=== PATIENT | male | born 1950 | race Two or more races ===

== ENCOUNTER 2024-08-20 14:48 | Outpatient (AMB) | payer OTHER, SELFPAY ==
--- NOTE | 2024-08-20 15:23 | HO.NEPHOV_ITS ---
Vital Signs 08/20/24 15:29 Height 5 ft 7 in Weight 195 lb 6 oz BMI 30.6 BP 152/62 H Blood Pressure Location Lt brachial Position Sitting Pulse 56 Pulse Source Pulse Oximeter Pulse Oximetry (%) 98 Oxygen Delivery Method Room Air Intake Visit Reasons: CKD-LVM Home Assessment Nurse Required: No Accompanied by: Spouse Allergies NSAIDS (Non-Steroidal Anti-Inflamma Allergy (Verified 08/20/24 15:) Unknown Penicillins Allergy (Verified 08/20/24 15:) Rash acetaminophen [From Percocet] Adverse Reaction (Verified 08/20/24 15:) Anxiety diazepam [From Valium] Adverse Reaction (Verified 08/20/24 15:) Swelling oxycodone [From Percocet] Adverse Reaction (Verified 08/20/24:) Anxiety risperidone [From Risperdal] Adverse Reaction (Verified 08/20/24:) Unknown spironolactone Adverse Reaction (Verified 08/20/24:) Unknown HPI Comments Details: I had the pleasure of seeing Rogers in follow-up for his chronic kidney disease. 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 He said he had coronary CT angiography by [facility], results of which were unavailable at the time of this visit. He has been having shortness of breath on exertion with edema. He was taking nonsteroidal anti-inflammatories in the past which has been discontinued. He has no hypoglycemia. He had congestive heart failure in January of 2024. Echocardiogram done at that time showed hyperdynamic LV systolic function with no significant regional wall motion abnormality, indeterminate LV diastolic dysfunction due to atrial fibrillation, normal RV systolic function and size with biatrial enlargement. He had dilated IVC without significant collapse suggestive of elevated right-sided atrial pressures. At that time he needed intravenous diuretics and BiPAP which was transitioned to oral diuretics. He denies any chest pain, nausea, vomiting, diarrhea. He has not had any recent blood work. He is still on metformin. His weight is stable. He is compliant with his medications and low-sodium diet. His blood sugars have been labile. [facility] Medical History (Updated 08/21/24 @ 14:22 by Brian Castano MD) Varicose vein of leg Ulnar neuropathy Restless leg syndrome Obesity Peptic ulcer disease Pedal edema Osteoarthritis HOLLIS (obstructive sleep apnea) New onset tinnitus of right ear Lumbosacral spondylolysis Lumbar radiculopathy Hypertension Hyperlipidemia Hiatal hernia Flexor tenosynovitis of finger Erectile dysfunction Drug-induced gynecomastia Diastasis recti Diabetic neuropathy Diabetes mellitus, type II Coronary artery disease Chronic kidney disease, stage 3a Chronic back pain Carpal tunnel syndrome Carotid artery stenosis Bilateral inguinal hernia Angle-closure glaucoma Surgical History History of coronary artery stent placement Social History Alcohol intake: never Patient Tobacco Use Status: Never used Tobacco Review of Systems Const All systems reviewed & are unremarkable except as noted in HPI and below Physical Exam Vital Signs: Last Vital Signs Pulse 56 08/20/24 15:29 BP 152/62 H 08/20/24 15:29 Pulse Ox 98 08/20/24 15:29 Oxygen Delivery Method Room Air 08/20/24 15:29 BMI result Body Mass Index 30.6 Const General: comfortable and no acute distress Orientation/consciousness: patient oriented x3 HEENT Head: Yes normocephalic Mouth: Normal oral and palatal mucosa present Eyes EOM: EOMs intact bilaterally Neck Neck: Yes supple Resp Auscultation: clear to auscultation bilaterally Cardio Jugular venous distension: no JVD Rate: regular rate GI Palpation (GI): Soft to palpation Auscultation: normal bowel sounds General: Yes no CVA tenderness Back/Spine/Pelvis Back: no CVA tenderness Skin General skin exam: no rashes or lesions noted Neuro General: patient oriented x3 and moves all extremities Extrem General: Yes edema Results Reviewed Nephrology Results: No Data to Display Assessment & Plan Assessment & Plan (1) CKD stage 4 due to type 2 diabetes mellitus: Code(s): E11.22 - Type 2 diabetes mellitus with diabetic chronic kidney disease; N18.4 - Chronic kidney disease, stage 4 (severe) Category: Medical (2) Hypertension: Code(s): I10 - Essential (primary) hypertension Category: Medical Qualifiers: Hypertension type: primary hypertension Qualified Code(s): I10 - Essential (primary) hypertension (3) Secondary hyperparathyroidism of renal origin: Code(s): N25.81 - Secondary hyperparathyroidism of renal origin Category: Medical Plan Rogers has diabetic nephropathy. He has history of AMANDA needing one treatment with hemodialysis. He has been having edema as well as shortness of breath on exertion. He is on torsemide 60 mg twice daily. His blood pressure has been fluctuant. He is mildly hypervolemic. He keeps up with his CPAP. Sestamibi scan was done in the past which showed parathyroid adenoma and was seen by [facility]. He also has history of carotid stenosis and hyperuricemia. I ordered repeat blood work. I plan to cut back his metformin and start him on Jardiance in addition to maximizing Imdur. He should continue low-sodium diet and weigh himself daily. He should avoid nonsteroidal anti-inflammatories. All these have been explained in detail to him and his . Time spent retrieving all the data from [facility], patient encounter and documentation 43 minutes. Follow-up appointment given in 2 weeks' time Orders: Orders Creatinine 08/20/24 - Type 2 diabetes mellitus with diabetic chronic kidney disease, I10 - Essential (primary) hypertension, N18.4 - Chronic kidney disease, stage 4 (severe) Electrolytes 08/20/24 - Type 2 diabetes mellitus with diabetic chronic kidney disease, I10 - Essential (primary) hypertension, N18.4 - Chronic kidney disease, stage 4 (severe) Protein Creatinine Ratio, Ur 08/20/24 - Type 2 diabetes mellitus with diabetic chronic kidney disease, I10 - Essential (primary) hypertension, N18.4 - Chronic kidney disease, stage 4 (severe) Phosphorus 08/20/24 - Type 2 diabetes mellitus with diabetic chronic kidney disease, I10 - Essential (primary) hypertension, N18.4 - Chronic kidney disease, stage 4 (severe) Blood Urea Nitrogen 08/20/24 - Type 2 diabetes mellitus with diabetic chronic kidney disease, I10 - Essential (primary) hypertension, N18.4 - Chronic kidney disease, stage 4 (severe) Calcium 08/20/24. - Type 2 diabetes mellitus with diabetic chronic kidney disease, I10 - Essential (primary) hypertension, N18.4 - Chronic kidney disease, stage 4 (severe) Complete Blood Count Auto Diff 08/20/24 - Type 2 diabetes mellitus with diabetic chronic kidney disease, I10 - Essential (primary) hypertension, N18.4 - Chronic kidney disease, stage 4 (severe) Parathyroid Hormone Intact 08/20/24 - Type 2 diabetes mellitus with diabetic chronic kidney disease, I10 - Essential (primary) hypertension, N18.4 - Chronic kidney disease, stage 4 (severe) Vitamin D 25-OH Total 08/20/24 E11.22 - Type 2 diabetes mellitus with diabetic chronic kidney disease, I10 - Essential (primary) hypertension, N18.4 - Chronic kidney disease, stage 4 (severe) Coding Level of Care Code Est Pt Level 5 (62683) Diagnoses CKD stage 4 due to type 2 diabetes mellitus E11.22; N18.4 Primary hypertension I10 Hypertension type: primary hypertension Secondary hyperparathyroidism of renal origin N25.81
[2024-08-20 15:29] VITALS: BP 152/62; PULSE 56; O2SAT 98; BMI 30.6
== END 2024-08-20 16:26 | disposition home or self-care (01) ==
LOC: HO.HKAS 14:49
PROVIDERS: PCP Internal Medicine; Visit Provider Internal Medicine Nephrology
DX: I12.9 Hypertensive chronic kidney disease with stage 1 through stage 4 chronic kidney disease, or unspecified chronic kidney disease (principal); E11.22 Type 2 diabetes mellitus with diabetic chronic kidney disease; N18.4 Chronic kidney disease, stage 4 (severe); N25.81 Secondary hyperparathyroidism of renal origin
CPT/HCPCS: 99215

== ENCOUNTER → 2024-08-20 14:48 | Outpatient (BNVA) | payer OTHER, SELFPAY | PROVIDERS: PCP Internal Medicine; Visit Provider Internal Medicine Nephrology | DX: E11.22 Type 2 diabetes mellitus with diabetic chronic kidney disease (principal); E11.21 Type 2 diabetes mellitus with diabetic nephropathy; I12.9 Hypertensive chronic kidney disease with stage 1 through stage 4 chronic kidney disease, or unspecified chronic kidney disease; N18.4 Chronic kidney disease, stage 4 (severe); R80.9 Proteinuria, unspecified; N25.81 Secondary hyperparathyroidism of renal origin | CPT/HCPCS: 99212 ==

== ENCOUNTER 2024-09-05 11:52 | Outpatient (AMB) | payer OTHER, SELFPAY ==
[2024-09-05 12:00] VITALS: BP 156/80; PULSE 54; O2SAT 99; BMI 31.8
--- NOTE | 2024-09-05 12:00 | HO.NEPHOV ---
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 Required: No Accompanied by: Spouse Allergies NSAIDS (Non-Steroidal Anti-Inflamma Allergy (Verified 09/05/24 12:05) Unknown Penicillins Allergy (Verified 09/05/24 12:05) Rash acetaminophen [From Percocet] Adverse Reaction (Verified 09/05/24 12:05) Anxiety diazepam [From Valium] Adverse Reaction (Verified 09/05/24 12:05) Swelling oxycodone [From Percocet] Adverse Reaction (Verified 09/05/24 12:05) Anxiety risperidone [From Risperdal] Adverse Reaction (Verified 09/05/24 12:05) Unknown spironolactone Adverse Reaction (Verified 09/05/24 12:05) Unknown HPI Comments Details: Rogers was seen in follow-up for his chronic kidney disease. 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 He is due to have cardiology follow up today.He has been edema but has nephropathy & has edema. He was taking nonsteroidal anti-inflammatories in the past which has been discontinued. He has no hypoglycemia. He had congestive heart failure in January of 2024. Echocardiogram done at that time showed hyperdynamic LV systolic function with no significant regional wall motion abnormality, indeterminate LV diastolic dysfunction due to atrial fibrillation, normal RV systolic function and size with biatrial enlargement. Last imaging showed dilated IVC without significant collapse suggestive of elevated right-sided atrial pressures. He denies any chest pain, nausea, vomiting, diarrhea. He has not had any recent blood work. He is still on metformin. His weight is stable. He is compliant with his medications and low-sodium diet. His blood sugars have been labile. [facility] Medical History (Updated 09/05/24 @ 12:59 by Brian Castano MD) Varicose vein of leg Ulnar neuropathy Restless leg syndrome Obesity Peptic ulcer disease Pedal edema Osteoarthritis HOLLIS (obstructive sleep apnea) New onset tinnitus of right ear Lumbosacral spondylolysis Lumbar radiculopathy Hypertension Hyperlipidemia Hiatal hernia Flexor tenosynovitis of finger Erectile dysfunction Drug-induced gynecomastia Diastasis recti Diabetic neuropathy Diabetes mellitus, type II Coronary artery disease Chronic kidney disease, stage 3a Chronic back pain Carpal tunnel syndrome Carotid artery stenosis Bilateral inguinal hernia Angle-closure glaucoma Surgical History History of coronary artery stent placement Social History Alcohol intake: never Patient Tobacco Use Status: Never used Tobacco Review of Systems Const All systems reviewed & are unremarkable except as noted in HPI and below Physical Exam Vital Signs: Last Vital Signs Pulse 54 09/05/24 12:00 BP 156/80 H 09/05/24 12:00 Pulse Ox 99 09/05/24 12:00 Oxygen Delivery Method Room Air 09/05/24 12:00 BMI result Body Mass Index 31.8 Const General: comfortable and no acute distress Orientation/consciousness: patient oriented x3 HEENT Head: Yes normocephalic Mouth: Normal oral and palatal mucosa present Eyes EOM: EOMs intact bilaterally Neck Neck: Yes supple Resp Auscultation: clear to auscultation bilaterally Cardio Jugular venous distension: no JVD Rate: regular rate GI Palpation (GI): Soft to palpation Auscultation: normal bowel sounds General: Yes no CVA tenderness Back/Spine/Pelvis Back: no CVA tenderness Skin General skin exam: no rashes or lesions noted Neuro General: patient oriented x3 and moves all extremities Extrem General: Yes edema Results Reviewed Nephrology Results: No Data to Display Assessment & Plan Assessment & Plan (1) Hypertension: Code(s): I10 - Essential (primary) hypertension Category: Medical Qualifiers: Hypertension type: primary hypertension Qualified Code(s): I10 - Essential (primary) hypertension (2) CKD stage 4 due to type 2 diabetes mellitus: Code(s): E11.22 - Type 2 diabetes mellitus with diabetic chronic kidney disease; N18.4 - Chronic kidney disease, stage 4 (severe) Category: Medical (3) Secondary hyperparathyroidism of renal origin: Code(s): N25.81 - Secondary hyperparathyroidism of renal origin Category: Medical (4) Edema: Code(s): R60.9 - Edema, unspecified Category: Medical Qualifiers: Edema type: localized Qualified Code(s): R60.0 - Localized edema (5) Hyperuricemia: Code(s): E79.0 - Hyperuricemia without signs of inflammatory arthritis and tophaceous disease Category: Medical Plan Rogers has diabetic nephropathy. He has history of AMANDA needing one treatment with hemodialysis. He has been having edema. He has proteinuria and is on Nifedipine. He is on torsemide 60 mg twice daily. His blood pressure has been fluctuant. He keeps up with his CPAP. Sestamibi scan was done in the past which showed parathyroid adenoma and has seen by [facility]. He also has history of carotid stenosis and hyperuricemia. I staretd him on Allopurinol 100 mg daily as well as Jardiance 10 mg daily. I ordered repeat blood work. I plan to cut back his metformin and increase his Jardiance in addition to maximizing Imdur. We shani have to take him off Nifedipne if his edema is persisting. He should continue low-sodium diet and weigh himself daily. He should avoid nonsteroidal anti-inflammatories. All these have been explained in detail to him and his . Follow-up appointment given in 2 months time Orders: Orders Electrolytes 2 Months E11.22 - Type 2 diabetes mellitus with diabetic chronic kidney disease, I10 - Essential (primary) hypertension, N18.4 - Chronic kidney disease, stage 4 (severe), N25.81 - Secondary hyperparathyroidism of renal origin Calcium 2 Months E11.22 - Type 2 diabetes mellitus with diabetic chronic kidney disease, I10 - Essential (primary) hypertension, N18.4 - Chronic kidney disease, stage 4 (severe), N25.81 - Secondary hyperparathyroidism of renal origin Complete Blood Count Auto Diff 2 Months E11.22 - Type 2 diabetes mellitus with diabetic chronic kidney disease, I10 - Essential (primary) hypertension, N18.4 - Chronic kidney disease, stage 4 (severe), N25.81 - Secondary hyperparathyroidism of renal origin Creatinine 2 Months E11.22 - Type 2 diabetes mellitus with diabetic chronic kidney disease, I10 - Essential (primary) hypertension, N18.4 - Chronic kidney disease, stage 4 (severe), N25.81 - Secondary hyperparathyroidism of renal origin Blood Urea Nitrogen 2 Months E11.22 - Type 2 diabetes mellitus with diabetic chronic kidney disease, I10 - Essential (primary) hypertension, N18.4 - Chronic kidney disease, stage 4 (severe), N25.81 - Secondary hyperparathyroidism of renal origin Medications: New allopurinol 100 mg PO DAILY 90 tabs 4RF empagliflozin (Jardiance) 10 mg PO DAILY 30 tabs 4RF Coding Level of Care Code Est Pt Level 4 (90457) Diagnoses Primary hypertension I10 Hypertension type: primary hypertension CKD stage 4 due to type 2 diabetes mellitus E11.22; N18.4 Secondary hyperparathyroidism of renal origin N25.81 Localized edema R60.0 Edema type: localized Hyperuricemia E79.0
== END 2024-09-05 12:32 | disposition home or self-care (01) ==
PROVIDERS: PCP Internal Medicine; Visit Provider Internal Medicine Nephrology
DX: I12.9 Hypertensive chronic kidney disease with stage 1 through stage 4 chronic kidney disease, or unspecified chronic kidney disease (principal); E11.22 Type 2 diabetes mellitus with diabetic chronic kidney disease; N18.4 Chronic kidney disease, stage 4 (severe); N25.81 Secondary hyperparathyroidism of renal origin; R60.0 Localized edema; E79.0 Hyperuricemia without signs of inflammatory arthritis and tophaceous disease
CPT/HCPCS: 99214

== ENCOUNTER → 2024-09-05 11:52 | Outpatient (BNVA) | payer OTHER, SELFPAY | PROVIDERS: PCP Internal Medicine; Visit Provider Internal Medicine Nephrology | DX: E11.22 Type 2 diabetes mellitus with diabetic chronic kidney disease (principal); I12.9 Hypertensive chronic kidney disease with stage 1 through stage 4 chronic kidney disease, or unspecified chronic kidney disease; N18.4 Chronic kidney disease, stage 4 (severe); N25.81 Secondary hyperparathyroidism of renal origin; R60.0 Localized edema; E79.0 Hyperuricemia without signs of inflammatory arthritis and tophaceous disease | CPT/HCPCS: 99212 ==

== ENCOUNTER 2024-11-14 10:48 | Outpatient (REF) | payer OTHER, SELFPAY ==
--- OUTSIDE RECORDS SUMMARY | 2024-11-14 14:34 | XMS_ITS | Clinical Summary ---
Author Organization [address] [place] [address] [place] [phone] Phone Care Team Providers Care Grocery Packer Name Role Phone Flakito Reyes MD Primary Care Provider Allergies Active Allergy Reactions Criticality Noted Date Comments Acetaminophen 01/25/2024 Diazepam Other 12/12/2023 valium Morphine 12/12/2023 Oxycodone 01/25/2024 Oxycodone-Acetaminophen 12/12/2023 Penicillins 01/25/2024 Risperidone 01/25/2024 Medications Medication Sig Dispensed Refills Start Date End Date Status apixaban (ELIQUIS) 5 mg tablet Take 1 tablet (5 mg total) by mouth 2 (two) times a day. 01/29/2024 Active vit B complx/folic acid/lysine (B COMPLEX VITAMINS PO) Take by mouth. Active carvediloL (COREG) 25 mg tablet Take 1 tablet (25 mg total) by mouth 2 (two) times a day with meals. 01/25/2024 Active cholecalciferol (VITAMIN D-3) 1,250 mcg (50,000 unit) capsule Take 1 capsule (50,000 Units total) by mouth. Active hydrALAZINE (APRESOLINE) 50 mg tablet Take 1 tablet (50 mg total) by mouth 3 (three) times a day. Active NIFEdipine CC (ADALAT CC) 90 mg 24 hr tablet Take 1 tablet (90 mg total) by mouth 1 (one) time each day. Active pantoprazole (PROTONIX) 40 mg EC tablet Take 1 tablet (40 mg total) by mouth 2 (two) times a day. Active spironolactone (ALDACTONE) 25 mg tablet Take 1 tablet (25 mg total) by mouth 1 (one) time each day. 05/07/2024 Active torsemide (DEMADEX) 20 mg tablet Take 3 tablets (60 mg total) by mouth 1 (one) time each day. 02/12/2024 Active potassium chloride (KLOR-CON M20) 20 mEq CR tablet Take 1 tablet (20 mEq total) by mouth 1 (one) time each day. Tablet may be swallowed whole (do not crush/chew/suck on) OR broken in half and each half swallowed separately OR dissolved (whole tablet) in ~4 ounces of water (allow ~2 minutes to dissolve, stir well and administer immediately). TOME DOS TABLETAS (40MEQ) POR VIA ORAL A DIARIO Active empagliflozin (Jardiance) 10 mg tablet Take 1 tablet (10 mg total) by mouth 1 (one) time each day in the morning. Active allopurinoL (ZYLOPRIM) 100 mg tablet Take 1 tablet (100 mg total) by mouth 1 (one) time each day. Active isosorbide mononitrate (IMDUR) 60 mg 24 hr tabletIndications:He art failure with preserved ejection fraction, unspecified HF chronicity (CMS/HCC),Coronary artery disease due to lipid rich plaque Take 1 tablet (60 mg total) by mouth 1 (one) time each day. Do not crush or chew. 30 each 09/05/2024 09/05/2025 Active Active Problems Problem Noted Date Diagnosed Date Coronary artery disease of n ative artery of [place] heart with stable angina pectoris 09/05/2024 Assessment & Plan (09/05/2024 4:04 PM EST): Patient does continue to endorse episodes of shortness of breath with exertion and mild chest discomfort. This has improved since discharge from the hospital with initiation of medication for CAD. At this time, I will increase his isosorbide. We did discuss the potential of moving forward cardiac catheterization and PCI as outlined above. I will see the patient back in 2 months to further evaluate whether or not he has had improvement in his symptoms. Instructed to call 911 or go to the emergency room should the patient begin to experience chest pain or pressure lasting greater than 10 minutes does not resolve with rest. Bruit of right carotid artery 09/05/2024 Assessment & Plan (09/05/2024 4:04 PM EST): Appreciated upon exam today. Subsequently, I have ordered carotid ultrasound to further evaluate for stenosis. Orders: Vascular US duplex carotid bilateral; Future (HFpEF) heart failure with preserved ejection fr action 02/12/2024 Assessment & Plan (09/05/2024 4:04 PM EST): Patient does appear to be mildly volume overloaded during today's exam. We did discuss the potential of increasing his torsemide temporarily. However, the patient has just come from his guest services director who is 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 Encouraged to continue to follow a low-sodium diet and perform daily weights. Patient will reach out to our office with a weight gain of 2 pounds in 1 day or 5 pounds in 5 days accompanied by worsening peripheral edema, shortness of breath or abdominal distention. Orders: ECG 12 lead isosorbide mononitrate (IMDUR) 60 mg 24 hr tablet; Take 1 tablet (60 mg total) by mouth 1 (one) time each day. Do not crush or chew. Lipid panel; Future Lipid panel Acute on chronic congestive heart failure with left ventricular diastolic dysfunction 01/25/2024 Overview (07/13/2024): Last Assessment & Plan: He appears mildly volume overloaded today as evident by worsening bilateral lower extremity edema. Subsequently, I have asked him to increase his torsemide Monday, Monday and Monday with updated blood work on Monday. Encouraged to continue to follow a low-sodium diet and to perform daily weights. Continue spironolactone, torsemide and carvedilol Aortic valve sclerosis 01/25/2024 Overview (07/13/2024): WITHOUT STENOSIS Atrial fibrillation 01/25/2024 Overview (07/13/2024): Last Assessment & Plan: Patient denies perception of recurrence of arrhythmia. He continues to be anticoagulated with full dose Eliquis as his weight is greater than 60 kg and his age is less than 80. Educated on risks and benefits of continuing with anticoagulation including increased risk for hemorrhage and decreased risk for stroke. Encouraged to seek emergent medical attention should the patient sustain a fall involving a head strike. The patient understands these risks and agrees to continue. Chest pain 01/25/2024 Overview (07/13/2024): Last Assessment & Plan: Patient had abnormal stress test. He is currently waiting to have cardiac CTA which is scheduled for May 29. I have started him on isosorbide in the interim to help with symptoms of shortness of breath and chest discomfort. Instructed to call 911 or go to the emergency room should the patient begin to experience chest pain or pressure lasting greater than 10 minutes does not resolve with rest. HLD (hyperlipidemia) 01/25/2024 Assessment & Plan (09/05/2024 4:04 PM EST): Continue statin therapy and be mindful of his dietary fat intake. I have given him a lipid slip to update fasting lipid profile to further evaluate lipid control. Goal LDL less than 70 however ideally 55 in the setting of coronary artery disease. Orders: Lipid panel; Future Lipid panel Vascular US duplex carotid bilateral; Future HTN (hypertension) 01/25/2024 Overview (07/13/2024): Last Assessment & Plan: Well controlled with a reading of 134/50. I have made no changes to his medications. Educated on the importance of diet lifestyle to help further assist in reducing blood pressure. The patient was encouraged to follow low-salt low-fat diet, make purposeful strides towards weight loss, and engage in routine aerobic exercise as tolerated. Assessment & Plan (09/05/2024 4:04 PM EST): Continues to be mildly elevated during today's exam. I am increasing his isosorbide for his anginal symptoms. Educated on the importance of diet lifestyle to help further assist in reducing blood pressure. The patient was encouraged to follow low-salt low-fat diet, make purposeful strides towards weight loss, and engage in routine aerobic exercise as tolerated. Respiratory failure 01/25/2024 SOB (shortness of breath) 01/25/2024 Encounters Date Type Department Care Team Description 10/11/2024 Telephone [facility] - [address] [place] [address] Saúl Smith MA Results (Carotid duplex results) 09/23/2024 10:30 AM EST Ancillary Procedure [facility] - [address] [place] [address] Coronary artery disease due to lipid rich plaque; Hyperlipidemia, unspecified hyperlipidemia type; Bruit of right carotid artery 09/05/2024 3:10 PM EST Office Visit [facility] - [address] [place] [phone] Mar Jones NP Heart failure with preserved ejection fraction, unspecified HF chronicity (CMS/HCC) (Primary Dx); Coronary artery disease due to lipid rich plaque; Hyperlipidemia, unspecified hyperlipidemia type; Bruit of right carotid artery; Hypertension, unspecified type; Coronary artery disease of [place] artery of [place] heart with stable angina pectoris (CMS/HCC) from Last 3 Months Surgical History Surgery Date Site/Laterality Comments CARDIAC CATHETERIZATION DONE ON 07/04/2024 AT [facility] INDICATIONS:ABNORMAL STRESS TEST Medical History Medical History Date Comments Acute on chronic congestive heart failure with left ventricular diastolic dysfunction (CMS/HCC) Atrial fibrillation (CMS/HCC) HTN (hypertension) Aortic valve sclerosis Heart failure with preserved ejection fraction ( CMS/HCC) HLD (hyperlipidemia) Chest pain SOB (shortness of breath) Hx of respiratory failure Family History Medical History Relation Name Comments [place] Father Diabetes Other HLD Other Hypertension Other Relation Name Status Comments Father Other Social History Tobacco Use Types Packs/Day Years Used Date Smoking Tobacco: Never Smokeless Tobacco: Never Tobacco Cessation:Counseling Given: Not Answered Alcohol Use Standard Drinks/Week Comments Never 0 (1 standard drink = 0.6 oz pur e alcohol) Sex and Gender Information Value Date Recorded Sex Assigned at Not on file Gender Identity Not on file Sexual Orientation Not on file Job Start Date Occupation Industry Not on file Not on file Not on file Obstetrics History Last Filed Vital Signs Vital Sign Reading Time Taken Comments Blood Pressure 142/84 09/05/2024 3:14 PM EST Pulse 60 09/05/2024 3:14 PM EST Temperature - - Respiratory Rate - - Oxygen Saturation 98% 09/05/2024 3:14 PM EST Inhaled Oxygen Concentration - - Weight 87.1 kg (192 lb) 09/05/2024 3:14 PM EST Height 170.2 cm (5' 7 ) 05/03/2024 11:14 AM EDT Body Mass Index 30.07 05/03/2024 11:14 AM EDT Plan of Treatment Upcoming Encounters Date Type Department Care Team (Late st Contact Info) Description 11/18/2024 8:40 AM EST Office Visit [facility] [address] [facility] [address] [place] [address] Mar Jones, BENJA [address] [place] [address] Health Maintenance Due Date Last Done Comments Diabetes: Annual Foot Exam 1962 Diabetes: Annual Retina Eye Exam 1962 RSV Immunization Patients 60+ Years Old (1 - Risk 60-74 years 1-dose series) 2012 Colorectal Cancer Screening: Colonoscopy 05/14/2024 Depression Screening 05/14/2024 Falls Risk Assessment 05/14/2024 Hepatitis C Screening 05/14/2024 Medicare Annual Wellness Visit 05/14/2024 Social Influencers of Health Screening 05/14/2024 COVID-19 Vaccine ( season) 2024 09/15/2023, 02/24/2022, 08/29/2021, Additional history exists Diabetes: Annual Urine Albumin-Creatinine Ratio (uACR) 09/05/2024 Diabetes: Blood Sugar Control Test (HGBA1C) 09/05/2024 Diabetes: Annual GFR (Glomerular Filtration Rate) 07/08/2025 07/08/2024, 07/08/2024, 06/25/2024, Additional history exists Hypertension/CHF/CAD Annual BMP Blood Test 07/08/2025 07/08/2024, 07/08/2024, 06/25/2024, Additional history exists Cholesterol Screening (Lipid Panel) 10/14/2029 10/14/2024 DTaP,Tdap,and Td Vaccines (5 - Td or Tdap) 02/28/2033 02/28/2023, 08/16/2013, 08/16/2004, Additional history exists Hepatitis A Vaccines Aged Out 08/05/2010, 02/10/2010, 08/03/2009 No longer eligible based on patient's age to complete this topic Hepatitis B Vaccines Completed 08/05/2010, 06/03/2010, 02/10/2010 Zoster Vaccines Completed 05/04/2021, 02/13, 11/19/2013 Pneumococcal Vaccine: 65+ Years Completed 02/22/2024, 08/20/2019, 01/09/2015, Additional history exists Influenza Vaccine Completed 07/30/2024, , 10/18/2023, Additional history exists HIB Vaccines Aged Out No longer eligi ble based on patient's age to complete this topic HPV Vaccines Aged Out No longer eligi ble based on patient's age to complete this topic IPV Vaccines Aged Out No longer eligi ble based on patient's age to complete this topic MMR Vaccines Aged Out No longer eligi ble based on patient's age to complete this topic Meningococcal ACWY Vaccine Aged Out N o longer eligible based on patient's age to complete this topic RSV Immunization Patients Under 20 months Aged Out No longer eligible based on patient's age to complete this topic Varicella Vaccines Aged Out No longer eligible based on patient's age to complete this topic Procedures Procedure Name Priority Date/Time Associated Diagnosis Comments LIPID PANEL WITH REFLEX TO DIRECT LDL Routine 10/14/2024 9:58 AM EST Coronary artery disease due to lipid rich plaque VAS US DUPLEX CAROTID BILATERAL Routine 09/23/2024 11:04 AM EST Coronary artery disease due to lipid rich plaque Hyperlipidemia, unspecified hyperlipidemia type Bruit of right carotid artery ECG 12-LEAD Routine 09/05/2024 3:59 PM EST Heart failure with preserved ejection fraction, unspecified HF chronicity (CMS/HCC) ANNUAL BMP BLOOD TEST Routine 07/08/2024 from Last 3 Months or Most Recently Relevant to Health Maintenance Results * (ABNORMAL) Lipid panel with reflex to direct LDL (10/14/2024 9:58 AM EST) [facility] Cholesterol 128 0 - 200 mg/dL LAB CHEMISTRY METHOD 10/14/2024 4:26 PM EST [facility] Triglycerides 208(H) 0 - 150 mg/dL LAB CHEMISTRY METHOD 10/14/2024 4:26 PM EST [facility] HDL 36(L) >=40 mg/dL LAB CHEMISTRY METHOD 10/14/2024 4:26 PM EST [facility] LDL Calculated 50 0 - 100 mg/dL LAB CHEMISTRY METHOD 10/14/2024 4:26 PM EST [facility] VLDL Cholesterol Jj 41.6 mg/dL LAB CHEMISTRY METHOD 10/14/2024 4:26 PM EST [facility] Non HDL Chol. (LDL+VLDL) 92 <145 mg/dL LAB CHEMISTRY METHOD 10/14/2024 4:26 PM EST [facility] Chol/HDL Ratio 3.6 0.0 - 4.4 LAB CHEMISTRY METHOD 10/14/2024 4:26 PM EST [facility] Blood Venous blood specimen / Unknown Venipuncture / Unknown 10/14/2024 9:58 AM EST 10/14/2024 9:58 AM EST Mar Jones CAMPUS SECURITY DIRECTOR LAB BLOOD YENI MEANS [facility]) [facility] [address] [place] [address], * Vascular US duplex carotid bilateral (09/23/2024 11:04 AM EST) Left CCA dist sys 100 cm/s [facility] LAB Left CCA dist naik 30 cm/s [facility] LEFT COMMON CAROTID ARTERY MID S 119 cm/s [facility] LEFT COMMON CAROTID ARTERY MID D 22 cm/s [facility] LAB Left CCA prox sys 100 cm/s CV [facility] LAB Left CCA prox naik 30 cm/s CV [facility] LAB Left ICA dist sys 88 cm/s CV [facility] LAB Left ICA dist naik 30 cm/s CV [facility] LAB Left ICA mid sys 108 cm/s CV [facility] LAB Left ICA mid naik 26 cm/s CV [facility] LAB Left ICA prox sys 92 cm/s CV VAS LAB Left ICA prox naik 27 cm/s CV [facility] LAB Left ECA sys 257 cm/s [facility] LEFT EXTERNAL CAROTID ARTERY D 36 cm/s [facility] Left Prox Subclavian PSV 232 cm/s [facility] Left vertebral sys 29 cm/s [facility] Right cca dist sys 188 cm/s [facility] LAB Right CCA dist naik 19 cm/s [facility] RIGHT COMMON CAROTID ARTERY MID S 165 cm/s [facility] RIGHT COMMON CAROTID ARTERY MID D 17 cm/s CV [facility] LAB Right CCA prox sys 123 cm/s CV [facility] LAB Right CCA prox naik 23 cm/s CV VAS LAB Right ICA dist sys 94 cm/s CV VAS LAB Right ICA dist naik 22 cm/s CV [facility] LAB Right ICA mid sys 111 cm/s CV [facility] LAB Right ICA mid naik 26 cm/s CV [facility] LAB Right ICA prox sys 107 cm/s [facility] LAB Right ICA prox naik 17 cm/s [facility] LAB Right eca sys 287 cm/s [facility] LAB RIGHT EXTERNAL CAROTID ARTERY D 22 cm/s [facility] Right Prox Subclavian PSV 124 cm/s [facility] Right vertebral sys 56 cm/s [facility] LAB Anatomical Region Laterality Modality Vascular, Abdomen Ultrasound Narrative 10/04/2024 6:38 PM EST ?Right ICA: There is moderate heterogeneous plaque. ?Left ICA: There is moderate heterogeneous plaque. RIGHT. 1. ??There is atherosclerotic plaque in the carotid system as noted above. 2. ??There is less than 50% stenosis in the internal carotid artery based on Doppler velocity. 3. ??The subclavian artery has normal Doppler flow pattern. 4. ??Vertebral artery has normal antegrade flow. LEFT. 1. ??There is atherosclerotic plaque in the carotid system as noted above. 2. ??There is less than 50% stenosis in the internal carotid artery based on Doppler velocity. 3. ??The subclavian artery has normal Doppler flow pattern. 4. ??Vertebral artery has normal antegrade flow. Right Carotid The CCA has moderate heterogeneous plaque. The ICA has moderate heterogeneous plaque. The ECA has moderate heterogeneous plaque. Vertebral flow is antegrade. Left Carotid The CCA has moderate heterogeneous plaque. The ICA has moderate heterogeneous plaque. The ECA has moderate heterogeneous plaque. The vertebral artery flow is retrograde. Forestry Contractor Details A rivas scale, color and doppler analysis ultrasound was performed. During the study longitudinal and transverse views were obtained. Pulsed wave doppler was performed. Overall the study quality was adequate. Mar Jones NP CV VASCULAR CO OCEDURES * ECG 12 lead (09/05/2024 3:59 PM EST) Ventricular Rate ECG 60 BPM GEMUSE Atrial Rate 60 BPM GEMUSE P-R Interval 278 ms GEMUSE QRS Duration 96 ms GEMUSE Q-T Interval 418 ms GEMUSE QTc 418 ms GEMUSE P Wave [place] 49 degrees GEMUSE R [place] 43 degrees GEMUSE T [place] 69 degrees GEMUSE ECG Interpretation Sinus rhythm with 1st degree A-V block Poor R wave progression When compared with ECG of 04-JUL-2024 08:38, Premature ventricular complexes is no longer present Confirmed by Millicent JACOBS YUFENG [id number]) on 09/05/2024 4:38:57 PM GEMUSE 09/05/2024 3:21 PM EST 09/05/2024 4:38 PM EST Mar Jones NP ECG ORDERABLES GEMUSE * Annual BMP Blood Test (07/08/2024) Pathologist [facility] Annual BMP Blood Test abstracted Historical Provider MD ELIZABETH Yeung from Last 3 Months or Most Recently Relevant to Health Maintenance Care Teams Grocery Packer Relationship Specialty Start Date End Date Flakito Reyes MD [address] [place] [id number] PCP - General 01/03/24
--- OUTSIDE RECORDS SUMMARY | 2024-11-14 14:34 | XMS_ITS | Encounter Summary ---
Author Organization [facility] Address [address] [place] [address] Care Team Providers Care Retail Assistant Name Role Phone Flakito Reyes MD Primary Care Provider [phone] Reason for Visit * Reason Onset Date Comments Results 10/11/2024 Carotid duplex r esults Encounter Details Date Type Department Care Team ([facility] st Contact Info) Description 10/11/2024 Telephone [facility] - [facility] [address] [facility] [address] [place] [address] Saúl Smith MA Results (Carotid duplex results) Social History Tobacco Use Types Packs/Day Years Used Date Smoking Tobacco: Never Smokeless Tobacco: Never Alcohol Use Standard Drinks/Week Comments Never 0 (1 standard drink = 0.6 oz pur e alcohol) Sex and Gender Information Value Date Recorded Sex Assigned at Not on file Gender Identity Not on file Sexual Orientation Not on file Job Start Date Occupation Industry Not on file Not on file Not on file documented as of this encounter Progress Notes * Saúl Smith MA - 10/21/2024 10:35 AM EST Sukhi Manuel upon further review of pt's OV note from pcp pt is already on Atorvastatin 80 mg qd. I did check with pharmacy and he had it last filled in 09/2024. Per Mar no med adjustments at this time. Will continue to monitor. I will call at some point today to inform pt with child care center administrator. Thank you. * Saúl Smith MA - 10/17/2024 8:13 AM EST Lipid results in chart. Labs show a 208 triglycerides. Please advise. Thank you. * Saúl Smith MA - 10/11/2024 4:01 PM EST Spoke to pt with tongan interpretor on the phone. Relayed message to pt from Mar Jones NP. Pt confirmed he did not have fasting cholesterol drawn he is aware that he needs to have this done [place] Monday per Mar. Pt agrees and will go to to [address] [place] [address] Monday. He is aware of U/S results as well. * Saúl Smith MA - 10/11/2024 4:01 PM EST ----- Message from A BENJA Jones sent at 10/11/2024 3:58 PM EST ----- Can we please reach out to this patient and ask if he has had his lipid panel drawn yet. The patient's carotid duplex came back noted moderate plaque bilaterally and he will likely need to be on statin therapy as well as aspirin in light of this bryan que as well as his coronary disease. documented in this encounter Plan of Treatment Upcoming Encounters Date Type Department Care Team (Late st Contact Info) Description 11/18/2024 8:40 AM EST Office Visit [facility] - [facility] [address] [facility] [address] [place] [address] Mar Jones NP [address] [facility] [address] [place] [phone] documented as of this encounter Results * (ABNORMAL) Lipid panel with reflex to direct LDL (10/14/2024 9:58 AM EST) [facility] Cholesterol 128 0 - 200 mg/dL LAB CHEMISTRY METHOD 10/14/2024 4:26 PM EST [facility] Triglycerides 208(H) 0 - 150 mg/dL LAB CHEMISTRY METHOD 10/14/2024 4:26 PM [facility] HDL 36(L) >=40 mg/dL LAB CHEMISTRY METHOD 10/14/2024 4:26 PM [facility] LDL Calculated 50 0 - 100 mg/dL LAB CHEMISTRY METHOD 10/14/2024 4:26 PM [facility] VLDL Cholesterol Jj 41.6 mg/dL LAB CHEMISTRY METHOD 10/14/2024 4:26 PM [facility] Non HDL Chol. (LDL+VLDL) 92 <145 mg/dL LAB CHEMISTRY METHOD 10/14/2024 4:26 PM [facility] Chol/HDL Ratio 3.6 0.0 - 4.4 LAB CHEMISTRY METHOD 10/14/2024 4:26 PM [facility] Blood Venous blood specimen / Unknown Venipuncture / Unknown 10/14/2024 9:58 AM EST 10/14/2024 9:58 AM EST Mar Jones VIAL GAUGER LAB BLOOD YENI MEANS [facility] Organization Address City/State/ZIP Co de Phone Number [facility] [address] [place] [address], documented in this encounter Visit Diagnoses Diagnosis Coronary artery disease due to lipid rich plaque- Primary documented in this encounter Care Teams Retail Assistant Relationship Specialty Start Date End Date Flakito Reyes MD [address] [place] [id number] PCP - General 01/03/24 documented as of this encounter
--- OUTSIDE RECORDS SUMMARY | 2024-11-14 14:34 | XMS_ITS ---
Author Organization [facility] Address Unknown Allergies, Adverse Reactions, Alerts Substance Reaction Status Noted Date Resolved Date Valium active 11/07/2023 Spironolactone active 11/07/2023 RisperDAL active 11/07/2023 Percocet active 11/07/2023 Penicillin active 11/07/2023 NSAIDs active 11/07/2023 Morphine active 11/07/2023 Problems Problem Status Start Date End Date SPONTANEOUS BACTERIAL PERITO NITIS (Primary) (K65.2 - ICD-10-CM) ACTIVE 11/07/2023 ANEMIA IN CHRONIC KIDNEY DISEASE (D63.1 - ICD-10-CM) A CTIVE 11/07/2023 MYOCARDIAL INFARCTION TYPE 2 (I21.A1 - ICD-10-CM) ACTI VE 11/07/2023 EPISTAXIS (R04.0 - ICD-10-CM) ACTIVE 11/27/2023 ANEMIA, UNSPECIFIED (D64.9 - ICD-10-CM) ACTIVE 0 11/27/2023 PERITONITIS, UNSPECIFIED (K65.9 - ICD-10-CM) ACTIVE 11/27/2023 SEVERE SEPSIS WITH SEPTIC SHOCK (R65.21 - ICD-10-CM) A CTIVE 10/29/2023 UNSTEADINESS ON FEET (R26.81 - ICD-10-CM) ACTIVE 11/08/2023 DIFFICULTY IN WALKING, NOT E LSEWHERE CLASSIFIED (R26.2 - ICD-10-CM) ACTIVE 11/08/2023 MUSCLE WEAKNESS (GENERALIZED) (M62.81 - ICD-10-CM) ACT CHARLIE 10/31/2023 ACUTE KIDNEY FAILURE WITH TU BULAR NECROSIS (N17.0 - ICD-10-CM) ACTIVE 11/07/2023 BODY MASS INDEX [BMI] 32.0-3 2.9, ADULT (Z68.32 - ICD-10-CM) ACTIVE 11/07/2023 CHRONIC KIDNEY DISEASE, UNSPECIFIED (N18.9 - ICD-10-CM ) ACTIVE 11/07/2023 CHRONIC KIDNEY DISEASE, STAG E 3 UNSPECIFIED (N18.30 - ICD-10-CM) ACTIVE 11/07/2023 ESSENTIAL (PRIMARY) HYPERTENSION (I10 - ICD-10-CM) ACT CHARLIE 11/07/2023 CHRONIC ATRIAL FIBRILLATION, UNSPECIFIED (I48.20 - ICD-10-CM) ACTIVE 11/07/2023 ATHEROSCLEROTIC HEART DISEAS E OF [place] CORONARY ARTERY WITHOUT ANGINA PECTORIS (I25.10 - ICD-10-CM) ACTIVE 11/07/2023 OTHER MYOCARDIAL INFARCTION TYPE (I21.A9 - ICD-10-CM) ACTIVE 11/07/2023 TYPE 2 DIABETES MELLITUS WIT HOUT COMPLICATIONS (E11.9 - ICD-10-CM) ACTIVE 11/07/2023 OBSTRUCTIVE SLEEP APNEA (GORDY LT) (PEDIATRIC) (G47.33 - ICD-10-CM) ACTIVE 11/07/2023 DEPRESSION, UNSPECIFIED (F32.A - ICD-10-CM) ACTIVE 11/07/2023 NEED FOR ASSISTANCE WITH PERSONAL CARE (Z74.1 - ICD-10 -CM) ACTIVE 10/31/2023 ACUTE KIDNEY FAILURE, UNSPECIFIED (N17.9 - ICD-10-CM) ACTIVE 10/29/2023 Encounters Encounter Performer Performer Role Encounter Diagnoses Location Date Leave - [facility]) - Acute care hospital [facility] 11/07/2023 08:57 pm EST - 11/19/2023 12:24 pm EST Discharge - Discharged to home or self care - [facility] - Private home/apt. with home health services [facility] 11/21/2023 06:05 pm EST - 11/29/2023 03:15 pm EST Reason For Referral Bleeding (other than GI) Immunizations Vaccine Date Influenza 08/18/2022 12:00 am EDT Hepatitis B 06/03/2010 12:00 am EDT Pneumococcal Conjugate Vaccine (PCV13) 0 01/09/2015 12:00 am EDT Pneumococcal Polysaccharide Vaccine (PPS V23) 08/20/2019 12:00 am EST SARS-COV-2 (COVID-19) 01/21/2021 12:00 a m EDT SARS-COV-2 (COVID-19) 12/31/2020 12:00 a m EDT SARS-COV-2 (COVID-19 BOOSTER) 02/24/2022 12:00 am EDT SARS-COV-2 (COVID-19 BOOSTER) 08/29/2021 12:00 am EST Social History
--- OUTSIDE RECORDS SUMMARY | 2024-11-14 14:35 | XMS_ITS | Clinical Summary ---
Author Organization [facility] Address [address] [address] [place] [address] Phone Care Team Providers Care Digital Sales Executive Name Role Phone Flakito Reyes MD Primary Care Provider Allergies Active Allergy Reactions Criticality Noted Date Comments Diazepam 06/05/2023 Other reaction(s): Sweating bad reaction pt does not remeber reaction Morphine Other (see comments) 06/05/2023 Nsaids 06/05/2023 Penicillins 10/12/2021 Oxycodone-Acetaminophen 10/12/2021 Risperidone 08/06/2001 Other reaction(s): Drug-induced dystonia Spironolactone Other (see comments) 06/05/2023 Medications omeprazole (PriLOSEC) [address] capsule Take 1 capsule by mouth 2 (two) times a day Active acetaminophen (TYLENOL 8 HOUR) 650 MG 8 hr tablet Take 2 tablets by mouth 3 (three) times a day Active aspirin (ST WILDER) 81 MG EC tablet Take 1 tablet by mouth 1 (one) time each day Active atorvastatin (LIPITOR) 80 MG tablet Take 1 tablet by mouth 1 (one) time each day Active carvedilol (COREG) 25 MG tablet Take 1 tablet by mouth 2 (two) times a day Active cholecalciferol (VITAMIN D-3) 25 MCG (1000 UT) capsule Take 1 capsule by mouth 1 (one) time each day Active cloNIDine (CATAPRES) 0.2 MG tablet Take 1 tablet by mouth 2 (two) times a day 09/12/2016 Active cyclobenzaprine (FLEXERIL) 10 MG tablet Take 1 tablet by mouth 1 (one) time each day Active Dulaglutide (Trulicity) 0.75 MG/0.5ML solution pen-injector Active eplerenone (INSPRA) 50 MG tablet Take 1 tablet by mouth 1 (one) time each day 09/14/2018 Active hydrALAZINE (APRESOLINE) 100 MG tablet Take 1 tablet by mouth 2 (two) times a day 01/15/2017 Active lisinopril (PRINIVIL,ZESTR IL) 40 MG tablet Take 1 tablet by mouth 2 (two) times a day 02/15/2016 Active metFORMIN (GLUCOPHAGE) 1000 MG tablet Take 1 tablet by mouth 2 (two) times a day Active sertraline (ZOLOFT) 50 MG tablet Take 1 tablet by mouth 1 (one) time each day Active terazosin (HYTRIN) 5 MG capsule Take 1 capsule by mouth 2 (two) times a day 10/29/2016 Active tiZANidine (ZANAFLEX) 2 MG capsule Take 1 capsule by mouth 1 (one) time each day Active topiramate (TOPAMAX) 50 MG tablet Take 1 tablet by mouth 2 (two) times a day Active traZODone (DESYREL) 100 MG tablet Take 1 tablet by mouth 1 (one) time each day Active furosemide (LASIX) 40 MG tablet TOME ALMA TABLETA DOS VECES AL REBEL 180 tablet 1 06/24/2021 Active Lantus SoloStar 100 UNIT/ML injection Inject 40 Units under the skin 1 (one) time each day 06/24/2021 Active HumaLOG KWIKPEN 100 UNIT/ML solution pen-injector INJECT 10 16 UNITS 3 TIMES A DAY PER SLIDING SCALE BEFORE MEALS 06/28/2021 Active Diclofenac Sodium 1 % gel 09/26/2021 Acti ve triamcinolone (KENALOG) 0.5 % cream 07/23/2021 Active mometasone (ELOCON) 0.1 % cream 09/20/2021 Active gabapentin (NEURONTIN) 100 MG capsule Take 1 capsule by mouth if needed 12/12/2022 Active B Complex Vitamins (VITAMIN B COMPLEX PO) Take 1 tablet by mouth 1 (one) time each day 11/06/2022 Active Active Problems Problem Noted Date Diagnosed Date Bilateral inguinal hernia 06/05/20232022 Carotid artery stenosis 06/05/2023 06/05/20 23 Chronic back pain 06/05/2023 06/05/2023 Edema of foot 06/05/2023 06/05/2023 Hiatal hernia 06/05/2023 06/05/2023 Hyperlipidemia 06/05/2023 06/05/2023 Lumbar radiculopathy 06/05/2023 06/05/2023 Lumbosacral spondylosis without myelopathy 06/0506/05/2023 Neuropathy due to diabetes mellitus 06/05/2023 06/05/2023 Obesity 06/05/2023 06/05/2023 Overview (06/05/2023): Initial Weight 03/22/16 - 243.2 Lbs. Obstructive sleep apnea syndrome 06/05/2023 06/05/2023 Peptic ulcer 06/05/2023 06/05/2023 Overview (06/05/2023): UGI bleed 1979 Restless legs 06/05/2023 06/05/2023 Tenosynovitis of fingers 06/05/2023 023 Tinnitus 06/05/2023 06/05/2023 Type 2 diabetes mellitus 06/05/2023 023 Ulnar neuropathy 06/05/2023 06/05/2023 Hypercalcemia 09/01/2022 Hypertension 03/30/2021 Benign essential hypertension 12/31/2020 Chronic kidney disease stage 2 12/31/2020 Edema 12/31/2020 Proteinuria 12/31/2020 Renal disorder due to type 2 diabetes mellitus 0 12/31/2020 Stage 3a chronic kidney disease 12/31/2020 Immunizations Name Administration Dates Next Due Hepatitis A 08/05/2010,02/10/2010,08/03/2009 Hepatitis B 08/05/2010,06/03/2010,02/10/2010 Pfizer SARS-COV-2 02/24/2022,08/29/2021,01/22/20 21,12/31/2020 Pneumococcal Conjugate 13-Valent 01/09/2015 Pneumococcal Polysaccharide 08/20/2019, 3,09/15/1995 Shingrix 05/04/2021,02/24/2021 Td, Unspecified 02/28/2023,08/16/2004,08/16/1994 Tdap 08/16/2013 Zoster 11/19/2013 Family History Medical History Relation Comments Diabetes Father Heart disease Father Hypertension Father Stroke Father Cancer Mother Diabetes Sibling 1 Hypertension Sibling 2 Relation Status Comments Father Mother Sibling 1 Sibling 2 Social History Tobacco Use Types Packs/Day Years Used Date Smoking Tobacco: Never Smokeless Tobacco: Never Tobacco Cessation:Counseling Given: Not Answered Alcohol Use Standard Drinks/Week Comments Yes 0 (1 standard drink = 0.6 oz pure alcohol) Alcoholic Drinks/day: Occasional social drink Sex and Gender Information Value Date Recorded Sex Assigned at Not on file Legal Sex Male 5:02 PM EST Gender Identity Not on file Sexual Orientation Not on file Last Filed Vital Signs Vital Sign Reading Time Taken Comments Blood Pressure 136/60 06/05/2023 2:30 PM EDT Pulse 55 06/05/2023 2:30 PM EDT Temperature - - Respiratory Rate - - Oxygen Saturation 94% 10/11/2022 1:24 PM EST Inhaled Oxygen Concentration - - Weight 85.1 kg (187 lb 9.6 oz) 06/05/2023 2:30 P M EDT Height 175.3 cm (5' 9 ) 09/21/2020 12:00 PM EST Body Mass Index 27.7 09/21/2020 12:00 PM EST Plan of Treatment Health Maintenance Due Date Last Done Comments Colorectal Cancer Screening: Annual FOBT 2001 Colorectal Cancer Screening: Colonoscopy 2001 Colorectal Cancer Screening: Sigmoidoscopy 2001 Diabetes: Hemoglobin A1C 11/16/2020 Diabetes: Ophthalmology Exam 11/16/2020 Diabetes: Pedal Pulse Checked 11/16/2020 Diabetes: Sensory Foot Exam 11/16/2020 Diabetes: Visual Foot Exam 11/16/2020 Influenza Vaccine (#1) 2024 Hepatitis B Vaccine Aged Out 08/05/2010, 06/03/2010, 02/10/2010 No longer eligible based on patient's age to complete this topic Pneumococcal Vaccine: 65+ Years Completed 08/20/2019, 01/09/2015, 08/16/2003, Additional history exists Insurance [employer] Care Teams Digital Sales Executive Relationship Specialty Start Date End Date Flakito Reyes MD [address] [place] [address] PCP - General 10/26/20
[2024-11-14 17:36] LABS: MANUAL DIFF FLAG NO
[2024-11-14 17:53] LABS: Basophils Percent Auto 0.3 % (0-2); Eosinophils Absolute Auto 0.1 X10*3/uL (0.0-0.4); Hematocrit 32.2 % (42.0-52.0); Hemoglobin 10.5 g/dl (14.0-18.0); Imm Gran Abs Auto 0.03 X10*3/uL (0.00-0.03); Imm Gran Pct Auto 0.5 % (0.0-0.4); Lymphocytes Absolute Auto 1.4 X10*3/uL (1.2-4.9); Lymphocytes Percent Auto 24.3 % (20-40); Mean Corpuscular HGB Conc 32.6 g/dl (31.0-36.0); Mean Corpuscular Hemoglobin 30.4 pg (27.0-33.0); Mean Corpuscular Volume 93.3 fL (80.0-98.0); Mean Platelet Volume 10.7 fL (9.4-12.4); Monocytes Absolute Auto 0.5 X10*3/uL (0.1-1.2); Monocytes Percent Auto 8.3 % (2-11); Neutrophils Absolute Auto 3.8 x10*3/uL (2.0-8.3); Neutrophils Percent Auto 64.6 % (45-73); Platelet Count 191 X10*3/uL (160-400); Red Blood Count 3.45 X10*6/uL (4.60-5.80); Red Cell Distribution Width 13.8 % (11.0-16.0); White Blood Count 5.9 X10*3/uL (4.8-10.8)
[2024-11-14 17:59] LABS: Anion Gap 12 (12-20); Blood Urea Nitrogen 49 mg/dL (9-16); Calcium 9.8 mg/dL (8.4-10.2); Carbon Dioxide 25 mmol/L (22-29); Chloride 105 mmol/L (96-108); Estimated Glomerular Filt Rate 20; Phosphorus 3.6 mg/dL (2.7-4.5); Sodium 138 mmol/L (135-145)
[2024-11-14 18:09] LABS: Parathyroid Hormone Intact 444.1 pg/mL (8.7-77.1)
[2024-11-14 18:15] LABS: Creatinine Urine 63.38 mg/dL; Protein/Creatinine Ratio, Ur 3.09 (<0.2); Total Protein Urine Random 196 mg/dL (<12)
[2024-11-14 18:19] LABS: Vitamin D 25-OH Total 43.9 ng/mL (>30)
== END 2024-11-14 10:49 | disposition home or self-care (01) ==
LOC: HO.HKASLDS 10:48
PROVIDERS: Visit Provider Internal Medicine Nephrology
DX: E11.22 Type 2 diabetes mellitus with diabetic chronic kidney disease (principal); N18.4 Chronic kidney disease, stage 4 (severe); I10 Essential (primary) hypertension; N25.81 Secondary hyperparathyroidism of renal origin
CPT/HCPCS: 36415; 80051; 82306; 82310; 82565; 82570; 83970; 84100; 84156; 84520; 85025

== ENCOUNTER 2024-11-19 14:15 | Outpatient (AMB) | payer OTHER, SELFPAY ==
--- NOTE | 2024-11-19 14:16 | HO.NEPHOV_ITS ---
Vital Signs 11/19/24 14:48 Height 5 ft 7 in Weight 195 lb 8 oz BMI 30.6 BP 150/70 H Blood Pressure Location Lt brachial Position Sitting Pulse 57 Pulse Source Pulse Oximeter Pulse Oximetry (%) 98 Oxygen Delivery Method Room Air Intake Visit Reasons: CKD-LVM Video Production Coordinator Required: No Accompanied by: Spouse Allergies NSAIDS (Non-Steroidal Anti-Inflamma Allergy (Verified 11/19/24 14:48) Unknown Penicillins Allergy (Verified 11/19/24 14:48) Rash acetaminophen [From Percocet] Adverse Reaction (Verified 11/19/24 14:48) Anxiety diazepam [From Valium] Adverse Reaction (Verified 11/19/24 14:48) Swelling oxycodone [From Percocet] Adverse Reaction (Verified 11/19/24 14:48) Anxiety risperidone [From Risperdal] Adverse Reaction (Verified 11/19/24 14:48) Unknown spironolactone Adverse Reaction (Verified 11/19/24 14:48) Unknown HPI Comments Details: Rogers was seen in follow-up for his chronic kidney disease. 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 He was taking nonsteroidal anti-inflammatories in the past which has been discontinued. He has no hypoglycemia. He had congestive heart failure in January of 2024. Echocardiogram done at that time showed hyperdynamic LV systolic function with no significant regional wall motion abnormality, indeterminate LV diastolic dysfunction due to atrial fibrillation, normal RV systolic function and size with biatrial enlargement. He denies any chest pain, nausea, vomiting, diarrhea. His weight is stable. He is compliant with his medications and low-sodium diet. His blood sugars have been labile. [facility] Medical History (Updated 09/05/24 @ 12:59 by Brian Castano MD) Varicose vein of leg Ulnar neuropathy Restless leg syndrome Obesity Peptic ulcer disease Pedal edema Osteoarthritis HOLLIS (obstructive sleep apnea) New onset tinnitus of right ear Lumbosacral spondylolysis Lumbar radiculopathy Hypertension Hyperlipidemia Hiatal hernia Flexor tenosynovitis of finger Erectile dysfunction Drug-induced gynecomastia Diastasis recti Diabetic neuropathy Diabetes mellitus, type II Coronary artery disease Chronic kidney disease, stage 3a Chronic back pain Carpal tunnel syndrome Carotid artery stenosis Bilateral inguinal hernia Angle-closure glaucoma Surgical History History of coronary artery stent placement Social History Alcohol intake: never Patient Tobacco Use Status: Never used Tobacco Review of Systems Const All systems reviewed & are unremarkable except as noted in HPI and below Physical Exam Vital Signs: Last Vital Signs Pulse 57 11/19/24 14:48 BP 150/70 H 11/19/24 14:48 Pulse Ox 98 11/19/24 14:48 Oxygen Delivery Method Room Air 11/19/24 14:48 BMI result Body Mass Index 30.6 Const General: comfortable and no acute distress Orientation/consciousness: patient oriented x3 HEENT Head: Yes normocephalic Mouth: Normal oral and palatal mucosa present Eyes EOM: EOMs intact bilaterally Neck Neck: Yes supple Resp Auscultation: clear to auscultation bilaterally Cardio Jugular venous distension: no JVD Rate: regular rate GI Palpation (GI): Soft to palpation Auscultation: normal bowel sounds General: Yes no CVA tenderness Back/Spine/Pelvis Back: no CVA tenderness Skin General skin exam: no rashes or lesions noted Neuro General: patient oriented x3 and moves all extremities Results Reviewed Nephrology Results: Hgb 10.5 g/dl (14.0-18.0) L 11/14/24 WBC 5.9 X10*3/uL (4.8-10.8) 11/14/24 Plt Count 191 X10*3/uL (160-400) 11/14/24 Sodium 138 mmol/L (135-145) 11/14/24 Potassium 4.0 mmol/L (3.3-5.1) 11/14/24 Chloride 105 mmol/L (96-108) 11/14/24 Carbon Dioxide 25 mmol/L (22-29) 11/14/24 BUN 49 mg/dL (9-16) H 11/14/24 Creatinine 3.04 mg/dL (0.5-1.4) H 11/14/24 Calcium 9.8 mg/dL (8.4-10.2) 11/14/24 Phosphorus 3.6 mg/dL (2.7-4.5) 11/14/24 PTH Intact 444.1 pg/mL (8.7-77.1) H 11/14/24 Urine Creatinine 63.38 mg/dL 11/14/24 Protein/Creatinin Ratio 3.09 (<0.2) H 11/14/24 Assessment & Plan Assessment & Plan (1) CKD stage 4 due to type 2 diabetes mellitus: Code(s): E11.22 - Type 2 diabetes mellitus with diabetic chronic kidney disease; N18.4 - Chronic kidney disease, stage 4 (severe) Category: Medical (2) Hypertension: Code(s): I10 - Essential (primary) hypertension Category: Medical Qualifiers: Hypertension type: primary hypertension Qualified Code(s): I10 - Essential (primary) hypertension (3) Secondary hyperparathyroidism of renal origin: Code(s): N25.81 - Secondary hyperparathyroidism of renal origin Category: Medical (4) Hyperuricemia: Code(s): E79.0 - Hyperuricemia without signs of inflammatory arthritis and tophaceous disease Category: Medical Plan Rogers has diabetic nephropathy. He has history of AMANDA needing one treatment with hemodialysis. He has been having edema. He has proteinuria and is on Nifedipine. He is on torsemide 60 mg twice daily. His blood pressure has been fluctuant. He keeps up with his CPAP. Sestamibi scan was done in the past which showed parathyroid adenoma and has seen by [facility]. He also has history of carotid stenosis and hyperuricemia. He can continue Allopurinol 100 mg daily . I D/Remington his metformin and increased his Jardiance to 25 mg daily. He should continue low-sodium diet and weigh himself daily. He should avoid nonsteroidal anti-inflammatories. All these have been explained in detail to him and his . Follow-up appointment given Orders: Orders Calcium 1 Month E11.22 - Type 2 diabetes mellitus with diabetic chronic kidney disease, I10 - Essential (primary) hypertension, N18.4 - Chronic kidney disease, stage 4 (severe) Creatinine 1 Month E11.22 - Type 2 diabetes mellitus with diabetic chronic kidney disease, I10 - Essential (primary) hypertension, N18.4 - Chronic kidney disease, stage 4 (severe) Blood Urea Nitrogen 1 Month E11.22 - Type 2 diabetes mellitus with diabetic chronic kidney disease, I10 - Essential (primary) hypertension, N18.4 - Chronic kidney disease, stage 4 (severe) Electrolytes 1 Month E11.22 - Type 2 diabetes mellitus with diabetic chronic kidney disease, I10 - Essential (primary) hypertension, N18.4 - Chronic kidney disease, stage 4 (severe) Magnesium 1 Month E11.22 - Type 2 diabetes mellitus with diabetic chronic kidney disease, I10 - Essential (primary) hypertension, N18.4 - Chronic kidney disease, stage 4 (severe) Medications: Changed From empagliflozin (Jardiance) 10 mg PO DAILY 30 tabs 4RF To empagliflozin 10 mg (0.4 x 25 mg) PO DAILY 30 tabs 6RF Coding Level of Care Code Est Pt Level 4 (77380) Diagnoses CKD stage 4 due to type 2 diabetes mellitus E11.22; N18.4 Primary hypertension I10 Hypertension type: primary hypertension Secondary hyperparathyroidism of renal origin N25.81 Hyperuricemia E79.0
--- OUTSIDE RECORDS SUMMARY | 2024-11-19 14:22 | XMS_ITS | Encounter Summary ---
Author Organization [facility] Address [address] [place] [address] Care Team Providers Care Wood Cabinetmaker Name Role Phone Flakito Reyes MD Primary Care Provider [phone] Reason for Referral * Imaging (Routine) - Pending Review Specialty Diagnoses / Procedures Referred By Mirian schwartz Referred To Contact Cardiology Diagnoses Heart murmur Procedures Transthoracic echocardiogram (TTE) complete with PRN contrast, bubble, strain, and 3D order panel OH TTE W 2D IMAGE COMPLETE W DOPPLER ECHO & COLOR FLOW DOPPLER ECHO OH RICK 2D COMPLETE W/CONTRAST OR W & WO CONTRAST WITH DOPPLER Mar Joens NP [address] [address] [facility] Referral ID Status Reason Start Date Expiration Date V isits Requested Visits Authorized [id number] Pending Review 11/18/2024 11/18/2025 1 1 Reason for Visit * Reason Comments Follow-up * Other Medical (Routine) - Authorized Specialty Diagnoses / Procedures Referred By Mirian schwartz Referred To Contact Cardiology Diagnoses [HFU/Pre Op Dx:cath f/u,Lap? Open Interval Appendectomy,poss bowel resecction, cath done on 07/04/24 w/ cam at [facility], d/c 07/04/24, cr/jm pt]; 07/16/24 Surgery date TBD by Dr. Tarango at [facility], per Ramos Vicente; 07/11/24 spoke w/ pt, appt ltr sent. Walker; 05-06-24 Spoke to daughter sent letter -[facility] FOLLOW UP Flakito Reyes MD [address] [place] [address] Sachin Dial MD [address] [place] [address] Referral ID Status Reason Start Date Expiration Date V isits Requested Visits Authorized [id number] Authorized 01/25/2024 01/23/2025 3 3 Encounter Details Date Type Department Care Team (Late st Contact Info) Description 11/18/2024 8:40 AM EST Office Visit [facility] [address] [place] [address] Mar Jones NP [address] [place] [address] Heart murmur (Primary Dx); Acute on chronic heart failure with preserved ejection fraction (CMS/HCC); Atrial fibrillation, unspecified type (CMS/HCC); Other hyperlipidemia; Coronary artery disease of [place] artery of [place] heart with stable angina pectoris (CMS/HCC) Social History Tobacco Use Types Packs/Day Years [...] on file documented as of this encounter Last Filed Vital Signs Vital Sign Reading Time Taken Comments Blood Pressure 148/62 11/18/2024 8:46 AM EST Pulse 72 11/18/2024 8:46 AM EST Temperature - - Respiratory Rate - - Oxygen Saturation 95% 11/18/2024 8:46 AM EST Inhaled Oxygen Concentration - - Weight 91.2 kg (201 lb) 11/18/2024 8:46 AM EST Height 170.2 cm (5' 7 ) 11/18/2024 8:46 AM EST Body Mass Index 31.48 11/18/2024 8:46 AM EST documented in this encounter Progress Notes * Mar Jones NP - 11/18/2024 8:40 AM ESTAssociated Problem(s): (HFpEF) heart failure with preserved ejection fraction (CMS/HCC) Euvolemic upon exam today. He does endorse marked improvement in his swelling on his current dose of diuretic therapy. Encouraged to continue to follow a low- sodium diet and perform daily weights. Patient will reach out to our office with a weight gain of 2 pounds in 1 day or 5 pounds in 5 days accompanied by worsening peripheral edema, shortness of breath or abdominal distention. He will continue on his current medications including carvedilol, Jardiance, torsemide and spironolactone. * Mar Jones NP - 11/18/2024 8:40 AM ESTAssociated Problem(s): Atrial fibrillation (CMS/HCC) Patient denies perception of recurrence of arrhythmia. [...] understands these risks and agrees to continue. * Mar Jones NP - 11/18/2024 8:40 AM ESTAssociated Problem(s): HLD (hyperlipidemia) Last fasting lipid profile revealed an LDL of 50. This is at goal of less than 70 in the setting ofcoronary artery disease. His triglycerides were elevated at greater than 200. We talked about diet exercise and being mindful of his dietary fat intake. At this time he will continue on his current dose of Lipitor 80 mg. * Mar Jones NP - 11/18/2024 8:40 AM ESTAssociated Problem(s): Coronary artery disease of [place] artery of [place] heart with stable angina p ectoris (CMS/HCC) He denies any recurrence of any anginal symptoms since increasing his isosorbide during our last visit. He will continue on Aspirin, statin and beta-terence therapy as well as his current dose of nifedipine and isosorbide. Instructed to call 911 or go to the emergency room should the patient begin to experience chest pain or pressure lasting greater than 10 minutes does not resolve with rest. documented in this encounter Plan of Treatment Upcoming Encounters Date Type Department Care Team (Late st Contact Info) Description 12/17/2024 2:30 PM EST Office Visit General Surgery - [place] [address] [place] [address] Shirley Tarango MD [address] [place] [address] 01/23/2025 2:30 PM EDT Ancillary Procedure [facility] [address] [place] [address] 04/01/2025 3:30 PM EDT Office Visit [facility] [address] [place] [address] Sachin Dial MD [address] [place] [address] Scheduled Orders Name Type Priority Associated Diagnoses Order Schedule Transthoracic echocardiogram (TTE) complete with PRN contrast, bubble, strain, and 3D order panel Echocardiography Routine Heart murmur 1 Occurrences starting 11/18/2024 until 11/18/2025 documented as of this encounter Visit Diagnoses Diagnosis Heart murmur- Primary Undiagnosed cardiac murmurs Acute on chronic heart failure with preserved ejection fraction (CMS/HCC) Atrial fibrillation, unspecified type (CMS/HCC) Other hyperlipidemia Coronary artery disease of [place] artery of [place] heart with stable angina pectoris (CMS/HCC) documented in this encounter Historical Medications * This list may reflect changes made after this encounter. Medication Sig Dispensed Refills Start Date End Date atorvastatin (LIPITOR) 80 mg tablet Take 1 tablet (80 mg total) by mouth at bedtime. added in this encounter Care Teams Wood Cabinetmaker Relationship Specialty Start Date End Date Flakito Reyes MD [address] [place] [address] PCP - General 01/03/24 documented as of this encounter
--- OUTSIDE RECORDS SUMMARY | 2024-11-19 14:22 | XMS_ITS | Encounter Summary ---
Author Organization [facility] Address [address] [place] [address] Care Team Providers Care Paint Maker Name Role Phone Flakito Reyes MD Primary Care Provider + [phone] Reason for Visit * Reason Onset Date Comments Follow Up Appointment 11/19/2024 Encounter Details Date Type Department Care Team ([facility] st Contact Info) Description 11/19/[address] [facility] 175 [facility] [address] [place] [address] Kehinde Bryan MA Follow Up Appointment Social History Tobacco Use Types Packs/Day Years [...] as of this encounter Progress Notes * Kehinde Bryan MA - 11/19/2024 10:02 AM EST Pt's daughter returned call and appointment were scheduled for 12/17/2024 at 2:[address] Shirley Tarango. * Kehinde Bryan MA - 11/19/2024 9:31 AM EST Called Pt's daughter and left a vm to call us back to schedule a follow up with Dr. Shirley Ritter. Last time were seen was almost a year ago. documented in this encounter Plan of Treatment Upcoming Encounters Date Type Department Care Team (Late st Contact Info) Description 12/17/2024 2:30 PM EST Office Visit General Surgery - [place] 175 [facility] 110 [place] [address] Shirley Tarango MD 175 [facility] 110 [place] [address] 01/23/2025 2:30 PM EDT Ancillary Procedure [facility] Cardiology [facility] - [facility] 101 300 [facility] 101 [place] [address] 04/01/2025 3:30 PM EDT Office Visit [facility] - [facility] 154 300 [facility] 154 [place] [address] Sachin Dial MD 300 [facility] [address] [place] [address] documented as of this encounter Visit Diagnoses Not on filedocumented in this encounter Care Teams Paint Maker Relationship Specialty Start Date End Date Flakito Reyes MD [address] [place] [id number] PCP - General 01/03/24 documented as of this encounter
--- OUTSIDE RECORDS SUMMARY | 2024-11-19 14:23 | XMS_ITS | Clinical Summary ---
Author Organization [address] [place] [address] [place] [address] Phone Care Team Providers Care Hand Scudder Name Role Phone Flakito Reyes MD Primary Care Provider [phone] Allergies Active Allergy Reactions Criticality Noted Date [...] or chew. 30 each 09/05/2024 09/05/2025 Active atorvastatin (LIPITOR) 80 mg tablet Take 1 tablet (80 mg total) by mouth at bedtime. Active Active Problems Problem Noted Date Diagnosed Date Coronary artery disease of n ative artery of [place] heart with stable angina pectoris 09/05/2024 Assessment & Plan (11/18/2024 9:11 AM EST): He denies any recurrence of any anginal [...] 10 minutes does not resolve with rest. Assessment & Plan (09/05/2024 4:04 PM EST): [...] ejection fr action 02/12/2024 Assessment & Plan (11/18/2024 9:11 AM EST): Euvolemic upon exam today. He does endorse marked improvement in his swelling on his current dose of diuretic therapy. Encouraged to continue to follow a low-sodium diet and perform daily weights. Patient will reach out to our office with a weight gain of 2 pounds in 1 day or 5 pounds in 5 days accompanied by worsening peripheral edema, shortness of breath or abdominal distention. He will continue on his current medications including carvedilol, Jardiance, torsemide and spironolactone. Assessment & Plan (09/05/2024 4:04 PM EST): Patient does appear to be mildly volume overloaded during today's exam. We did discuss the potential of increasing his torsemide temporarily. 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 [...] understands these risks and agrees to continue. Assessment & Plan (11/18/2024 9:11 AM EST): Patient denies perception of recurrence of arrhythmia. [...] rest. HLD (hyperlipidemia) 01/25/2024 Assessment & Plan (11/18/2024 9:11 AM EST): Last fasting lipid profile revealed an LDL of 50. This is at goal of less than 70 in the setting of coronary artery disease. His triglycerides were elevated at greater than 200. We talked about diet exercise and being mindful of his dietary fat intake. At this time he will continue on his current dose of Lipitor 80 mg. Assessment & Plan (09/05/2024 4:04 PM EST): [...] Encounters Date Type Department Care Team Description 11/19/2024 Telephone General Surgery [address] [place] [phone] Kehinde Bryan MA Follow Up Appointment 11/18/2024 8:40 AM EST Office Visit [facility] [address] [place] [address] Mar Jones NP Heart murmur (Primary Dx); Acute on chronic heart failure with preserved ejection fraction (CMS/HCC); Atrial fibrillation, unspecified type (CMS/HCC); Other hyperlipidemia; Coronary artery disease of [place] artery of [place] heart with stable angina pectoris (CMS/HCC) 10/11/2024 Telephone [facility] [address] [place] [address] Saúl Smith MA Results (Carotid duplex results) 09/23/2024 10:30 AM EST Ancillary Procedure [facility] - [address] [place] [address] Coronary artery disease due to lipid rich plaque; Hyperlipidemia, unspecified hyperlipidemia type; Bruit of right carotid artery 09/05/2024 3:10 PM EST Office Visit [facility] - [address] [place] [address] Mar Jones NP Heart failure with preserved ejection fraction, unspecified HF chronicity (CMS/HCC) (Primary Dx); Coronary artery disease due to lipid rich plaque; Hyperlipidemia, unspecified hyperlipidemia type; Bruit of right carotid artery; Hypertension, unspecified type; Coronary artery disease of [place] artery of [place] heart with stable angina pectoris (CMS/HCC) from Last 3 Months Surgical History Surgery Date Site/Laterality Comments CARDIAC CATHETERIZATION DONE ON 07/04/2024 AT [facility] INDICATIONS:ABNORMAL STRESS TEST Medical History Medical History [...] Mass Index 31.48 11/18/2024 8:46 AM EST Plan of Treatment Upcoming Encounters Date Type Department Care Team (Late st Contact Info) Description 12/17/2024 2:30 PM EST Office Visit General Surgery - [place] 175 [facility] 110 [place] [address] Shirley Tarango MD 175 [facility] 110 [place] [address] 01/23/2025 2:30 PM EDT Ancillary Procedure [facility] - [facility] 101 300 [facility] 101 [place] [address] 04/01/2025 3:30 PM EDT Office Visit [facility] - [facility] 154 300 [facility] 154 [place] [address] Sachin Dial MD 300 [facility] 154 [place] [address] Health Maintenance Due Date Last Done Comments [...] to direct LDL (10/14/2024 9:58 AM EST) Cholesterol 128 0 - 200 mg/dL LAB CHEMISTRY METHOD 10/14/2024 4:[address] [facility] Triglycerides 208(H) 0 - 150 mg/dL LAB CHEMISTRY METHOD 10/14/2024 4:[address] [facility] HDL 36(L) >=40 mg/dL LAB CHEMISTRY METHOD 10/14/2024 4:[address] [facility] LDL Calculated 50 0 - 100 mg/dL LAB CHEMISTRY METHOD 10/14/2024 4:[address] [facility] VLDL Cholesterol Jj 41.6 mg/dL LAB CHEMISTRY METHOD 10/14/2024 4:[address] [facility] Non HDL Chol. (LDL+VLDL) 92 <145 mg/dL LAB CHEMISTRY METHOD 10/14/2024 4:[address] [facility] Chol/HDL Ratio 3.6 0.0 - 4.4 LAB CHEMISTRY METHOD 10/14/2024 4:26 PM EST [facility] Blood Venous blood specimen / Unknown Venipuncture / Unknown 10/14/2024 9:58 AM EST 10/14/2024 9:58 AM EST Mar Promisejean Jones QUALITY CONTROL EXPERT LAB BLOOD Y[facility]I [facility] ([facility] [address] [place] [address], [place] [phone] * Vascular US duplex carotid bilateral (09/23/2024 [...] plaque. The vertebral artery flow is retrograde. Emergency Response Technician Details A rivas scale, color and doppler analysis ultrasound was performed. During the study longitudinal and transverse views were obtained. Pulsed wave doppler was performed. Overall the study quality was adequate. Mar Jones NP CV VASCULAR SC OCEDURES * ECG 12 lead (09/05/2024 3:59 PM EST) Ventricular Rate ECG 60 BPM GEMUSE Atrial Rate 60 BPM GEMUSE P-R Interval 278 ms GEMUSE QRS Duration 96 ms GEMUSE Q-T Interval 418 ms GEMUSE QTc 418 ms GEMUSE P Wave Barney 49 degrees GEMUSE R Barney 43 degrees GEMUSE T Barney 69 degrees GEMUSE ECG Interpretation Sinus rhythm with 1st degree A-V block Poor R wave progression When compared with ECG of 04-JUL-2024 08:38, Premature ventricular complexes is no longer present Confirmed by Millicent JACOBS, GO ([id number]) on 09/05/2024 4:38:57 PM GEMUSE 09/05/2024 3:21 PM EST 09/05/2024 4:38 PM EST Mar Jones QUALITY CONTROL EXPERT ECG ORDERABLES GEMUSE * Annual BMP Blood Test (07/08/2024) Annual BMP Blood Test abstracted Historical Provider MD ELIZABETH Yeung from Last 3 Months or Most Recently Relevant to Health Maintenance Care Teams Hand Scudder Relationship Specialty Start Date End Date Flakito Reyes MD [address] [place] [id number] PCP - General 01/03/24
--- OUTSIDE RECORDS SUMMARY | 2024-11-19 14:23 | XMS_ITS | Encounter Summary ---
Author Organization [facility] Address [address] [place] [address] Care Team Providers Care Seed Buyer Name Role Phone Flakito Reyes MD Primary Care Provider [phone] Reason for Visit * Reason Onset Date Comments Results 10/11/2024 Carotid duplex r esults Encounter Details Date Type Department Care Team (Late st Contact Info) Description 10/11/2024 Telephone [facility] - [facility] [address] [facility] 154 [place] [phone] Saúl Smith MA Results (Carotid duplex results) [...] Smith MA - 10/21/2024 10:35 AM EST Per Mar upon further review of pt's OV note from pcp pt is already on Atorvastatin 80 mg qd. I did check with pharmacy and he had it last filled in 09/2024. Per Mar no med adjustments at this time. Will continue to monitor. I will call at some point today to inform pt with ship propeller finisher. Thank you. * Saúl Smith MA - 10/17/2024 8:13 AM EST Lipid results in chart. Labs show a 208 triglycerides. Please advise. Thank you. * Saúl Smith MA - 10/11/2024 4:01 PM EST Spoke to pt with luxembourgish interpretor on the phone. Relayed message to pt from Mar Jones NP. Pt confirmed he did not have fasting cholesterol drawn he is aware that he needs to have this done [place] Monday per Mar. Pt agrees and will go to to [address] [place] [address] Monday. He is aware of U/S results as well. * Saúl Smith MA - 10/11/2024 4:01 PM EST ----- Message from Kimo Jones NP sent at 10/11/2024 3:58 PM EST ----- [...] PM EST Office Visit General Surgery - [place] 175 [facility] [address] [place] [phone] Shirley Tarango MD 175 [facility] [address] [place] [address] 01/23/2025 2:30 PM EDT Ancillary Procedure [facility] - [address] [facility] [address] [place] [address] 04/01/2025 3:30 PM EDT Office Visit [facility] - [facility] [address] [facility] 154 [place] [address] Sachin Dial MD 300 [facility] 154 [place] [address] documented as of this encounter Results * [...] EST 10/14/2024 9:58 AM EST Mar Jones EDUCATION REP LAB BLOOD YENI MEANS [facility] [address] [place] [address], documented in this encounter Visit Diagnoses Diagnosis Coronary artery disease due to lipid rich plaque- Primary documented in this encounter Care Teams Seed Buyer Relationship Specialty Start Date End Date Flakito Reyes MD [address] [place] [address] PCP - General 01/03/24 documented as of this encounter
--- OUTSIDE RECORDS SUMMARY | 2024-11-19 14:23 | XMS_ITS | Clinical Summary ---
Author Organization [facility] Address [address] [facility] 20 0 [place] [address] Phone Care Team Providers Care Explosives Operator Name Role Phone Flakito Reyes MD Primary Care Provider [phone] Allergies Active Allergy Reactions Criticality Noted Date [...] HEALTH MEDICARE [facility] Care Teams Explosives Operator Relationship Specialty Start Date End Date Flakito Reyes MD [address] [place] [address] PCP - General 10/26/20
[2024-11-19 14:48] VITALS: BP 150/70; PULSE 57; O2SAT 98; BMI 30.6
== END 2024-11-19 15:09 | disposition home or self-care (01) ==
PROVIDERS: PCP Internal Medicine; Visit Provider Internal Medicine Nephrology
DX: E11.22 Type 2 diabetes mellitus with diabetic chronic kidney disease (principal); N18.4 Chronic kidney disease, stage 4 (severe); I12.9 Hypertensive chronic kidney disease with stage 1 through stage 4 chronic kidney disease, or unspecified chronic kidney disease; N25.81 Secondary hyperparathyroidism of renal origin; E79.0 Hyperuricemia without signs of inflammatory arthritis and tophaceous disease
CPT/HCPCS: 99214

== ENCOUNTER → 2024-11-19 14:15 | Outpatient (BNVA) | payer OTHER, SELFPAY | PROVIDERS: PCP Internal Medicine; Visit Provider Internal Medicine Nephrology | DX: E11.22 Type 2 diabetes mellitus with diabetic chronic kidney disease (principal); E11.21 Type 2 diabetes mellitus with diabetic nephropathy; I12.9 Hypertensive chronic kidney disease with stage 1 through stage 4 chronic kidney disease, or unspecified chronic kidney disease; N18.4 Chronic kidney disease, stage 4 (severe); R80.9 Proteinuria, unspecified; N25.81 Secondary hyperparathyroidism of renal origin; E79.0 Hyperuricemia without signs of inflammatory arthritis and tophaceous disease | CPT/HCPCS: 99212 ==

== ENCOUNTER 2024-12-10 11:45 | Outpatient (REF) | payer OTHER, SELFPAY ==
--- OUTSIDE RECORDS SUMMARY | 2024-12-10 14:22 | XMS_ITS | Encounter Summary ---
Author Organization [facility] Address [address] [place] [address] Care Team Providers Care Wastewater Technician Name Role Phone Flakito Reyes MD Primary Care Provider + [phone] Reason for Visit * Reason Onset Date Comments Follow Up Appointment 11/19/2024 Encounter Details Date Type Department Care Team ([facility] st Contact Info) Description 11/19/2024 Telephone General Surgery [facility] 175 [facility] [address] [place] [address] Kehinde Bryan MA Follow Up Appointment Social History Tobacco Use Types Packs/Day Years Used Date Smoking Tobacco: Never Smokeless Tobacco: Never Alcohol Use Standard Drinks/Week Comments Never 0 (1 standard drink = 0.6 oz pur e alcohol) Sex and Gender Information Value Date Recorded Sex Assigned at Not on file Legal Sex Male 10:59 AM EST Gender Identity Not on file Sexual Orientation Not on file documented as of this [...] Care Team (Late st Contact Info) Description 01/07/2025 11:30 AM EDT Office Visit General Surgery - [place] 175 [facility] 110 [place] [address] Shirley Tarango MD 175 [facility] 110 [place] [address] 01/23/2025 2:30 PM EDT Ancillary Procedure [facility] Cardiology [facility] - [facility] 101 300 [facility] 101 [place] [address] 04/01/2025 3:30 PM EDT Office Visit [facility] [address] [facility] 154 [place] [address] Sachin Dial MD 300 [facility] [address] [place] [address] documented as of this encounter Visit Diagnoses Not on filedocumented in this encounter Care Teams Wastewater Technician Relationship Specialty Start Date End Date Flakito Reyes MD [address] [place] [address] PCP - General 01/03/24 documented as of this encounter
--- OUTSIDE RECORDS SUMMARY | 2024-12-10 14:23 | XMS_ITS | Encounter Summary ---
Author Organization [facility] Address [address] [place] [address] Care Team Providers Care Coat Finisher Name Role Phone Flakito Reyes MD Primary Care Provider + [phone] Reason for Referral * Imaging (Routine) - Pending Review Specialty Diagnoses / Procedures Referred By Mirian schwartz Referred To Contact Cardiology Diagnoses Heart murmur Procedures Transthoracic echocardiogram (TTE) complete with PRN contrast, bubble, strain, and 3D order panel TN TTE W 2D IMAGE COMPLETE W DOPPLER ECHO & COLOR FLOW DOPPLER ECHO TN RICK 2D COMPLETE W/CONTRAST OR W & WO CONTRAST WITH DOPPLER Mar Jones NP [address] [address] Phone: tel: fax: [facility] Referral ID Status Reason Start Date Expiration Date V isits Requested Visits Authorized [id number] Pending Review 11/18/2024 11/18/2025 1 1 Reason for Visit * Reason Comments Follow-up * Other Medical (Routine) - Authorized Specialty Diagnoses / Procedures Referred By Mirian schwartz Referred To Contact Cardiology Diagnoses [HFU/Pre Op Dx:cath f/u,Lap? Open Interval Appendectomy,poss bowel resecction, cath done on 07/04/24 w/ [facility], d/c 07/04/24, cr/jm pt]; 07/16/24 Surgery date TBD by Dr. Tarango at [facility], [facility]; 07/11/24 spoke w/ pt, appt ltr sent. Walker; 05-06-24 Spoke to daughter sent letter -[facility] FOLLOW UP Flakito Reyes MD [address] [place] [address] Phone: tel: fax: Sachin Dial MD Phone: tel: fax: Referral ID Status Reason Start Date Expiration Date V isits Requested Visits Authorized [id number] Authorized 01/25/2024 01/23/2025 3 3 Encounter Details Date Type Department Care Team (Late st Contact Info) Description 11/18/2024 8:40 AM EST Office Visit [facility] - [address] [place] [phone] Mar Jones NP [address] [place] [phone] Heart murmur (Primary Dx); Acute on chronic heart failure with preserved ejection fraction (CMS/HCC); Atrial fibrillation, unspecified type (CMS/HCC); Other hyperlipidemia; Coronary artery disease of kenaitze artery of kenaitze heart with stable angina pectoris (CMS/HCC) Social [...] AM ESTAssociated Problem(s): Coronary artery disease of kenaitze artery of kenaitze heart with stable angina p ectoris ([facility]) He denies any recurrence of any anginal [...] 10 minutes does not resolve with rest. * Mar Jones NP - 11/18/2024 8:40 AM EST Images from the original note were not included. [facility] PRIMARY BUSINESS CASE ANALYST: Sachin Dial MD PCP: Flakito Reyes MD HPI: [place] Keke aGrces is a 74 y.o. 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 Patient also has a history of septic shock due to acuterenal failure and was treated at [facility] in October 2023. He had rising troponins and had been empirically started on a heparin drip. Patient ended up being treated with IV Lasix and was released. December 25, 2017 patient presented to [facility] with progressive shortness of breath including orthopnea, PND and bilateral lower extremity edema. Echocardiogram performed during hospitalization revealed significantly elevated right-sided atrial pressures. Biatrial dilatation likely in the setting of chronic atrial fibrillation. Echocardiogram revealed hyperdynamic LV systolic function with an EF of greater than 70%. No regional wall motion abnormalities. Indeterminate LV diastolic function. Normal LV cavity size with increased LV wall thickness. RV normal in size and systolic function. Biatrial enlargement. Aortic sclerosis without stenosis. Dilated IVC with blunted respiratoryvariation suggestive of high right atrial pressures. He was diuresed with IV furosemide and responded relatively well during hospitalization. He was transition to p.o. torsemide and started on Aldactone prior to his discharge. Unfortunately the patient called at the beginning of the month with ongoing complaints of increased swelling and shortness of breath. Subsequently he was seen via a triage visit with Dr. Dial on January 24. At that office visit he was noted to be bradycardic with heart rates in the 40s. Subsequently his Coreg was reduced to 25 mg twice daily. His torsemide was increased to 60 mg twice daily with the plan for repeat BMP in a week Patient underwent cardiac catheterization in June 2024 having an abnormal stress test. This revealed minimal luminal irregularities of the left main coronary artery. Mild diffuse disease of the LAD. Mild diffuse disease of the left circumflex. 90% stenosis of the mid subsection of the mid RCA.70% stenosis in the distal subsegment of the mid RCA. During procedure his blood pressure was markedly elevated requiring IV hydralazine. It was recommended to better control patient's blood pressureand to consider PCI of the RCA lesions should his symptoms persist. He presents today for follow-up. accounts payable professional was used throughout the entirety of our officevisit today. Denies chest pain, pressure, shortness of breath, dyspnea exertion, dizziness, lightheadedness, presyncope or syncope. The patient denies palpitations, worsening peripheral edema, abdominal distention, PND or orthopnea. There have been no falls or cardiac related hospitalizations sincethe last office visit. He denies any complications of bleeding while being anticoagulated with Eliquis. ACTIVE MEDICATIONS: Outpatient Medications Marked as Taking for the 11/18/24 encounter (Office Visit) with Mar Jones NP Medication Sig Dispense Refill allopurinoL (ZYLOPRIM) 100 mg tablet Take 1 tablet (100 mg total) by mouth 1 (one) time each day. apixaban (ELIQUIS) 5 mg tablet Take 1 tablet (5 mg total) by mouth 2 (two) times a day. atorvastatin (LIPITOR) 80 mg tablet Take 1 tablet (80 mg total) by mouth at bedtime. carvediloL (COREG) 25 mg tablet Take 1 tablet (25 mg total) by mouth 2 (two) times a day with meals. cholecalciferol (VITAMIN D-3) 1,250 mcg (50,000 unit) capsule Take 1 capsule (50,000 Units total) by mouth. empagliflozin (Jardiance) 10 mg tablet Take 1 tablet (10 mg total) by mouth 1 (one) time each day in the morning. hydrALAZINE (APRESOLINE) 50 mg tablet Take 1 tablet (50 mg total) by mouth 3 (three) times a day. isosorbide mononitrate (IMDUR) 60 mg 24 hr tablet Take 1 tablet (60 mg total) by mouth 1 (one) timeeach day. Do not crush or chew. 30 each 11 NIFEdipine CC (ADALAT CC) 90 mg 24 hr tablet Take 1 tablet (90 mg total) by mouth 1 (one) time eachday. pantoprazole (PROTONIX) 40 mg EC tablet Take 1 tablet (40 mg total) by mouth 2 (two) times a day. potassium chloride (KLOR-CON M20) 20 mEq CR [...] TABLETAS (40MEQ) POR VIA ORAL A DIARIO spironolactone (ALDACTONE) 25 mg tablet Take 1 tablet (25 mg total) by mouth 1 (one) time each day. torsemide (DEMADEX) 20 mg tablet Take 3 tablets (60 mg total) by mouth 1 (one) time each day. vit B complx/folic acid/lysine (B COMPLEX VITAMINS PO) Take by mouth. PAST MEDICAL HISTORY: Patient Active Problem List Diagnosis (HFpEF) heart failure with preserved ejection fraction (CMS/HCC) Acute on chronic congestive heart failure with left ventricular diastolic dysfunction (CMS/HCC) Aortic valve sclerosis Atrial fibrillation (CMS/HCC) Chest pain HLD (hyperlipidemia) HTN (hypertension) Respiratory failure (CMS/HCC) SOB (shortness of breath) Coronary artery disease of kenaitze artery of kenaitze heart with stable angina pectoris (CMS/HCC) Bruit of right carotid artery ALLERGIES: Allergies Allergen Reactions Acetaminophen Diazepam Other valium Morphine Oxycodone Oxycodone-Acetaminophen Penicillins Risperidone SOCIAL HISTORY: Social History Tobacco Use Smoking status: Never Smokeless tobacco: Never Substance Use Topics Alcohol use: Never PHYSICAL EXAM: Vitals: 11/18/24 0846 BP: (!) 148/62 BP Location: Left arm Patient Position: Sitting BP Cuff Size: Adult Pulse: 72 SpO2: 95% Weight: 91.2 kg (201 lb) Height: 1.702 m (67 ) Physical Exam Constitutional: General: He is not in acute distress. HENT: Head: Normocephalic. Eyes: Pupils: Pupils are equal, round, and reactive to light. Cardiovascular: Rate and Rhythm: Normal rate and regular rhythm. Pulses: Normal pulses. Heart sounds: Murmur heard. Harsh midsystolic murmur is present with a grade of 3/6 at the upper right sternal border radiatingto the neck. No friction rub. No gallop. Pulmonary: Effort: Pulmonary effort is normal. No respiratory distress. Breath sounds: No wheezing, rhonchi or rales. Abdominal: General: Abdomen is flat. Bowel sounds are normal. There is no distension. Palpations: Abdomen is soft. Musculoskeletal: General: No swelling. Normal range of motion. Cervical back: Normal range of motion. Right lower leg: Edema present. Left lower leg: Edema present. Comments: Trace Bilateral ankle Skin: General: Skin is warm and dry. Neurological: Mental Status: He is alert and oriented to person, place, and time. Mental status is at baseline. Psychiatric: Mood and Affect: Mood normal. Thought Content: Thought content normal. EKG: Encounter Date: 09/05/24 ECG 12 lead Result Value Ventricular Rate ECG 60 Atrial Rate 60 P-R Interval 278 QRS Duration 96 Q-T Interval 418 QTc 418 P Wave Spring 49 R Spring 43 T Spring 69 ECG Interpretation Sinus rhythm with 1st degree A-V block Poor R wave progression When compared with ECG of 04-JUL-2024 08:38, Premature ventricular complexes is no longer present Confirmed by Millicent JACOBS YUFENG ([id number]) on 09/05/2024 4:38:57 PM *Note: Due to a large number of results and/or encounters for the requested time period, some results have not been displayed. A complete set of results can be found in Results Review. TESTING: ASSESSMENT/PLAN: Assessment & Plan Heart murmur Does not appear to be volume overloaded during exam today. We will update surveillance echocardiogram to further evaluate for progression of aortic stenosis. He denies chest pain, pressure or syncope. Orders: Transthoracic echocardiogram (TTE) complete with PRN contrast, bubble, strain, and 3D order panel; Future Acute on chronic heart failure with preserved [...] medications including carvedilol, Jardiance, torsemide and spironolactone. Atrial fibrillation, unspecified type (CMS/HCC) Patient denies perception of recurrence of [...] understands these risks and agrees to continue. Other hyperlipidemia Last fasting lipid profile revealed an LDL of 50. This is at goal of less than 70 in the setting ofcoronary artery disease. His triglycerides were elevated at greater than 200. We talked about diet exercise and being mindful of his dietary fat intake. At this time he will continue on his current dose of Lipitor 80 mg. Coronary artery disease of kenaitze artery of kenaitze heart with stable angina pectoris (CMS/HCC) He denies any recurrence of any [...] 10 minutes does not resolve with rest. Thank you for allowing us to participate in the care of this patient. The patient will follow up in4 months, sooner PRN. As per AHA guidelines and previously established plan of care by Dr. Sachin Dial MD, we discussed the following today: 1. Heart murmur 2. Acute on chronic heart failure with preserved ejection fraction (CMS/HCC) 3. Atrial fibrillation, unspecified type (CMS/HCC) 4. Other hyperlipidemia 5. Coronary artery disease of kenaitze artery of kenaitze heart with stable angina pectoris (CMS/HCC) [facility] Cosigned by Sachin Dial MD at 11/21/2024 1:22 PM EST documented in this encounter Plan of Treatment Upcoming Encounters Date Type Department Care Team (Late st Contact Info) Description 01/07/2025 11:30 AM EDT Office Visit General Surgery - [place] [address] [place] [phone] Shirley Tarango MD [address] [place] [address] 01/23/2025 2:30 PM EDT Ancillary Procedure [facility] - [address] [place] [address] 04/01/2025 3:30 PM EDT Office Visit [facility] - [address] [place] [phone] Sachin Dial MD [address] [place] [address] Scheduled Orders Name Type Priority Associated Diagnoses [...] (CMS/HCC) Other hyperlipidemia Coronary artery disease of kenaitze artery of kenaitze heart with stable angina pectoris (CMS/HCC) documented in this encounter Historical Medications * This list may reflect changes made after this encounter. atorvastatin (LIPITOR) 80 mg tablet Take 1 tablet (80 mg total) by mouth at bedtime. added in this encounter Care Teams Coat Finisher Relationship Specialty Start Date End Date Flakito Reyes MD [address] [place] [id number] PCP - General 01/03/24 documented as of this encounter
--- OUTSIDE RECORDS SUMMARY | 2024-12-10 14:23 | XMS_ITS | Clinical Summary ---
Author Organization [address] [place] [address] [place] [phone] Phone Care Team Providers Care Ball Thread Machine Tender Name Role Phone Flakito Reyes MD Primary Care Provider [phone] Allergies Active Allergy Reactions Criticality Noted Date Comments Acetaminophen 01/25/2024 Diazepam Other 12/12/2023 valium Morphine 12/12/2023 Oxycodone 01/25/2024 Oxycodone-Acetaminophen 12/12/2023 Penicillins 01/25/2024 Risperidone 01/25/2024 Medications apixaban (ELIQUIS) 5 mg tablet Take 1 tablet (5 mg total) by mouth 2 (two) times a day. 4 Active vit B complx/folic acid/lysine (B COMPLEX VITAMINS PO) Take by mouth. Activ e carvediloL (COREG) 25 mg tablet Take 1 tablet (25 mg total) by mouth 2 (two) times a day with meals. 4 Active cholecalciferol (VITAMIN D-3) 1,250 mcg (50,000 [...] by mouth 1 (one) time each day. 4 Active torsemide (DEMADEX) 20 mg tablet Take 3 tablets (60 mg total) by mouth 1 (one) time each day. 4 Active potassium chloride (KLOR-CON M20) 20 mEq [...] isosorbide mononitrate (IMDUR) 60 mg 24 hr tabletIndication s:Heart failure with preserved ejection fraction, unspecified HF chronicity (CMS/HCC),[place] ry artery disease due to lipid rich plaque Take 1 tablet (60 mg total) by mouth 1 (one) time each day. Do not crush or chew. 30 each 11 4 09/05/20 25 Active atorvastatin (LIPITOR) 80 mg tablet Take 1 tablet (80 mg total) by mouth at bedtime. 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 (CMS/HCC) 10/11/2024 Telephone [facility] [address] [place] [phone] Saúl Smith [place] Results (Carotid duplex results) 09/23/2024 10:30 AM EST Ancillary Procedure [facility] [address] [place] [phone] Coronary artery disease due to lipid rich plaque; Hyperlipidemia, unspecified hyperlipidemia type; Bruit of right carotid artery from Last 3 Months Surgical History Surgery Date Site/Laterality Comments CARDIAC CATHETERIZATION DONE ON 07/04/2024 AT [facility] INDICATIONS:ABNORMAL STRESS TEST Medical History Medical History Date Comments Acute on chronic congestive heart failure with left ventricular diastolic dysfunction (CMS/HCC) Atrial fibrillation (CMS/HCC) HTN (hypertension) Aortic valve sclerosis Heart failure with preserved ejection fraction ( CMS/HCC) HLD (hyperlipidemia) Chest pain SOB (shortness of breath) Hx of respiratory failure Family History Medical History Relation Name Comments CA Father Diabetes Other HLD Other Hypertension Other [...] on file Sexual Orientation Not on file Obstetrics History Last Filed [...] AM EDT Office Visit General Surgery - [place] [address] [facility] [address] [place] [address] Shirley Tarango MD [address] [facility] [address] [place] [address] 01/23/2025 2:30 PM EDT Ancillary Procedure [facility] - [facility] [address] [facility] [address] [place] [address] 04/01/2025 3:30 PM EDT Office Visit [facility] - [facility] [address] [facility] [address] [place] [address] Sachin Dial MD [address] [facility] [address] [place] [address] Health Maintenance Due Date Last Done Comments [...] Vaccines Completed 05/04/2021, 02/13, 11/19/2013 Pneumococcal Vaccine: 50+ Years Completed 02/22/2024, 08/20/2019, 01/09/2015, Additional history [...] patient's age to complete this topic Meningococcal B Vacine Aged Out No lo nger eligible based on patient's age to complete [...] hyperlipidemia type Bruit of right carotid artery ANNUAL BMP BLOOD TEST Routine 07/08/2024 from Last 3 Months or Most Recently Relevant to Health Maintenance Results * (ABNORMAL) Lipid panel with reflex to direct LDL (10/14/2024 9:58 AM EST) [facility] Signature Cholesterol 128 0 - 200 mg/dL LAB CHEMISTRY METHOD 10/14/2024 4:26 PM EST [facility] Triglycerides 208(H) 0 - 150 mg/dL LAB CHEMISTRY METHOD 10/14/2024 4:26 PM [facility] HDL 36(L) >=40 mg/dL LAB CHEMISTRY METHOD 10/14/2024 4:26 PM EST [facility] LDL Calculated 50 0 - 100 mg/dL LAB CHEMISTRY METHOD 10/14/2024 4:26 PM EST [facility] VLDL Cholesterol Jj 41.6 mg/dL LAB CHEMISTRY METHOD 10/14/2024 4:26 PM EST [facility] Non HDL Chol. (LDL+VLDL) 92 <145 mg/dL LAB CHEMISTRY METHOD 10/14/2024 4:26 PM EST [facility] Chol/HDL Ratio 3.6 0.0 - 4.4 LAB CHEMISTRY METHOD 10/14/2024 4:26 PM [facility] Blood Venous blood specimen / Unknown Venipuncture / Unknown 10/14/2024 9:58 AM EST 10/14/2024 9:58 AM EST us Mar Jones NP LAB BLOOD ORDERABLES F inal Result [facility] [address] [place] [address], * Vascular US duplex carotid bilateral (09/23/2024 [...] plaque. The vertebral artery flow is retrograde. Director Of Sales Support Details A rivas scale, color and doppler analysis ultrasound was performed. During the study longitudinal and transverse views were obtained. Pulsed wave doppler was performed. Overall the study quality was adequate. Mar Jones NP CV VASCULAR PROCEDURES Final Result * Annual BMP Blood Test (07/08/2024) Annual [facility] Blood Test abstracted Historical Provider HEALTH MAINTENANCE Final Result from Last 3 Months or Most Recently Relevant to Health Maintenance Insurance [employer] Care Teams Ball Thread Machine Tender Relationship Specialty Start Date End Date Flakito Reyes MD [address] [place] [id number] [facility] - General 01/03/24
--- OUTSIDE RECORDS SUMMARY | 2024-12-10 14:23 | XMS_ITS | Clinical Summary ---
Author Organization [facility] Address [address] [facility] [address] [place] [address] Phone Care Team Providers Care Secondary School Teacher Librarian Name Role Phone Flakito Reyes MD Primary Care Provider [phone] Allergies Active Allergy Reactions Criticality Noted Date [...] HEALTH MEDICARE [employer] Care Teams Secondary School Teacher Librarian Relationship Specialty Start Date End Date Flakito Reyes MD [address] [place] [address] PCP - General 10/26/20
[2024-12-10 18:06] LABS: MANUAL DIFF FLAG NO
[2024-12-10 18:14] LABS: Basophils Percent Auto 0.6 % (0-2); Eosinophils Absolute Auto 0.1 X10*3/uL (0.0-0.4); Eosinophils Percent Auto 2.6 % (0-4); Hemoglobin 10.8 g/dl (14.0-18.0); Imm Gran Abs Auto 0.01 X10*3/uL (0.00-0.03); Imm Gran Pct Auto 0.2 % (0.0-0.4); Lymphocytes Absolute Auto 1.6 X10*3/uL (1.2-4.9); Lymphocytes Percent Auto 29.1 % (20-40); Mean Corpuscular HGB Conc 32.7 g/dl (31.0-36.0); Mean Corpuscular Hemoglobin 30.8 pg (27.0-33.0); Mean Platelet Volume 10.8 fL (9.4-12.4); Monocytes Absolute Auto 0.5 X10*3/uL (0.1-1.2); Monocytes Percent Auto 8.8 % (2-11); Neutrophils Absolute Auto 3.2 x10*3/uL (2.0-8.3); Neutrophils Percent Auto 58.7 % (45-73); Platelet Count 192 X10*3/uL (160-400); Red Blood Count 3.51 X10*6/uL (4.60-5.80); Red Cell Distribution Width 13.6 % (11.0-16.0); White Blood Count 5.4 X10*3/uL (4.8-10.8)
[2024-12-10 18:30] LABS: Anion Gap 13 (12-20); Blood Urea Nitrogen 44 mg/dL (9-16); Carbon Dioxide 26 mmol/L (22-29); Chloride 107 mmol/L (96-108); Estimated Glomerular Filt Rate 25; Magnesium 2.6 mg/dL (1.6-2.6); Potassium 3.3 mmol/L (3.3-5.1); Sodium 143 mmol/L (135-145)
== END 2024-12-10 11:46 | disposition home or self-care (01) ==
LOC: HO.HKASLDS 11:45
PROVIDERS: Visit Provider Internal Medicine Nephrology
DX: N18.4 Chronic kidney disease, stage 4 (severe) (principal); E11.22 Type 2 diabetes mellitus with diabetic chronic kidney disease; I12.9 Hypertensive chronic kidney disease with stage 1 through stage 4 chronic kidney disease, or unspecified chronic kidney disease
CPT/HCPCS: 36415; 80051; 82310; 82565; 83735; 84520; 85025

== ENCOUNTER 2024-12-17 13:47 | Outpatient (AMB) | payer OTHER, SELFPAY ==
--- NOTE | 2024-12-17 13:55 | HO.NEPHOV_ITS ---
Vital Signs 12/17/24 13:56 Height 5 ft 7 in Weight 197 lb 6 oz BMI 30.9 BP 130/60 Blood Pressure Location Lt brachial Position Sitting Pulse 50 Pulse Source Pulse Oximeter Pulse Oximetry (%) 97 Oxygen Delivery Method Room Air Intake Visit Reasons: Follow up 1mo-LVM Radiology Administrator Required: No Accompanied by: Spouse Allergies NSAIDS (Non-Steroidal Anti-Inflamma Allergy (Verified 12/17/24 13:56) Unknown Penicillins Allergy (Verified 12/17/24 13:56) Rash acetaminophen [From Percocet] Adverse Reaction (Verified 12/17/24 13:56) Anxiety diazepam [From Valium] Adverse Reaction (Verified 12/17/24 13:56) Swelling oxycodone [From Percocet] Adverse Reaction (Verified 12/17/24 13:56) Anxiety risperidone [From Risperdal] Adverse Reaction (Verified 12/17/24 13:56) Unknown spironolactone Adverse Reaction (Verified 12/17/24 13:56) Unknown HPI Comments Details: Rogers was seen in follow-up for his chronic kidney disease. 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 He was taking nonsteroidal anti-inflammatories in the past which has been discontinued. He has no hypoglycemia. He had congestive heart failure in January of 2024. Echocardiogram done at that time showed hyperdynamic LV systolic function with no significant regional wall motion abnormality, indeterminate LV diastolic dysfunction due to atrial fibrillation, normal RV systolic function and size with biatrial enlargement. He denies any chest pain, nausea, vomiting, diarrhea. His weight is stable. He is compliant with his medications and low-sodium diet. His blood sugars have been better [facility] Medical History (Updated 09/05/24 @ 12:59 by Brian Castano MD) Varicose vein of leg Ulnar neuropathy Restless leg syndrome Obesity Peptic ulcer disease Pedal edema Osteoarthritis HOLLIS (obstructive sleep apnea) New onset tinnitus of right ear Lumbosacral spondylolysis Lumbar radiculopathy Hypertension Hyperlipidemia Hiatal hernia Flexor tenosynovitis of finger Erectile dysfunction Drug-induced gynecomastia Diastasis recti Diabetic neuropathy Diabetes mellitus, type II Coronary artery disease Chronic kidney disease, stage 3a Chronic back pain Carpal tunnel syndrome Carotid artery stenosis Bilateral inguinal hernia Angle-closure glaucoma Surgical History History of coronary artery stent placement Social History Alcohol intake: never Patient Tobacco Use Status: Never used Tobacco Review of Systems Const All systems reviewed & are unremarkable except as noted in HPI and below Physical Exam Vital Signs: Last Vital Signs Pulse 50 12/17/24 13:56 BP 160/70 H 12/17/24 13:56 Pulse Ox 97 12/17/24 13:56 Oxygen Delivery Method Room Air 12/17/24 13:56 BMI result Body Mass Index 30.9 Const General: comfortable and no acute distress Orientation/consciousness: patient oriented x3 HEENT Head: Yes normocephalic Mouth: Normal oral and palatal mucosa present Eyes EOM: EOMs intact bilaterally Neck Neck: Yes supple Resp Auscultation: clear to auscultation bilaterally Cardio Jugular venous distension: no JVD Rate: regular rate GI Palpation (GI): Soft to palpation Auscultation: normal bowel sounds General: Yes no CVA tenderness Back/Spine/Pelvis Back: no CVA tenderness Skin General skin exam: no rashes or lesions noted Neuro General: patient oriented x3 and moves all extremities Extrem General: Yes no pedal edema Results Reviewed Nephrology Results: Hgb 10.8 g/dl (14.0-18.0) L 12/10/24 WBC 5.4 X10*3/uL (4.8-10.8) 12/10/24 Plt Count 192 X10*3/uL (160-400) 12/10/24 Sodium 143 mmol/L (135-145) 12/10/24 Potassium 3.3 mmol/L (3.3-5.1) 12/10/24 Chloride 107 mmol/L (96-108) 12/10/24 Carbon Dioxide 26 mmol/L (22-29) 12/10/24 BUN 44 mg/dL (9-16) H 12/10/24 Creatinine 2.54 mg/dL (0.5-1.4) H 12/10/24 Calcium 10.0 mg/dL (8.4-10.2) 12/10/24 Phosphorus 3.6 mg/dL (2.7-4.5) 11/14/24 PTH Intact 444.1 pg/mL (8.7-77.1) H 11/14/24 Urine Creatinine 63.38 mg/dL 11/14/24 Protein/Creatinin Ratio 3.09 (<0.2) H 11/14/24 Assessment & Plan Assessment & Plan (1) CKD stage 4 due to type 2 diabetes mellitus: Code(s): E11.22 - Type 2 diabetes mellitus with diabetic chronic kidney disease; N18.4 - Chronic kidney disease, stage 4 (severe) Category: Medical (2) Hypertension: Code(s): I10 - Essential (primary) hypertension Category: Medical Qualifiers: Hypertension type: primary hypertension Qualified Code(s): I10 - Essential (primary) hypertension (3) Secondary hyperparathyroidism of renal origin: Code(s): N25.81 - Secondary hyperparathyroidism of renal origin Category: Medical (4) Hyperuricemia: Code(s): E79.0 - Hyperuricemia without signs of inflammatory arthritis and tophaceous disease Category: Medical Plan Rogers has diabetic nephropathy. He has history of AMANDA needing one treatment with hemodialysis. He has been having no edema. He has proteinuria and is on Nifedipine. He is on torsemide 60 mg twice daily. His blood pressure is at goal. He keeps up with his CPAP. Sestamibi scan was done in the past which showed parathyroid adenoma and has seen by [facility]. He also has history of carotid stenosis and hyperuricemia. He can continue Allopurinol 100 mg daily . I D/Remington his metformin and increased his Jardiance to 25 mg daily at last visit . He will need activated vitamin D soon. He should continue low-sodium diet and weigh himself daily. He should avoid nonsteroidal anti-inflammatories. All these have been explained in detail to him and his . Follow-up appointment given Orders: Orders Complete Blood Count Auto Diff 2 Months E11.22 - Type 2 diabetes mellitus with diabetic chronic kidney disease, E79.0 - Hyperuricemia without signs of inflammatory arthritis and tophaceous disease, I10 - Essential (primary) hypertension, N18.4 - Chronic kidney disease, stage 4 (severe), N25.81 - Se condary hyperparathyroidism of renal origin Creatinine 2 Months E11.22 - Type 2 diabetes mellitus with diabetic chronic kidney disease, E79.0 - Hyperuricemia without signs of inflammatory arthritis and tophaceous disease, I10 - Essential (primary) hypertension, N18.4 - Chronic kidney disease, stage 4 (severe), N25.81 - Secondary hyperparathyroidism of renal origin Blood Urea Nitrogen 2 Months E11.22 - Type 2 diabetes mellitus with diabetic chronic kidney disease, E79.0 - Hyperuricemia without signs of inflammatory arthritis and tophaceous disease, I10 - Essential (primary) hypertension, N18.4 - Chronic kidney disease, stage 4 (severe), N25.81 - Secondary hyperparathyroidism of renal origin Electrolytes 2 Months E11.22 - Type 2 diabetes mellitus with diabetic chronic kidney disease, E79.0 - Hyperuricemia without signs of inflammatory arthritis and tophaceous disease, I10 - Essential (primary) hypertension, N18.4 - Chronic kidney disease, stage 4 (severe), N25.81 - Secondary hyperparathyroidism of renal origin Vitamin D 25-OH Total 2 Months E11.22 - Type 2 diabetes mellitus with diabetic chronic kidney disease, E79.0 - Hyperuricemia without signs of inflammatory arthritis and tophaceous disease, I10 - Essential (primary) hypertension, N18.4 - Chronic kidney disease, stage 4 (severe), N25.81 - Secondary hyperparathyroidism of renal origin IRON PROFILE 2 Months E11.22 - Type 2 diabetes mellitus with diabetic chronic kidney disease, E79.0 - Hyperuricemia without signs of inflammatory arthritis and tophaceous disease, I10 - Essential (primary) hypertension, N18.4 - Chronic kidney disease, stage 4 (severe), N25.81 - Secondary hyperparathyroidism of renal origin Calcium 2 Months E11.22 - Type 2 diabetes mellitus with diabetic chronic kidney disease, E79.0 - Hyperuricemia without signs of inflammatory arthritis and tophaceous disease, I10 - Essential (primary) hypertension, N18.4 - Chronic kidney disease, stage 4 (severe), N25.81 - Secondary hyperparathyroidism of renal origin Coding Level of Care Code Est Pt Level 4 (16962) Diagnoses CKD stage 4 due to type 2 diabetes mellitus E11.; N18.4 Primary hypertension I10 Hypertension type: primary hypertension Secondary hyperparathyroidism of renal origin N25.81 Hyperuricemia E79.0
[2024-12-17 13:56] VITALS: BP 130/60; PULSE 50; O2SAT 97; BMI 30.9
--- OUTSIDE RECORDS SUMMARY | 2024-12-17 17:27 | XMS_ITS | Encounter Summary ---
Author Organization [facility] Address [address] [place] [address] Care Team Providers Care Test Puller Name Role Phone Flakito Reyes MD Primary Care Provider + [phone] Reason for Visit * Reason Onset Date Comments Follow Up Appointment 11/19/2024 Encounter Details Date Type Department Care Team ([facility] st Contact Info) Description 11/19/2024 Telephone General Surgery [facility] 175 [facility] [address] [place] [address] Kehinde Bryan MA Follow Up [...] AM EDT Office Visit General Surgery - [place] 175 [facility] 110 [place] [address] Shirley Tarango MD 175 [facility] 110 [place] [address] 01/23/2025 2:30 PM EDT Ancillary Procedure [facility] Cardiology [facility] - [facility] 101 300 [facility] [address] [place] [address] 04/01/2025 3:30 PM EDT Office Visit [facility] - [facility] 154 300 [facility] 154 [place] [address] Sachin Dial MD 300 [facility] [address] [place] [address] documented as of this encounter Visit Diagnoses Not on filedocumented in this encounter Care Teams Test Puller Relationship Specialty Start Date End Date Flakito Reyes MD [address] [place] [id number] PCP - General 01/03/24 documented as of this encounter
--- OUTSIDE RECORDS SUMMARY | 2024-12-17 17:27 | XMS_ITS | Encounter Summary ---
Author Organization [facility] Address [address] [place] [address] Care Team Providers Care Dial Maker Name Role Phone Flakito Reyes MD Primary Care Provider + [phone] Reason for Referral * Imaging (Routine) - [...] CONTRAST WITH DOPPLER Mar Jones NP [address] [address] Phone: tel: fax: [facility] Referral ID Status Reason Start Date Expiration Date V isits Requested Visits Authorized [id number] Pending Review 11/18/2024 11/18/2025 1 1 Reason for Visit * Reason Comments Follow-up * Other Medical (Routine) - Authorized Specialty Diagnoses / Procedures Referred By Mirian schwartz Referred To Contact Cardiology Diagnoses [HFU/Pre Op Dx:cath f/u,Lap? Open Interval Appendectomy,poss bowel resecction, cath done on 07/04/24 w/ [facility] at [facility], d/c 07/04/24, cr/jm pt]; 07/16/24 Surgery date TBD by Dr. Tarango at [facility], [facility]; 07/11/24 spoke w/ pt, appt ltr sent. Walker; 05-06-24 Spoke to daughter sent letter -[facility] FOLLOW UP Flakito Reyes MD [address] [place] [address] Phone: tel: fax: Sachin Dial MD Phone: tel: fax: Referral ID Status Reason Start Date Expiration Date V isits Requested Visits Authorized [id number] Authorized 01/25/2024 01/23/2025 3 3 Encounter Details Date Type Department Care Team (Late st Contact Info) Description 11/18/2024 8:40 AM EST Office Visit [facility] - [address] [place] [phone] Mar Jones NP [address] [place] [phone] Heart murmur (Primary Dx); Acute on chronic heart failure with preserved ejection fraction (CMS/HCC); Atrial fibrillation, unspecified type (CMS/HCC); Other hyperlipidemia; Coronary artery disease of [place] artery of [place] heart with stable angina pectoris (CMS/HCC) Social [...] AM ESTAssociated Problem(s): Coronary artery disease of [place] artery of [place] heart with stable angina p ectoris ([facility]) He denies any recurrence of any anginal [...] from the original note were not included. [facility] PRIMARY WHIRLEY OPERATOR: Sachin Dial MD PCP: Flakito Reyes MD HPI: [place] Keke Garces is a 74 y.o. 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 Patient also has a history of septic shock due to acuterenal failure and was treated at [facility] in October 2023. He had rising troponins and had been empirically started on a heparin drip. Patient ended up being treated with IV Lasix and was released. December 25, 2017 patient presented to [facility] with progressive shortness of breath including [...] symptoms persist. He presents today for follow-up. assistant professor of anthropology was used throughout the entirety of our [...] (shortness of breath) Coronary artery disease of [place] artery of [place] heart with stable angina pectoris (CMS/HCC) Bruit [...] Q-T Interval 418 QTc 418 P Wave Boring 49 R Boring 43 T Boring 69 ECG Interpretation Sinus rhythm with 1st [...] Lipitor 80 mg. Coronary artery disease of [place] artery of [place] heart with stable angina pectoris (CMS/HCC) He [...] Other hyperlipidemia 5. Coronary artery disease of [place] artery of [place] heart with stable angina pectoris (CMS/HCC) [facility] Cosigned by Sachin Dila MD at 11/21/2024 1:22 PM EST documented in this encounter Plan of Treatment Upcoming Encounters Date Type Department Care Team (Late st Contact Info) Description 01/07/2025 11:30 AM EDT Office Visit General Surgery - [place] [address] [facility] [address] [place] [phone] Shirley Tarango MD [address] [facility] [address] [place] [address] 01/23/2025 2:30 PM EDT Ancillary Procedure [facility] Cardiology [facility] - [address] [place] [address] 04/01/2025 3:30 PM EDT Office Visit [facility] - [address] [place] [phone] Sachin Dial MD [address] [place] [address] Scheduled Orders Name Type Priority Associated Diagnoses [...] (CMS/HCC) Other hyperlipidemia Coronary artery disease of [place] artery of [place] heart with stable angina pectoris (CMS/HCC) documented in this encounter Historical Medications * This list may reflect changes made after this encounter. atorvastatin (LIPITOR) 80 mg tablet Take 1 tablet (80 mg total) by mouth at bedtime. added in this encounter Care Teams Dial Maker Relationship Specialty Start Date End Date Flakito Reyes MD [address] [place] [id number] PCP - General 01/03/24 documented as of this encounter
--- OUTSIDE RECORDS SUMMARY | 2024-12-17 17:27 | XMS_ITS | Clinical Summary ---
Author Organization [facility] Address [address] [facility] [address] [place] [address] Phone Care Team Providers Care Fountain Roller Assembler Name Role Phone Flakito Reyes MD Primary Care Provider [phone] Allergies Active Allergy Reactions Criticality Noted Date [...] HEALTH MEDICARE [facility] [employer] Care Teams Fountain Roller Assembler Relationship Specialty Start Date End Date Flakito Reyes MD [address] [place] [address] PCP - General 10/26/20
--- OUTSIDE RECORDS SUMMARY | 2024-12-17 17:27 | XMS_ITS | Clinical Summary ---
Author Organization [address] [place] [address] [place] [phone] Phone Care Team Providers Care Auto Crane Driver Name Role Phone Flakito Reyes MD Primary Care Provider [phone] Allergies Active Allergy Reactions Criticality Noted Date Comments Acetaminophen 01/25/2024 Diazepam Other 12/12/2023 valium Morphine 12/12/2023 Oxycodone 01/25/2024 Oxycodone-Acetaminophen 12/12/2023 Penicillins 01/25/2024 Risperidone 01/25/2024 Medications apixaban (ELIQUIS) 5 mg tablet Take 1 tablet (5 mg total) by mouth 2 (two) times a day. 4 Active vit B complx/folic acid/lysine (B COMPLEX VITAMINS PO) Take by mouth. Ac tive carvediloL (COREG) 25 mg tablet Take 1 [...] 1 (one) time each day. 4 Active empagliflozin (Jardiance) 10 mg tablet Take 1 tablet (10 mg total) by mouth 1 (one) time each day in the morning. Active allopurinoL (ZYLOPRIM) 100 mg tablet Take 1 tablet (100 mg total) by mouth 1 (one) time each day. Active isosorbide mononitrate (IMDUR) 60 mg 24 hr tabletIndicatio ns:Heart failure with preserved ejection fraction, unspecified HF chronicity (CMS/HCC),Coron grace artery disease due to lipid rich plaque Take 1 tablet (60 mg total) by mouth 1 (one) time each day. Do not crush or chew. 30 each 11 4 09/05/20 25 Active atorvastatin (LIPITOR) 80 mg tablet Take 1 tablet (80 mg total) by mouth at bedtime. Active potassium chloride 20 mEq tablet extended release TOME DOS TABLETAS POR VIA ORAL TODOS [place] 180 tablet 1 5 Active potassium chloride (KLOR-CON M20) 20 mEq CR tablet Take 1 tablet (20 mEq total) by mouth 1 (one) time each day. Tablet may be swallowed whole (do not crush/chew/suc k on) OR broken in half and each half swallowed separately OR dissolved (whole tablet) in ~4 ounces of water (allow ~2 minutes to dissolve, stir well and administer immediately). TOME DOS TABLETAS (40MEQ) POR VIA ORAL A DIARIO 12/17/19 25 Discontin ued(Joeli devika order) Active Problems Problem Noted Date Diagnosed Date Coronary artery disease of n ative artery of [place] heart with stable angina pectoris 09/05/2024 Assessment [...] the patient has just come from his paralegal assistant who is 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 [...] Team Description 11/19/2024 Telephone General Surgery - [place] [address] [place] [address] Kehinde Bryan MA Follow Up Appointment 11/18/2024 8:40 AM EST Office Visit [facility] Cardiology [facility] [address] [place] [address] Mar Jones NP Heart murmur (Primary Dx); Acute on chronic heart failure with preserved ejection fraction (CMS/HCC); Atrial fibrillation, unspecified type (CMS/HCC); Other hyperlipidemia; Coronary artery disease of [place] artery of [place] heart with stable angina pectoris (CMS/HCC) 10/11/2024 Telephone [facility] Cardiology [facility] [address] [place] [address] Saúl Smith [place] Results (Carotid duplex results) 09/23/2024 10:30 AM EST Ancillary Procedure [facility] Cardiology [facility] - [address] [place] [phone] Coronary artery disease due to lipid rich plaque; Hyperlipidemia, unspecified hyperlipidemia type; Bruit of right carotid artery from Last 3 Months Surgical History Surgery Date Site/Laterality Comments CARDIAC CATHETERIZATION DONE ON 07/04/2024 AT [facility] INDICATIONS:ABNORMAL STRESS TEST Medical History Medical History Date Comments Acute on chronic congestive heart failure with left ventricular diastolic dysfunction (CMS/HCC) Atrial fibrillation (CMS/HCC) HTN (hypertension) Aortic valve sclerosis Heart failure with preserved ejection fraction ( CMS/HCC) HLD (hyperlipidemia) Chest pain SOB (shortness of breath) Hx of respiratory failure Family History Medical History Relation Name Comments [place] Father Diabetes Other HLD Other Hypertension Other [...] AM EDT Office Visit General Surgery - [place] 175 [facility] 110 [place] [address] Shirley Tarango MD 175 [facility] 110 [place] [address] 01/23/2025 2:30 PM EDT Ancillary Procedure [facility] - [facility] [address] [facility] 101 [place] [address] 04/01/2025 3:30 PM EDT Office Visit [facility] Cardiology [facility] - [facility] 154 300 [facility] 154 [place] [address] Sachin Dial MD 300 [facility] 154 [place] [address] Health Maintenance Due Date Last Done Comments [...] mg/dL LAB CHEMISTRY METHOD 10/14/2024 4:26 PM [facility] Triglycerides 208(H) 0 - 150 mg/dL LAB CHEMISTRY METHOD 10/14/2024 4:26 PM [facility] HDL 36(L) >=40 mg/dL LAB CHEMISTRY METHOD 10/14/2024 4:26 PM [facility] LDL Calculated 50 0 - 100 mg/dL LAB CHEMISTRY METHOD 10/14/2024 4:26 PM [facility] VLDL Cholesterol Jj 41.6 mg/dL LAB CHEMISTRY METHOD 10/14/2024 4:26 PM [facility] Non HDL Chol. (LDL+VLDL) 92 <145 mg/dL LAB CHEMISTRY METHOD 10/14/2024 4:26 PM [facility] Chol/HDL Ratio 3.6 0.0 - 4.4 LAB CHEMISTRY METHOD 10/14/2024 4:26 PM [facility] Blood Venous blood specimen / Unknown Venipuncture / Unknown 10/14/2024 9:58 AM EST 10/14/2024 9:58 AM EST Mar Jones KAIAKO KOHANGA [facility] LAB BLOOD ORDERABLES F inal Result DAREK MENDO[facility] [address] [place] [address], * Vascular US duplex carotid bilateral (09/23/2024 11:04 AM EST) Left CCA dist sys 100 cm/s CV [facility] LAB Left CCA dist flores 30 cm/s CV [facility] LAB LEFT COMMON CAROTID ARTERY MID S 119 cm/s CV V[facility] LAB LEFT COMMON CAROTID ARTERY MID D 22 cm/s CV VAS LAB Left CCA prox sys 100 cm/s CV VAS LAB Left CCA prox flores 30 cm/s CV VAS LAB Left ICA dist sys 88 cm/s CV VAS LAB Left ICA dist flores 30 cm/s CV VAS LAB Left ICA mid sys 108 cm/s CV VAS LAB Left ICA mid flores 26 cm/s CV VAS LAB Left ICA prox sys 92 cm/s CV VAS LAB Left ICA prox flores 27 cm/s CV VAS LAB Left ECA sys 257 cm/s CV VAS LAB LEFT EXTERNAL CAROTID ARTERY D 36 cm/s CV VAS LAB Left Prox Subclavian PSV 232 cm/s CV VAS LAB Left vertebral sys 29 cm/s CV V[facility] LAB Right cca dist sys 188 cm/s CV VAS LAB Right CCA dist flores 19 cm/s CV VAS LAB RIGHT COMMON CAROTID ARTERY MID S 165 cm/s CV VAS LAB RIGHT COMMON CAROTID ARTERY MID D 17 cm/s CV VAS LAB Right CCA prox sys 123 cm/s CV VAS LAB Right CCA prox flores 23 cm/s CV VAS LAB Right ICA dist sys 94 cm/s CV VAS LAB Right ICA dist flores 22 cm/s CV VAS LAB Right ICA mid sys 111 cm/s CV VAS LAB Right ICA mid flores 26 cm/s CV VAS LAB Right ICA prox sys 107 cm/s CV VAS LAB Right ICA prox flores 17 cm/s CV VAS LAB Right eca [...] plaque. The vertebral artery flow is retrograde. Application Development Director Details A rivas scale, color and doppler analysis ultrasound was performed. During the study longitudinal and transverse views were obtained. Pulsed wave doppler was performed. Overall the study quality was adequate. Mar Jones NP CV VASCULAR PROCEDURES Final Result * Annual BMP Blood Test (07/08/2024) Pathologist [facility] Annual BMP Blood Test abstracted Historical Provider HEALTH MAINTENANCE Final Result from Last 3 Months or Most Recently Relevant to Health Maintenance Insurance [employer] Care Teams Auto Crane Driver Relationship Specialty Start Date End Date Flakito Reyes MD [address] [place] [id number] PCP - General 01/03/24
== END 2024-12-17 14:39 | disposition home or self-care (01) ==
PROVIDERS: PCP Internal Medicine; Visit Provider Internal Medicine Nephrology
DX: E11.22 Type 2 diabetes mellitus with diabetic chronic kidney disease (principal); N18.4 Chronic kidney disease, stage 4 (severe); I12.9 Hypertensive chronic kidney disease with stage 1 through stage 4 chronic kidney disease, or unspecified chronic kidney disease; N25.81 Secondary hyperparathyroidism of renal origin; E79.0 Hyperuricemia without signs of inflammatory arthritis and tophaceous disease
CPT/HCPCS: 99214

== ENCOUNTER → 2024-12-17 13:47 | Outpatient (BNVA) | payer OTHER, SELFPAY | PROVIDERS: PCP Internal Medicine; Visit Provider Internal Medicine Nephrology | DX: E11.22 Type 2 diabetes mellitus with diabetic chronic kidney disease (principal); I12.9 Hypertensive chronic kidney disease with stage 1 through stage 4 chronic kidney disease, or unspecified chronic kidney disease; N18.4 Chronic kidney disease, stage 4 (severe); N25.81 Secondary hyperparathyroidism of renal origin; E79.0 Hyperuricemia without signs of inflammatory arthritis and tophaceous disease | CPT/HCPCS: 99212 ==

== ENCOUNTER 2025-03-27 12:20 | Outpatient (REF) | payer OTHER, SELFPAY ==
[2025-03-27 17:29] LABS: MANUAL DIFF FLAG NO
[2025-03-27 17:39] LABS: Basophils Percent Auto 0.5 % (0-2); Eosinophils Absolute Auto 0.1 X10*3/uL (0.0-0.4); Eosinophils Percent Auto 2.1 % (0-4); Hematocrit 34.3 % (42.0-52.0); Hemoglobin 11.2 g/dl (14.0-18.0); Imm Gran Abs Auto 0.02 X10*3/uL (0.00-0.03); Imm Gran Pct Auto 0.3 % (0.0-0.4); Lymphocytes Absolute Auto 1.4 X10*3/uL (1.2-4.9); Lymphocytes Percent Auto 22.6 % (20-40); Mean Corpuscular HGB Conc 32.7 g/dl (31.0-36.0); Mean Corpuscular Hemoglobin 30.6 pg (27.0-33.0); Mean Corpuscular Volume 93.7 fL (80.0-98.0); Monocytes Absolute Auto 0.5 X10*3/uL (0.1-1.2); Monocytes Percent Auto 8.1 % (2-11); Neutrophils Absolute Auto 4.2 x10*3/uL (2.0-8.3); Neutrophils Percent Auto 66.4 % (45-73); Platelet Count 217 X10*3/uL (160-400); Red Blood Count 3.66 X10*6/uL (4.60-5.80); Red Cell Distribution Width 13.4 % (11.0-16.0); White Blood Count 6.3 X10*3/uL (4.8-10.8)
[2025-03-27 17:54] LABS: Anion Gap 9 (12-20); Blood Urea Nitrogen 44 mg/dL (9-16); Calcium 9.9 mg/dL (8.4-10.2); Carbon Dioxide 28 mmol/L (22-29); Chloride 107 mmol/L (96-108); Estimated Glomerular Filt Rate 20; Iron 42 mcg/dL (45-160); Percent Iron Saturation 15 % (15-50); Sodium 140 mmol/L (135-145); Total Iron Binding Capacity 276 mcg/dL (228-428); Unsaturated Iron Binding 234 ug/dL
[2025-03-27 18:09] LABS: Vitamin D 25-OH Total 39.2 ng/mL (>30)
== END 2025-03-27 12:21 | disposition home or self-care (01) ==
LOC: HO.HKASLDS 12:20
PROVIDERS: Visit Provider Internal Medicine Nephrology
DX: E11.22 Type 2 diabetes mellitus with diabetic chronic kidney disease (principal); N18.4 Chronic kidney disease, stage 4 (severe); I10 Essential (primary) hypertension; E79.0 Hyperuricemia without signs of inflammatory arthritis and tophaceous disease; N25.81 Secondary hyperparathyroidism of renal origin
CPT/HCPCS: 36415; 80051; 82306; 82310; 82565; 83540; 84520; 85025

== ENCOUNTER 2025-04-03 10:49 | Outpatient (AMB) | payer OTHER, SELFPAY ==
--- NOTE | 2025-04-03 11:24 | HO.NEPHOV ---
Vital Signs 04/03/25 11:27 Height 5 ft 7 in Weight 196 lb 6 oz BMI 30.8 BP 116/60 Blood Pressure Location Lt brachial Position Sitting Pulse 57 Pulse Source Pulse Oximeter Pulse Oximetry (%) 98 Oxygen Delivery Method Room Air Intake Visit Reasons: Follow up Derrick Barge Operator Required: No Accompanied by: Spouse Allergies NSAIDS (Non-Steroidal Anti-Inflamma Allergy (Verified 04/03/25 11:27) Unknown Penicillins Allergy (Verified 04/03/25 11:27) Rash acetaminophen (From Percocet) Adverse Reaction (Verified 04/03/25 11:27) Anxiety diazepam (From Valium) Adverse Reaction (Verified 04/03/25 11:27) Swelling oxycodone (From Percocet) Adverse Reaction (Verified 04/03/25 11:27) Anxiety risperidone (From Risperdal) Adverse Reaction (Verified 04/03/25 11:27) Unknown spironolactone Adverse Reaction (Verified 04/03/25 11:) Unknown HPI Comments Details: Rogers was seen in follow-up for his chronic kidney disease. 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 He was taking nonsteroidal anti-inflammatories in the past which has been discontinued. He has no hypoglycemia. He had congestive heart failure in January of 2024. Echocardiogram done at that time showed hyperdynamic LV systolic function with no significant regional wall motion abnormality, indeterminate LV diastolic dysfunction due to atrial fibrillation, normal RV systolic function and size with biatrial enlargement. He denies any chest pain, nausea, vomiting, diarrhea. His weight is stable. He is compliant with his medications and low-sodium diet. His blood sugars have been better. He has been having leg cramps. [facility] Medical History (Updated 04/03/25 @ 11:39 by Brian Castano MD) Varicose vein of leg Ulnar neuropathy Restless leg syndrome Obesity Peptic ulcer disease Pedal edema Osteoarthritis HOLLIS (obstructive sleep apnea) New onset tinnitus of right ear Lumbosacral spondylolysis Lumbar radiculopathy Hypertension Hyperlipidemia Hiatal hernia Flexor tenosynovitis of finger Erectile dysfunction Drug-induced gynecomastia Diastasis recti Diabetic neuropathy Diabetes mellitus, type II Coronary artery disease Chronic kidney disease, stage 3a Chronic back pain Carpal tunnel syndrome Carotid artery stenosis Bilateral inguinal hernia Angle-closure glaucoma Surgical History History of coronary artery stent placement Social History Alcohol intake: never Patient Tobacco Use Status: Never used Tobacco Review of Systems Const All systems reviewed & are unremarkable except as noted in HPI and below Physical Exam Vital Signs: Last Vital Signs Pulse 57 04/03/25 11:27 BP 116/60 04/03/25 11:27 Pulse Ox 98 04/03/25 11:27 Oxygen Delivery Method Room Air 04/03/25 11:27 BMI result Body Mass Index 30.8 Const General: comfortable and no acute distress Orientation/consciousness: patient oriented x3 HEENT Head: Yes normocephalic Mouth: Normal oral and palatal mucosa present Eyes EOM: EOMs intact bilaterally Neck Neck: Yes supple Resp Auscultation: clear to auscultation bilaterally Cardio Jugular venous distension: no JVD Rate: regular rate GI Palpation (GI): Soft to palpation Auscultation: normal bowel sounds General: Yes no CVA tenderness Back/Spine/Pelvis Back: no CVA tenderness Skin General skin exam: no rashes or lesions noted Neuro General: patient oriented x3 and moves all extremities Extrem General: Yes no pedal edema Results Reviewed Nephrology Results: Hgb, (14.0-18.0) 11.2 g/dl L 03/27/25 WBC, (4.8-10.8) 6.3 X10*3/uL 03/27/25 Plt Count, (160-400) 217 X10*3/uL 03/27/25 Sodium, (135-145) 140 mmol/L 03/27/25 Potassium, (3.3-5.1) 4.0 mmol/L Δ 03/27/25 Chloride, (96-108) 107 mmol/L 03/27/25 Carbon Dioxide, (22-29) 28 mmol/L 03/27/25 BUN, (9-16) 44 mg/dL H 03/27/25 Creatinine, (0.5-1.4) 3.06 mg/dL H 03/27/25 Calcium, (8.4-10.2) 9.9 mg/dL 03/27/25 Phosphorus, (2.7-4.5) 3.6 mg/dL 11/14/24 PTH Intact, (8.7-77.1) 444.1 pg/mL H 11/14/24 Urine Creatinine 63.38 mg/dL 11/14/24 Protein/Creatinin Ratio, (<0.2) 3.09 H 11/14/24 Assessment & Plan Assessment & Plan (1) CKD stage 4 due to type 2 diabetes mellitus: Code(s): E11.22 - Type 2 diabetes mellitus with diabetic chronic kidney disease; N18.4 - Chronic kidney disease, stage 4 (severe) Category: Medical (2) Hypertension: Code(s): I10 - Essential (primary) hypertension Category: Medical Qualifiers: Hypertension type: primary hypertension Qualified Code(s): I10 - Essential (primary) hypertension (3) Secondary hyperparathyroidism of renal origin: Code(s): N25.81 - Secondary hyperparathyroidism of renal origin Category: Medical (4) Hyperuricemia: Code(s): E79.0 - Hyperuricemia without signs of inflammatory arthritis and tophaceous disease Category: Medical Plan Rogers has diabetic nephropathy. He has history of AMANDA needing one treatment with hemodialysis. He has been having no edema. He is on torsemide 60 mg twice daily. His blood pressure is at goal. He keeps up with his CPAP. Sestamibi scan was done in the past which showed parathyroid adenoma and has seen by [facility]. He also has history of carotid stenosis and hyperuricemia. He can continue Allopurinol 100 mg daily . He can continue Jardiance 25 mg daily at last visit . He will need activated vitamin D soon. He should continue low-sodium diet and weigh himself daily. I prescribed him Magnesium and encouraged him to take tonic water for his leg cramps. He should avoid nonsteroidal anti-inflammatories. All these have been explained in detail to him and his . Follow-up appointment given Orders: Orders Creatinine 3 Months E11.22 - Type 2 diabetes mellitus with diabetic chronic kidney disease, E79.0 - Hyperuricemia without signs of inflammatory arthritis and tophaceous disease, I10 - Essential (primary) hypertension, N18.4 - Chronic kidney disease, stage 4 (severe), N25.81 - Secondary hyperparathyroidism of renal origin Calcium 3 Months E11.22 - Type 2 diabetes mellitus with diabetic chronic kidney disease, E79.0 - Hyperuricemia without signs of inflammatory arthritis and tophaceous disease, I10 - Essential (primary) hypertension, N18.4 - Chronic kidney disease, stage 4 (severe), N25.81 - Secondary hyperparathyroidism of renal origin Parathyroid Hormone Intact 3 Months E11.22 - Type 2 diabetes mellitus with diabetic chronic kidney disease, E79.0 - Hyperuricemia without signs of inflammatory arthritis and tophaceous disease, I10 - Essential (primary) hypertension, N18.4 - Chronic kidney disease, stage 4 (severe), N25.81 - Secondary hyperparathyroidism of renal origin Electrolytes 3 Months E11.22 - Type 2 diabetes mellitus with diabetic chronic kidney disease, E79.0 - Hyperuricemia without signs of inflammatory arthritis and tophaceous disease, I10 - Essential (primary) hypertension, N18.4 - Chronic kidney disease, stage 4 (severe), N25.81 - Secondary hyperparathyroidism of renal origin Blood Urea Nitrogen 3 Months E11.22 - Type 2 diabetes mellitus with diabetic chronic kidney disease, E79.0 - Hyperuricemia without signs of inflammatory arthritis and tophaceous disease, I10 - Essential (primary) hypertension, N18.4 - Chronic kidney disease, stage 4 (severe), N25.81 - Secondary hyperparathyroidism of renal origin Magnesium 3 Months E11.22 - Type 2 diabetes mellitus with diabetic chronic kidney disease, E79.0 - Hyperuricemia without signs of inflammatory arthritis and tophaceous disease, I10 - Essential (primary) hypertension, N18.4 - Chronic kidney disease, stage 4 (severe), N25.81 - Secondary hyperparathyroidism of renal origin Complete Blood Count Auto Diff 3 Months E11.22 - Type 2 diabetes mellitus with diabetic chronic kidney disease, E79.0 - Hyperuricemia without signs of inflammatory arthritis and tophaceous disease, I10 - Essential (primary) hypertension, N18.4 - Chronic kidney disease, stage 4 (severe), N25.81 - Secondary hyperparathyroidism of renal origin Vitamin D 25-OH Total 3 Months E11.22 - Type 2 diabetes mellitus with diabetic chronic kidney disease, E79.0 - Hyperuricemia without signs of inflammatory arthritis and tophaceous disease, I10 - Essential (primary) hypertension, N18.4 - Chronic kidney disease, stage 4 (severe), N25.81 - Secondary hyperparathyroidism of renal origin Uric Acid 3 Months E79.0 - Hyperuricemia without signs of inflammatory arthritis and tophaceous disease Medications: New magnesium oxide 200 mg PO BID 180 tabs 4RF 90 days Coding Level of Care Code Est Pt Level 4 (84924) Diagnoses CKD stage 4 due to type 2 diabetes mellitus E11.22; N18.4 Primary hypertension I10 Hypertension type: primary hypertension Secondary hyperparathyroidism of renal origin N25.81 Hyperuricemia E79.0
[2025-04-03 11:27] VITALS: BP 116/60; PULSE 57; O2SAT 98; BMI 30.8
--- OUTSIDE RECORDS SUMMARY | 2025-04-03 12:23 | XMS_ITS | Clinical Summary ---
Author Organization [facility] Address [address] [facility] [address] [place] [address] Phone Care Team Providers Care Cosmetic Account Coordinator Name Role Phone Flakito Reyes MD Primary Care Provider [phone] Allergies Active Allergy Reactions Criticality Noted Date [...] Stage 3a chronic kidney disease 12/31/2020 Immunizations Immunization Administration Dates Next Due Hepatitis A 08/05/2010,02/10/2010,08/03/2009 [...] Diabetes: Visual Foot Exam 11/16/2020 Influenza Vaccine (Season Ended) 2025 Hepatitis B Vaccine Aged Out 08/05/2010, 06/03/2010, 02/10/2010 No longer eligible based on patient's age to complete this topic Pneumococcal Vaccine: 50+ Years Completed 08/20/2019, 01/09/2015, 08/16/2003, Additional history exists Pneumococcal Vaccine: Peds (0 to 5 Years) and At-Risk Patients (6 to 49 Years) Discontinued 08/20/2019, 01/09/2015, 08/16/2003, Additional history exists Insurance [employer] Medicare [employer] Medicare Care Teams Cosmetic Account Coordinator Relationship Specialty Start Date End Date Flakito Reyes MD [address] [place] [address] PCP - General 10/26/20
== END 2025-04-03 11:48 | disposition home or self-care (01) ==
LOC: HO.HKAS 10:50
PROVIDERS: PCP Internal Medicine; Visit Provider Internal Medicine Nephrology
DX: E11.22 Type 2 diabetes mellitus with diabetic chronic kidney disease (principal); N18.4 Chronic kidney disease, stage 4 (severe); I12.9 Hypertensive chronic kidney disease with stage 1 through stage 4 chronic kidney disease, or unspecified chronic kidney disease; N25.81 Secondary hyperparathyroidism of renal origin; E79.0 Hyperuricemia without signs of inflammatory arthritis and tophaceous disease
CPT/HCPCS: 99214

== ENCOUNTER → 2025-04-03 10:49 | Outpatient (BNVA) | payer OTHER, SELFPAY | PROVIDERS: PCP Internal Medicine; Visit Provider Internal Medicine Nephrology | DX: E11.22 Type 2 diabetes mellitus with diabetic chronic kidney disease (principal); N18.4 Chronic kidney disease, stage 4 (severe); N25.81 Secondary hyperparathyroidism of renal origin; I10 Essential (primary) hypertension; E79.0 Hyperuricemia without signs of inflammatory arthritis and tophaceous disease | CPT/HCPCS: 99212 ==

== ENCOUNTER 2025-05-22 11:31 | Outpatient (REF) | payer OTHER, SELFPAY ==
--- OUTSIDE RECORDS SUMMARY | 2025-05-22 12:11 | XMS_ITS | Clinical Summary ---
Author Organization [facility] Address [address] [facility] [address] [place] [address] Phone Care Team Providers Care Material Manager Name Role Phone Flakito Reyes MD Primary Care Provider [phone] Allergies Active Allergy Reactions Criticality Noted Date [...] Visual Foot Exam 11/16/2020 Influenza Vaccine (#1) 2025 Hepatitis B Vaccine Aged Out 08/05/2010, 06/03/2010, 02/10/2010 No longer eligible based on patient's age to complete this topic Pneumococcal Vaccine: 50+ Years Completed 08/20/2019, 01/09/2015, 08/16/2003, Additional history exists Pneumococcal Vaccine: Peds (0 to 5 Years) and At-Risk Patients (6 to 49 Years) Discontinued 08/20/2019, 01/09/2015, 08/16/2003, Additional history exists Insurance [employer] Medicare [employer] Medicare Care Teams Material Manager Relationship Specialty Start Date End Date Flakito Reyes MD [address] [place] [address] PCP - General 10/26/20
--- OUTSIDE RECORDS SUMMARY | 2025-05-22 12:11 | XMS_ITS | Clinical Summary ---
Author Organization [address] [place] [address] [place] [phone] Phone Care Team Providers Care Lower School Music Teacher Name Role Phone Flakito Reyes MD Primary Care Provider [phone] Allergies Active Allergy Reactions Criticality Noted Date Comments Acetaminophen 01/25/2024 Diazepam Other 12/12/2023 valium Morphine 12/12/2023 Oxycodone 01/25/2024 Oxycodone-Acetaminophen 12/12/2023 Penicillins 01/25/2024 Risperidone 01/25/2024 Medications apixaban (ELIQUIS) 5 mg tablet Take 1 tablet (5 mg total) by mouth 2 (two) times a day. Active vit B complx/folic acid/lysine (B COMPLEX VITAMINS PO) Take by mouth. Active cholecalciferol (VITAMIN D-3) 1,250 mcg (50,000 [...] mouth 2 (two) times a day. Active torsemide (DEMADEX) 20 mg tablet Take [...] with preserved ejection fraction, unspecified HF chronicity ([facility] V24, CMS/[facility] V28),Coronary artery disease due to lipid rich plaque [...] [place] 180 tablet 1 5 Active carvediloL (COREG) 25 mg tablet TOME 1 TABLETA POR VIA ORAL DOS VECES AL REBEL CON LAS COMIDAS 180 tablet 3 5 Active spironolactone (ALDACTONE) 25 mg tablet TOME 1 TABLETA POR VIA ORAL TODOS [place] 90 tablet 2 5 Active Active Problems Problem Noted Date Diagnosed Date Coronary artery disease of n ative artery of [place] heart with stable angina pectoris ([facility] V24) 09/05/2024 Assessment & Plan (11/18/2024 9:11 AM [...] carotid bilateral; Future (HFpEF) heart failure with p reserved ejection fraction (CMS/HCC V24, CMS/HCC V28) 02/12/2024 Assessment & Plan (11/18/2024 9:11 AM [...] 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 [...] heart failure with left ventricular diastolic dysfunction (CMS/HCC V24, CMS/HCC V28) 01/25/2024 Overview (07/13/2024): Last Assessment & Plan: [...] 01/25/2024 Overview (07/13/2024): WITHOUT STENOSIS Atrial fibrillation (CMS/HCC V24, CMS/HCC V28) 0 01/25/2024 Overview (07/13/2024): Last Assessment & Plan: [...] routine aerobic exercise as tolerated. Respiratory failure (CMS/HCC V24, CMS/HCC V28) 0 01/25/2024 SOB (shortness of breath) 01/25/2024 Encounters Date Type Department Care Team Description 04/01/2025 3:30 PM EDT Office Visit [facility] - [address] [place] [address] Sachin Dial MD Atrial fibrillation, unspecified type (CMS/HCC V24, CMS/HCC V28) (Primary Dx); Hypertension, unspecified type; Chronic heart failure with preserved ejection fraction (CMS/HCC V24, CMS/HCC V28) from Last 3 Months Surgical History Surgery Date Site/Laterality Comments CARDIAC CATHETERIZATION DONE ON 07/04/2024 AT [facility] INDICATIONS:ABNORMAL STRESS TEST Medical History Medical History Date Comments Acute on chronic congestive heart failure with left ventricular diastolic dysfunction (CMS/HCC V24, CMS/HCC V28) Atrial fibrillation (CMS/HCC V24, CMS/HCC V28) HTN (hypertension) Aortic valve sclerosis Heart failure with preserved ejection fraction (CMS/HCC V24, CMS/HCC V28) HLD (hyperlipidemia) Chest pain SOB (shortness of breath) Hx of respiratory failure Family History Medical History Relation Name Comments [place] Father Diabetes Other HLD Other Hypertension Other [...] Sign Reading Time Taken Comments Blood Pressure 140/66 04/01/2025 3:35 PM EDT Pulse 58 04/01/2025 3:35 PM EDT Temperature 36.5 C (97.7 F) 01/07/2025 11:41 AM EDT Respiratory Rate - - Oxygen Saturation 98% 04/01/2025 3:35 PM EDT Inhaled Oxygen Concentration - - Weight 88.9 kg (196 lb) 04/01/2025 3:35 PM EDT Height 170.2 cm (5' 7 ) 04/01/2025 3:35 PM EDT Body Mass Index 30.7 04/01/2025 3:35 PM EDT Plan of Treatment Upcoming Encounters Date Type Department Care Team (Late st Contact Info) Description 07/08/2025 1:00 PM EDT Office Visit General Surgery - [place] [address] [facility] [address] [place] [phone] Shirley Tarango MD [address] [facility] [address] [place] [address] Health Maintenance Due Date Last Done Comments Diabetes: Annual Foot Exam 1962 Diabetes: Annual Retina Eye Exam 1962 RSV Immunization Adult Patients (1 - Risk 60-74 years 1-dose series) 2012 Colorectal Cancer Screening: Colonoscopy 05/14/2024 Falls Risk Assessment 05/14/2024 Hepatitis C Screening 05/14/2024 Medicare Annual Wellness Visit 05/14/2024 Social Influencers of Health Screening 05/14/2024 COVID-19 Vaccine ( season) 2024 09/15/2023, 02/24/2022, 08/29/2021, Additional history exists Diabetes: Annual Urine Albumin-Creatinine Ratio (uACR) 09/05/2024 Diabetes: Blood Sugar Control Test (HGBA1C) 09/05/2024 Depression Screening 10/16/2024 Influenza Vaccine (#1) 2025 , 02/22/2024, 10/18/2023, Additional history exists Diabetes: Annual GFR (Glomerular Filtration Rate) 07/08/2025 [...] Completed 02/22/2024, 08/20/2019, 01/09/2015, Additional history exists HIB Vaccines Aged Out [...] age to complete this topic Meningococcal B Vaccine Aged Out No l onger eligible based on patient's age to complete [...] artery disease due to lipid rich plaque ANNUAL BMP BLOOD TEST Routine 07/08/2024 from Last 3 Months or Most Recently Relevant to Health Maintenance Results * (ABNORMAL) Lipid panel with reflex to direct LDL (10/14/2024 9:58 AM EST) Cholesterol 128 0 - 200 mg/dL LAB CHEMISTRY METHOD 10/14/2024 4:26 PM EST [facility] Triglycerides 208(H) 0 - 150 mg/dL LAB CHEMISTRY METHOD 10/14/2024 4:26 PM EST [facility] HDL 36(L) >=40 mg/dL LAB CHEMISTRY METHOD 10/14/2024 4:26 PM EST [facility] LDL Calculated 50 0 - 100 mg/dL LAB CHEMISTRY METHOD 10/14/2024 4:26 PM [facility] VLDL Cholesterol Jj 41.6 mg/dL LAB CHEMISTRY METHOD 10/14/2024 4:26 PM EST [facility] Non HDL Chol. (LDL+VLDL) 92 <145 mg/dL LAB CHEMISTRY METHOD 10/14/2024 4:26 PM EST [facility] Chol/HDL Ratio 3.6 0.0 - 4.4 LAB CHEMISTRY METHOD 10/14/2024 4:26 PM EST [facility] Blood Venous blood specimen / Unknown Venipuncture / Unknown 10/14/2024 9:58 AM EST 10/14/2024 9:58 AM EST Mar Jones MILL WORK LAB BLOOD ORDERABLES F inal Result [facility] [address] [place] [address], [place] [phone] * Annual BMP Blood Test (07/08/2024) Pathologist [facility] Annual BMP Blood Test abstracted Historical Provider HEALTH MAINTENANCE Final Result from Last 3 Months or Most Recently Relevant to Health Maintenance Insurance [employer] Care Teams Lower School Music Teacher Relationship Specialty Start Date End Date Flakito Reyes MD [address] [place] [id number] PCP - General 01/03/24
[2025-05-22 18:11] LABS: Anion Gap 13 (12-20); Blood Urea Nitrogen 60 mg/dL (9-16); Calcium 9.3 mg/dL (8.4-10.2); Carbon Dioxide 24 mmol/L (22-29); Chloride 107 mmol/L (96-108); Estimated Glomerular Filt Rate 16; Potassium 4.1 mmol/L (3.3-5.1); Sodium 140 mmol/L (135-145)
== END 2025-05-22 11:32 | disposition home or self-care (01) ==
LOC: HO.HKASLDS 11:31
PROVIDERS: Visit Provider Internal Medicine Nephrology
DX: E11.22 Type 2 diabetes mellitus with diabetic chronic kidney disease (principal); N18.4 Chronic kidney disease, stage 4 (severe); I12.9 Hypertensive chronic kidney disease with stage 1 through stage 4 chronic kidney disease, or unspecified chronic kidney disease; E79.0 Hyperuricemia without signs of inflammatory arthritis and tophaceous disease; N25.81 Secondary hyperparathyroidism of renal origin
CPT/HCPCS: 36415; 80051; 82310; 82565; 84520

== ENCOUNTER 2025-05-27 14:45 | Outpatient (REF) | payer OTHER, SELFPAY ==
--- OUTSIDE RECORDS SUMMARY | 2025-05-27 15:37 | XMS_ITS | Clinical Summary ---
Author Organization [address] [place] [address] [place] [phone] Phone Care Team Providers Care Plodding Machine Operator Name Role Phone Flakito Reyes MD Primary Care Provider [phone] Allergies Active Allergy Reactions Criticality Noted Date [...] unspecified HF chronicity ([facility] V24, CMS/[facility] V28),Coronary artery disease due to [...] artery disease of n ative artery of [place] heart with stable angina pectoris ([facility] V24) 09/05/2024 Assessment & Plan [...] 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 [...] Description 04/01/2025 3:30 PM EDT Office Visit [facility] - [address] [place] [address] Sachin Dial MD Atrial fibrillation, unspecified type (CMS/HCC V24, CMS/HCC V28) (Primary Dx); Hypertension, unspecified type; Chronic heart failure with preserved ejection fraction (CMS/HCC V24, CMS/HCC V28) from Last 3 Months Surgical History Surgery Date Site/Laterality Comments CARDIAC CATHETERIZATION DONE ON 07/04/2024 AT [facility] INDICATIONS:ABNORMAL STRESS TEST Medical History Medical [...] Family History Medical History Relation Name Comments [place] Father Diabetes Other HLD Other Hypertension Other [...] PM EDT Office Visit General Surgery - [place] [address] [facility] [address] [place] [phone] Shirley Taranog MD [address] [facility] [address] [place] [address] Health Maintenance Due Date Last Done Comments [...] LAB CHEMISTRY METHOD 10/14/2024 4:26 PM EST [facility] Triglycerides 208(H) 0 - 150 mg/dL LAB CHEMISTRY METHOD 10/14/2024 4:26 PM EST [facility] HDL 36(L) >=40 mg/dL LAB CHEMISTRY METHOD 10/14/2024 4:26 PM EST [facility] LDL Calculated 50 0 - 100 mg/dL LAB CHEMISTRY METHOD 10/14/2024 4:26 PM [facility] VLDL Cholesterol Jj 41.6 mg/dL LAB CHEMISTRY METHOD 10/14/2024 4:26 PM EST [facility] Non HDL Chol. (LDL+VLDL) 92 <145 mg/dL LAB CHEMISTRY METHOD 10/14/2024 4:26 PM EST [facility] Chol/HDL Ratio 3.6 0.0 - 4.4 LAB CHEMISTRY METHOD 10/14/2024 4:26 PM EST [facility] Blood Venous blood specimen / Unknown Venipuncture / Unknown 10/14/2024 9:58 AM EST 10/14/2024 9:58 AM EST Mar Jones PATIENT RELATIONS REPRESENTATIVE LAB BLOOD ORDERABLES F inal Result [facility] [address] [place] [address], [place] [phone] * Annual BMP Blood Test (07/08/2024) Pathologist [facility] Annual BMP Blood Test abstracted Historical Provider HEALTH MAINTENANCE Final Result from Last 3 Months or Most Recently Relevant to Health Maintenance Insurance [employer] Care Teams Plodding Machine Operator Relationship Specialty Start Date End Date Flakito Reyes MD [address] [place] [id number] PCP - General 01/03/24
--- OUTSIDE RECORDS SUMMARY | 2025-05-27 15:37 | XMS_ITS | Clinical Summary ---
Author Organization [facility] Address [address] [facility] [address] [place] [address] Phone Care Team Providers Care Brim Buster Name Role Phone Flakito Reyes MD Primary Care Provider [phone] Allergies Active Allergy Reactions Criticality Noted Date [...] Health Medicare [employer] Medicare Care Teams Brim Buster Relationship Specialty Start Date End Date Flakito Reyse MD [address] [place] [address] PCP - General 10/26/20
[2025-05-27 17:41] LABS: Appearance Urine Clear; Glucose Urine UA 500 mg/dL (Negative); PH 5.5 (5.0-9.0); Specific Gravity - Urine 1.010 (1.005-1.025); UMIC TRIGGER UACC YES
[2025-05-27 17:57] LABS: MANUAL DIFF FLAG NO
[2025-05-27 18:01] LABS: Hematocrit 32.3 % (42.0-52.0); Hemoglobin 10.4 g/dl (14.0-18.0); Imm Gran Abs Auto 0.02 X10*3/uL (0.00-0.03); Imm Gran Pct Auto 0.3 % (0.0-0.4); Lymphocytes Absolute Auto 1.3 X10*3/uL (1.2-4.9); Mean Corpuscular HGB Conc 32.2 g/dl (31.0-36.0); Mean Corpuscular Hemoglobin 30.5 pg (27.0-33.0); Mean Corpuscular Volume 94.7 fL (80.0-98.0); NRBC Abs Auto 0.000 X10*3/uL (0.0-0.012); NRBC Pct Auto 0.0 /100WBC (0.0-0.2); Platelet Count 212 X10*3/uL (160-400); Red Blood Count 3.41 X10*6/uL (4.60-5.80); White Blood Count 5.7 X10*3/uL (4.8-10.8)
[2025-05-27 18:34] LABS: Anion Gap 16 (12-20); Blood Urea Nitrogen 56 mg/dL (9-16); Calcium 9.7 mg/dL (8.4-10.2); Carbon Dioxide 23 mmol/L (22-29); Chloride 105 mmol/L (96-108); Estimated Glomerular Filt Rate 20; Magnesium 2.7 mg/dL (1.6-2.6); Potassium 4.8 mmol/L (3.3-5.1); Sodium 139 mmol/L (135-145); Uric Acid 5.9 mg/dL (3.4-7.0)
[2025-05-27 18:44] LABS: Protein/Creatinine Ratio, Ur 1.87 (<0.2); Total Protein Urine Random 50 mg/dL (<12)
[2025-05-27 18:46] LABS: Parathyroid Hormone Intact 587.8 pg/mL (8.7-77.1)
== END 2025-05-27 14:46 | disposition home or self-care (01) ==
LOC: HO.HKASLDS 14:45
PROVIDERS: Nurse Practitioner Family; Visit Provider Internal Medicine Nephrology
DX: E11.22 Type 2 diabetes mellitus with diabetic chronic kidney disease (principal); I12.9 Hypertensive chronic kidney disease with stage 1 through stage 4 chronic kidney disease, or unspecified chronic kidney disease; N18.4 Chronic kidney disease, stage 4 (severe); N25.81 Secondary hyperparathyroidism of renal origin; N17.9 Acute kidney failure, unspecified; E79.0 Hyperuricemia without signs of inflammatory arthritis and tophaceous disease
CPT/HCPCS: 36415; 80048; 81001; 82306; 82570; 83735; 83970; 84156; 84550; 85025

== ENCOUNTER 2025-06-05 14:34 | Outpatient (AMB) | payer OTHER, SELFPAY ==
--- OUTSIDE RECORDS SUMMARY | 2025-06-05 14:40 | XMS_ITS | Clinical Summary ---
Author Organization [facility] Address [address] [facility] [address] [place] [address] Phone Care Team Providers Care Track Grinder Operator Name Role Phone Flakito Reyes MD Primary Care Provider [phone] Allergies Active Allergy Reactions Criticality Noted Date [...] Health Medicare [employer] Medicare Care Teams Track Grinder Operator Relationship Specialty Start Date End Date Flakito Reyes MD [address] [place] [address] PCP - General 10/26/20
--- OUTSIDE RECORDS SUMMARY | 2025-06-05 14:40 | XMS_ITS | Clinical Summary ---
Author Organization [address] [place] [address] [place] [phone] Phone Care Team Providers Care Staff Midwife/Apprenticeship Director Name Role Phone Flakito Reyes MD Primary Care Provider [phone] Allergies Active Allergy Reactions Criticality Noted Date [...] with preserved ejection fraction, unspecified HF chronicity ([facility] V24, CMS/[facility] V28),Coronary artery disease due to lipid rich [...] artery disease of n ative artery of [place] heart with stable angina pectoris ([facility] V24) 09/05/2024 Assessment & Plan (11/18/2024 9:11 [...] 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 [...] Description 04/01/2025 3:30 PM EDT Office Visit [facility] [address] [place] [address] Sachin Dial MD Atrial fibrillation, unspecified type (CMS/HCC V24, CMS/HCC V28) (Primary Dx); Hypertension, unspecified type; Chronic heart failure with preserved ejection fraction (CMS/HCC V24, CMS/HCC V28) from Last 3 Months Surgical History Surgery Date Site/Laterality Comments CARDIAC CATHETERIZATION DONE ON 07/04/2024 AT [facility] INDICATIONS:ABNORMAL STRESS TEST Medical History Medical History [...] PM EDT Office Visit General Surgery - [place] [address] [facility] [address] [place] [phone] Shirley Tarango MD [address] [facility] [address] [place] [address] Health Maintenance Due Date Last Done Comments [...] LAB CHEMISTRY METHOD 10/14/2024 4:26 PM EST [facility] Triglycerides 208(H) 0 - 150 mg/dL LAB CHEMISTRY METHOD 10/14/2024 4:26 PM EST [facility] HDL 36(L) >=40 mg/dL LAB CHEMISTRY METHOD 10/14/2024 4:26 PM EST [facility] LDL Calculated 50 0 - 100 mg/dL LAB CHEMISTRY METHOD 10/14/2024 4:26 PM [facility] VLDL Cholesterol Jj 41.6 mg/dL LAB CHEMISTRY METHOD 10/14/2024 4:26 PM EST [facility] Non HDL Chol. (LDL+VLDL) 92 <145 mg/dL LAB CHEMISTRY METHOD 10/14/2024 4:26 PM EST [facility] Chol/HDL Ratio 3.6 0.0 - 4.4 LAB CHEMISTRY METHOD 10/14/2024 4:26 PM EST [facility] Blood Venous blood specimen / Unknown Venipuncture / Unknown 10/14/2024 9:58 AM EST 10/14/2024 9:58 AM EST Mar Jones SCALE OPERATOR LAB BLOOD ORDERABLES F inal Result [facility] [address] [place] [address], [place] [phone] * Annual BMP Blood Test (07/08/2024) Pathologist [facility] Annual BMP Blood Test abstracted Historical Provider HEALTH MAINTENANCE Final Result from Last 3 Months or Most Recently Relevant to Health Maintenance Insurance [employer] Care Teams Staff Midwife/Apprenticeship Director Relationship Specialty Start Date End Date Flakito Reyes MD [address] [place] [id number] PCP - General 01/03/24
--- NOTE | 2025-06-05 14:47 | HO.NEPHOV ---
Vital Signs 06/05/25 14:53 Height 5 ft 7 in Weight 207 lb 8 oz BMI 32.5 BP 140/76 H Blood Pressure Location Lt brachial Position Sitting Pulse 61 Pulse Source Pulse Oximeter Pulse Oximetry (%) 97 Oxygen Delivery Method Room Air Intake Visit Reasons: Sooner appt-Per [facility] Jet Dyeing Machine Operator Required: No Accompanied by: Spouse Allergies NSAIDS (Non-Steroidal Anti-Inflamma Allergy (Verified 06/05/25 14:52) Unknown Penicillins Allergy (Verified 06/05/25 14:52) Rash acetaminophen (From Percocet) Adverse Reaction (Verified 06/05/25 14:52) Anxiety diazepam (From Valium) Adverse Reaction (Verified 06/05/25 14:52) Swelling oxycodone (From Percocet) Adverse Reaction (Verified 06/05/25 14:52) Anxiety risperidone (From Risperdal) Adverse Reaction (Verified 06/05/25 14:52) Unknown spironolactone Adverse Reaction (Verified 06/05/25 14:52) Unknown HPI Comments Details: Rogers was seen in follow-up for his chronic kidney disease. 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 He was taking nonsteroidal anti-inflammatories in the past which has been discontinued. He has no hypoglycemia. He had congestive heart failure in January of 2024. Echocardiogram done at that time showed hyperdynamic LV systolic function with no significant regional wall motion abnormality, indeterminate LV diastolic dysfunction due to atrial fibrillation, normal RV systolic function and size with biatrial enlargement. He denies any chest pain, nausea, vomiting, diarrhea. His weight is stable. He is compliant with his medications and low-sodium diet. His blood sugars have been better. He has been having breast tenderness since he is on Spironolactone. He recently had AMANDA which is better [facility] Medical History (Updated 06/05/25 @ 18:18 by Brian Castano MD) Varicose vein of leg Ulnar neuropathy Restless leg syndrome Obesity Peptic ulcer disease Pedal edema Osteoarthritis HOLLIS (obstructive sleep apnea) New onset tinnitus of right ear Lumbosacral spondylolysis Lumbar radiculopathy Hypertension Hyperlipidemia Hiatal hernia Flexor tenosynovitis of finger Erectile dysfunction Drug-induced gynecomastia Diastasis recti Diabetic neuropathy Diabetes mellitus, type II Coronary artery disease Chronic kidney disease, stage 3a Chronic back pain Carpal tunnel syndrome Carotid artery stenosis Bilateral inguinal hernia Angle-closure glaucoma Surgical History History of coronary artery stent placement Social History Alcohol intake: never Patient Tobacco Use Status: Never used Tobacco Review of Systems Const All systems reviewed & are unremarkable except as noted in HPI and below Physical Exam Vital Signs: Last Vital Signs Pulse 61 06/05/25 14:53 BP 164/76 H 06/05/25 14:53 Pulse Ox 97 06/05/25 14:53 Oxygen Delivery Method Room Air 06/05/25 14:53 BMI result Body Mass Index 32.5 Const General: comfortable and no acute distress Orientation/consciousness: patient oriented x3 HEENT Head: Yes normocephalic Mouth: Normal oral and palatal mucosa present Eyes EOM: EOMs intact bilaterally Neck Neck: Yes supple Resp Auscultation: clear to auscultation bilaterally Cardio Jugular venous distension: no JVD Rate: regular rate GI Palpation (GI): Soft to palpation Auscultation: normal bowel sounds General: Yes no CVA tenderness Back/Spine/Pelvis Back: no CVA tenderness Skin General skin exam: no rashes or lesions noted Neuro General: patient oriented x3 and moves all extremities Extrem General: Yes no pedal edema Results Reviewed Nephrology Results: Hgb, (14.0-18.0) 10.4 g/dl L 05/27/25 WBC, (4.8-10.8) 5.7 X10*3/uL 05/27/25 Plt Count, (160-400) 212 X10*3/uL 05/27/25 Sodium, (135-145) 139 mmol/L 05/27/25 Potassium, (3.3-5.1) 4.8 mmol/L 05/27/25 Chloride, (96-108) 105 mmol/L 05/27/25 Carbon Dioxide, (22-29) 23 mmol/L 05/27/25 BUN, (9-16) 56 mg/dL H 05/27/25 Creatinine, (0.5-1.4) 3.07 mg/dL H 05/27/25 Calcium, (8.4-10.2) 9.7 mg/dL 05/27/25 Phosphorus, (2.7-4.5) 3.6 mg/dL 11/14/24 PTH Intact, (8.7-77.1) 587.8 pg/mL H 05/27/25 Urine Protein, (Neg-Trace) 100 (2+) mg/dL H 05/27/25 Urine Creatinine 26.73 mg/dL 05/27/25 Protein/Creatinin Ratio, (<0.2) 1.87 H 05/27/25 Assessment & Plan Assessment & Plan (1) Hypertension: Code(s): I10 - Essential (primary) hypertension Category: Medical Qualifiers: Hypertension type: primary hypertension Qualified Code(s): I10 - Essential (primary) hypertension (2) CKD stage 4 due to type 2 diabetes mellitus: Code(s): E11.22 - Type 2 diabetes mellitus with diabetic chronic kidney disease; N18.4 - Chronic kidney disease, stage 4 (severe) Category: Medical (3) Anemia in chronic kidney disease (CKD): Code(s): N18.9 - Chronic kidney disease, unspecified; D63.1 - Anemia in chronic kidney disease Category: Medical Qualifiers: Chronic kidney disease stage: stage 4 (GFR 15-29) Qualified Code(s): N18.4 - Chronic kidney disease, stage 4 (severe); D63.1 - Anemia in chronic kidney disease (4) Secondary hyperparathyroidism of renal origin: Code(s): N25.81 - Secondary hyperparathyroidism of renal origin Category: Medical (5) Hyperuricemia: Code(s): E79.0 - Hyperuricemia without signs of inflammatory arthritis and tophaceous disease Category: Medical Plan Rogers has diabetic nephropathy. He has history of AMANDA needing one treatment with hemodialysis. He recently had AMANDA which has better. I D/Remington his Spironolactone given he has breast tenderness. He is on torsemide. His blood pressure is at goal. He keeps up with his CPAP. Sestamibi scan was done in the past which showed parathyroid adenoma and has seen by [facility]. He also has history of carotid stenosis and hyperuricemia. He can continue Allopurinol 100 mg daily . He can continue Jardiance 25 mg daily . He will need activated vitamin D soon. He should continue low-sodium diet and weigh himself daily. I prescribed him Magnesium and encouraged him to take tonic water for his leg cramps. He should avoid nonsteroidal anti-inflammatories. All these have been explained in detail to him and his . Follow-up appointment given Orders: Orders Blood Urea Nitrogen 2 Months E11.22 - Type 2 diabetes mellitus with diabetic chronic kidney disease, I10 - Essential (primary) hypertension, N18.4 - Chronic kidney disease, stage 4 (severe) Electrolytes 2 Months E11.22 - Type 2 diabetes mellitus with diabetic chronic kidney disease, I10 - Essential (primary) hypertension, N18.4 - Chronic kidney disease, stage 4 (severe) Creatinine 2 Months E11.22 - Type 2 diabetes mellitus with diabetic chronic kidney disease, I10 - Essential (primary) hypertension, N18.4 - Chronic kidney disease, stage 4 (severe) Coding Level of Care Code Est Pt Level 4 (95404) Diagnoses Primary hypertension I10 Hypertension type: primary hypertension CKD stage 4 due to type 2 diabetes mellitus E11.22; N18.4 Anemia in stage 4 chronic kidney disease N18.4; D63.1 Chronic kidney disease stage: stage 4 (GFR 15-29) Secondary hyperparathyroidism of renal origin N25.81 Hyperuricemia E79.0
[2025-06-05 14:53] VITALS: BP 140/76; PULSE 61; O2SAT 97; BMI 32.5
== END 2025-06-05 15:07 | disposition home or self-care (01) ==
LOC: HO.HKAS 14:34
PROVIDERS: PCP Internal Medicine; Visit Provider Internal Medicine Nephrology
DX: I12.9 Hypertensive chronic kidney disease with stage 1 through stage 4 chronic kidney disease, or unspecified chronic kidney disease (principal); E11.22 Type 2 diabetes mellitus with diabetic chronic kidney disease; N18.4 Chronic kidney disease, stage 4 (severe); D63.1 Anemia in chronic kidney disease; N25.81 Secondary hyperparathyroidism of renal origin; E79.0 Hyperuricemia without signs of inflammatory arthritis and tophaceous disease
CPT/HCPCS: 99214

== ENCOUNTER → 2025-06-05 14:34 | Outpatient (BNVA) | payer OTHER, SELFPAY | PROVIDERS: PCP Internal Medicine; Visit Provider Internal Medicine Nephrology | DX: I12.9 Hypertensive chronic kidney disease with stage 1 through stage 4 chronic kidney disease, or unspecified chronic kidney disease (principal); E11.22 Type 2 diabetes mellitus with diabetic chronic kidney disease; E11.21 Type 2 diabetes mellitus with diabetic nephropathy; N18.4 Chronic kidney disease, stage 4 (severe); D63.1 Anemia in chronic kidney disease; R80.9 Proteinuria, unspecified; N25.81 Secondary hyperparathyroidism of renal origin; E79.0 Hyperuricemia without signs of inflammatory arthritis and tophaceous disease | CPT/HCPCS: 99212 ==

== ENCOUNTER 2025-06-26 15:01 | Outpatient (REF) | payer OTHER, SELFPAY ==
[2025-06-26 17:41] LABS: Appearance Urine Clear; Glucose Urine UA 100 mg/dL (Negative); PH 5.5 (5.0-9.0); Specific Gravity - Urine 1.010 (1.005-1.025); UMIC TRIGGER UACC YES
[2025-06-26 18:00] LABS: Anion Gap 13 (12-20); Blood Urea Nitrogen 52 mg/dL (9-16); Calcium 9.8 mg/dL (8.4-10.2); Carbon Dioxide 25 mmol/L (22-29); Chloride 108 mmol/L (96-108); Estimated Glomerular Filt Rate 21; Potassium 4.0 mmol/L (3.3-5.1); Sodium 142 mmol/L (135-145)
--- OUTSIDE RECORDS SUMMARY | 2025-06-26 18:28 | XMS_ITS | Clinical Summary ---
Author Organization [facility] Address [address] [facility] [address] [place] [address] Phone Care Team Providers Care Optical Laboratory Mechanic Name Role Phone Flakito Reyes MD Primary Care Provider [phone] Allergies Active Allergy Reactions Criticality Noted Date [...] Health Medicare [facility] [employer] Medicare Care Teams Optical Laboratory Mechanic Relationship Specialty Start Date End Date Flakito Reyes MD [address] [place] [address] PCP - General 10/26/20
== END 2025-06-26 15:02 | disposition home or self-care (01) ==
LOC: HO.HKASLDS 15:01
PROVIDERS: Nurse Practitioner Family; Visit Provider Internal Medicine Nephrology
DX: E11.22 Type 2 diabetes mellitus with diabetic chronic kidney disease (principal); I12.9 Hypertensive chronic kidney disease with stage 1 through stage 4 chronic kidney disease, or unspecified chronic kidney disease; N18.4 Chronic kidney disease, stage 4 (severe); E79.0 Hyperuricemia without signs of inflammatory arthritis and tophaceous disease; N25.81 Secondary hyperparathyroidism of renal origin; N17.9 Acute kidney failure, unspecified
CPT/HCPCS: 36415; 80051; 81001; 82310; 82565; 84520

== ENCOUNTER 2025-07-03 13:36 | Outpatient (AMB) | payer OTHER, SELFPAY ==
--- NOTE | 2025-07-03 13:55 | HO.NEPHOV_ITS ---
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 [employer] Required: No Accompanied by: Spouse Allergies NSAIDS (Non-Steroidal Anti-Inflamma Allergy (Verified 07/03/25 13:58) Unknown Penicillins Allergy (Verified 07/03/25 13:58) Rash acetaminophen (From Percocet) Adverse Reaction (Verified 07/03/25 13:58) Anxiety diazepam (From Valium) Adverse Reaction (Verified 07/03/25 13:58) Swelling oxycodone (From Percocet) Adverse Reaction (Verified 07/03/25 13:58) Anxiety risperidone (From Risperdal) Adverse Reaction (Verified 07/03/25 13:58) Unknown spironolactone Adverse Reaction (Verified 07/03/25 13:58) Unknown HPI Comments Details: Rogers was seen in follow-up for his chronic kidney disease. 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 He has no hypoglycemia. He had congestive heart failure in January of 2024. Echocardiogram done at that time showed hyperdynamic LV systolic function with no significant regional wall motion abnormality, indeterminate LV diastolic dysfunction due to atrial fibrillation, normal RV systolic function and size with biatrial enlargement. He denies any chest pain, nausea, vomiting, diarrhea. His weight is stable. He is compliant with his medications and low-sodium diet. His blood sugars have been better. He recently had AMANDA which is better [facility] Medical History (Updated 06/05/25 @ 18:18 by Brian Castano MD) Varicose vein of leg Ulnar neuropathy Restless leg syndrome Obesity Peptic ulcer disease Pedal edema Osteoarthritis HOLLIS (obstructive sleep apnea) New onset tinnitus of right ear Lumbosacral spondylolysis Lumbar radiculopathy Hypertension Hyperlipidemia Hiatal hernia Flexor tenosynovitis of finger Erectile dysfunction Drug-induced gynecomastia Diastasis recti Diabetic neuropathy Diabetes mellitus, type II Coronary artery disease Chronic kidney disease, stage 3a Chronic back pain Carpal tunnel syndrome Carotid artery stenosis Bilateral inguinal hernia Angle-closure glaucoma Surgical History History of coronary artery stent placement Social History Alcohol intake: never Patient Tobacco Use Status: Never used Tobacco Review of Systems Const All systems reviewed & are unremarkable except as noted in HPI and below Physical Exam Vital Signs: Last Vital Signs Pulse 69 07/03/25 13:58 BP 130/70 07/03/25 13:58 Pulse Ox 97 07/03/25 13:58 Oxygen Delivery Method Room Air 07/03/25 13:58 BMI result Body Mass Index 33.1 Const General: comfortable and no acute distress Orientation/consciousness: patient oriented x3 HEENT Head: Yes normocephalic Mouth: Normal oral and palatal mucosa present Eyes EOM: EOMs intact bilaterally Neck Neck: Yes supple Resp Auscultation: clear to auscultation bilaterally Cardio Jugular venous distension: no JVD Rate: regular rate GI Palpation (GI): Soft to palpation Auscultation: normal bowel sounds General: Yes no CVA tenderness Back/Spine/Pelvis Back: no CVA tenderness Skin General skin exam: no rashes or lesions noted Neuro General: patient oriented x3 and moves all extremities Extrem General: Yes no pedal edema Results Reviewed Nephrology Results: Hgb, (14.0-18.0) 10.4 g/dl L 05/27/25 WBC, (4.8-10.8) 5.7 X10*3/uL 05/27/25 Plt Count, (160-400) 212 X10*3/uL 05/27/25 Sodium, (135-145) 142 mmol/L 06/26/25 Potassium, (3.3-5.1) 4.0 mmol/L 06/26/25 Chloride, (96-108) 108 mmol/L 06/26/25 Carbon Dioxide, (22-29) 25 mmol/L 06/26/25 BUN, (9-16) 52 mg/dL H 06/26/25 Creatinine, (0.5-1.4) 2.93 mg/dL H 06/26/25 Calcium, (8.4-10.2) 9.8 mg/dL 06/26/25 PTH Intact, (8.7-77.1) 587.8 pg/mL H 05/27/25 Urine Protein, (Neg-Trace) 300 (3+) mg/dL H 06/26/25 Urine Creatinine 26.73 mg/dL 05/27/25 Protein/Creatinin Ratio, (<0.2) 1.87 H 05/27/25 Assessment & Plan Assessment & Plan (1) CKD stage 4 due to type 2 diabetes mellitus: Code(s): E11.22 - Type 2 diabetes mellitus with diabetic chronic kidney disease; N18.4 - Chronic kidney disease, stage 4 (severe) Category: Medical (2) Anemia in chronic kidney disease (CKD): Code(s): N18.9 - Chronic kidney disease, unspecified; D63.1 - Anemia in chronic kidney disease Category: Medical Qualifiers: Chronic kidney disease stage: stage 4 (GFR 15-29) Qualified Code(s): N18.4 - Chronic kidney disease, stage 4 (severe); D63.1 - Anemia in chronic kidney disease (3) Secondary hyperparathyroidism of renal origin: Code(s): N25.81 - Secondary hyperparathyroidism of renal origin Category: Medical (4) Hypertension: Code(s): I10 - Essential (primary) hypertension Category: Medical Qualifiers: Hypertension type: primary hypertension Qualified Code(s): I10 - Es sential (primary) hypertension Plan Rogers has diabetic nephropathy. He has history of AMANDA needing one treatment with hemodialysis. He recently had AMANDA which has better. I D/Remington his Spironolactone in the past given he had breast tenderness. He is on torsemide. His blood pressure is at goal. He keeps up with his CPAP. Sestamibi scan was done in the past which showed parathyroid adenoma and has seen by [facility]. He also has history of carotid stenosis and hyperuricemia. He can continue Allopurinol 100 mg daily as well as Jardiance 25 mg daily . He will need activated vitamin D soon. He should continue low-sodium diet and weigh himself daily. I prescribed him Magnesium and encouraged him to take tonic water for his leg cramps. He should avoid nonsteroidal anti-inflammatories. All these have been explained in detail to him and his . Follow-up appointment given Orders: Orders Creatinine 2 Months E11.22 - Type 2 diabetes mellitus with diabetic chronic kidney disease, N18.4 - Chronic kidney disease, stage 4 (severe) Blood Urea Nitrogen 2 Months E11.22 - Type 2 diabetes mellitus with diabetic chronic kidney disease, N18.4 - Chronic kidney disease, stage 4 (severe) Calcium 2 Months E11.22 - Type 2 diabetes mellitus with diabetic chronic kidney disease, N18.4 - Chronic kidney disease, stage 4 (severe) Parathyroid Hormone Intact 07/03/25 D63.1 - Anemia in chronic kidney disease, N18.4 - Chronic kidney disease, stage 4 (severe), N25.81 - Secondary hyperparathyroidism of renal origin Electrolytes 2 Months E11. - Type 2 diabetes mellitus with diabetic chronic kidney disease, N18.4 - Chronic kidney disease, stage 4 (severe) Phosphorus 2 Months E11.22 - Type 2 diabetes mellitus with diabetic chronic kidney disease, N18.4 - Chronic kidney disease, stage 4 (severe) Complete Blood Count Auto Diff 07/03/25 D63.1 - Anemia in chronic kidney disease, N18.4 - Chronic kidney disease, stage 4 (severe), N25.81 - Secondary hyperparathyroidism of renal origin Coding Level of Care Code Est Pt Level 4 (03771) Diagnoses CKD stage 4 due to type 2 diabetes mellitus E11.; N18.4 Anemia in stage 4 chronic kidney disease N18.4; D63.1 Chronic kidney disease stage: stage 4 (GFR 15-29) Secondary hyperparathyroidism of renal origin N25.81 Primary hypertension I10 Hypertension type: primary hypertension
[2025-07-03 13:58] VITALS: BP 130/70; PULSE 69; O2SAT 97; BMI 33.1
--- OUTSIDE RECORDS SUMMARY | 2025-07-03 15:37 | XMS_ITS | Clinical Summary ---
Author Organization [facility] Address [address] [facility] [address] [place] [address] Phone Care Team Providers Care Supervisor Ditching Name Role Phone Flakito Reyes MD Primary Care Provider [phone] Allergies Active Allergy Reactions Criticality Noted Date [...] Health Medicare [facility] Medicare Care Teams Supervisor Ditching Relationship Specialty Start Date End Date Flakito Reyes MD [address] [place] [address] PCP - General 10/26/20
--- OUTSIDE RECORDS SUMMARY | 2025-07-03 15:37 | XMS_ITS | Clinical Summary ---
Author Organization [address] [place] [address] [place] [phone] Phone Care Team Providers Care Application Software Engineer Name Role Phone Flakito Reyes MD Primary Care Provider [phone] Allergies Active Allergy Reactions Criticality Noted Date [...] with preserved ejection fraction, unspecified HF chronicity ([facility] V24, [facility] V28),Coronary artery disease due to lipid rich [...] artery disease of n ative artery of [place] heart with stable angina pectoris ([facility] V24) 09/05/2024 Assessment & Plan (11/18/2024 9:11 [...] the 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 [...] 0 01/25/2024 SOB (shortness of breath) 01/25/2024 Surgical History Surgery Date Site/Laterality Comments CARDIAC CATHETERIZATION DONE ON 07/04/2024 AT [facility] INDICATIONS:ABNORMAL STRESS TEST Medical History Medical History Date Comments Acute on chronic congestive heart failure with left ventricular diastolic dysfunction ([facility] V24, [facility] V28) Atrial fibrillation ([facility] V24, [facility] V28) HTN (hypertension) Aortic valve sclerosis Heart failure with preserved ejection fraction ([facility] V24, [facility] V28) HLD (hyperlipidemia) Chest pain SOB (shortness of breath) Hx of respiratory failure Family History Medical History Relation Name Comments [place] Father Diabetes Other HLD Other Hypertension Other [...] PM EDT Office Visit General Surgery - [address] [place] [address] Shirley Tarango MD [address] [place] [phone] Health Maintenance Due Date Last Done Comments Diabetes: Annual Foot Exam 1962 Diabetes: Annual Retina Eye Exam 1962 RSV Immunization Adult Patients (1 - Risk 60-74 years 1-dose series) 2012 Colorectal Cancer Screening: Colonoscopy 05/14/2024 Falls Risk Assessment 05/14/2024 Hepatitis C Screening 05/14/2024 Medicare Annual Wellness Visit 05/14/2024 Social Influencers of Health Screening 05/14/2024 Diabetes: Annual Urine Albumin-Creatinine Ratio (uACR) 09/05/2024 Diabetes: Blood Sugar Control Test (HGBA1C) 09/05/2024 Depression Screening 10/16/2024 COVID-19 Vaccine ( season) 2025 09/15/2023, 02/24/2022, 08/29/2021, Additional history exists Influenza Vaccine (#1) 2025 , 02/22/2024, 10/18/2023, [...] 4.4 LAB CHEMISTRY METHOD 10/14/2024 4:[address] [facility] Blood Venous blood specimen / Unknown Venipuncture / Unknown 10/14/2024 9:58 AM EST 10/14/2024 9:58 AM EST us Mar Jones SCHEDULER MAINTENANCE LAB BLOOD ORDERABLES F inal Result [facility] [address] [place] [address], [place] [phone] * Annual BMP Blood Test (07/08/2024) Annual BMP Blood Test abstracted us Historical Provider HEALTH MAINTENANCE Final Result from Last 3 Months or Most Recently Relevant to Health Maintenance Insurance [employer] Care Teams Application Software Engineer Relationship Specialty Start Date End Date Flakito Reyes MD [address] [place] [phone] PCP - General 01/03/24
== END 2025-07-03 14:23 | disposition home or self-care (01) ==
LOC: HO.HKAS 13:36
PROVIDERS: PCP Internal Medicine; Visit Provider Internal Medicine Nephrology
DX: E11.22 Type 2 diabetes mellitus with diabetic chronic kidney disease (principal); N18.4 Chronic kidney disease, stage 4 (severe); D63.1 Anemia in chronic kidney disease; N25.81 Secondary hyperparathyroidism of renal origin; I12.9 Hypertensive chronic kidney disease with stage 1 through stage 4 chronic kidney disease, or unspecified chronic kidney disease
CPT/HCPCS: 99214

== ENCOUNTER → 2025-07-03 13:36 | Outpatient (BNVA) | payer OTHER, SELFPAY | PROVIDERS: PCP Internal Medicine; Visit Provider Internal Medicine Nephrology | DX: E11.22 Type 2 diabetes mellitus with diabetic chronic kidney disease (principal); I12.9 Hypertensive chronic kidney disease with stage 1 through stage 4 chronic kidney disease, or unspecified chronic kidney disease; N18.4 Chronic kidney disease, stage 4 (severe); D63.1 Anemia in chronic kidney disease; N25.81 Secondary hyperparathyroidism of renal origin | CPT/HCPCS: 99212 ==

== ENCOUNTER 2025-07-24 14:28 | Outpatient (REF) | payer OTHER, SELFPAY ==
[2025-07-24 17:48] LABS: MANUAL DIFF FLAG NO
[2025-07-24 18:09] LABS: Hematocrit 34.2 % (42.0-52.0); Hemoglobin 11.4 g/dl (14.0-18.0); Imm Gran Abs Auto 0.04 X10*3/uL (0.00-0.03); Imm Gran Pct Auto 0.5 % (0.0-0.4); Lymphocytes Absolute Auto 1.6 X10*3/uL (1.2-4.9); Mean Corpuscular HGB Conc 33.3 g/dl (31.0-36.0); Mean Corpuscular Hemoglobin 30.6 pg (27.0-33.0); Mean Corpuscular Volume 91.7 fL (80.0-98.0); NRBC Abs Auto 0.000 X10*3/uL (0.0-0.012); NRBC Pct Auto 0.0 /100WBC (0.0-0.2); Platelet Count 238 X10*3/uL (160-400); Red Blood Count 3.73 X10*6/uL (4.60-5.80); White Blood Count 7.7 X10*3/uL (4.8-10.8)
[2025-07-24 18:17] LABS: Anion Gap 13 (12-20); Blood Urea Nitrogen 51 mg/dL (9-16); Carbon Dioxide 24 mmol/L (22-29); Chloride 105 mmol/L (96-108); Estimated Glomerular Filt Rate 19; Potassium 4.6 mmol/L (3.3-5.1); Sodium 137 mmol/L (135-145)
[2025-07-24 18:40] LABS: Parathyroid Hormone Intact 629.5 pg/mL (8.7-77.1)
== END 2025-07-24 14:29 | disposition home or self-care (01) ==
LOC: HO.HKASLDS 14:28
PROVIDERS: PCP Internal Medicine; Visit Provider Internal Medicine Nephrology
DX: I12.9 Hypertensive chronic kidney disease with stage 1 through stage 4 chronic kidney disease, or unspecified chronic kidney disease (principal); E11.22 Type 2 diabetes mellitus with diabetic chronic kidney disease; N18.4 Chronic kidney disease, stage 4 (severe); D63.1 Anemia in chronic kidney disease; N25.81 Secondary hyperparathyroidism of renal origin
CPT/HCPCS: 36415; 80051; 82565; 83970; 84520; 85025

== ENCOUNTER 2025-07-31 14:04 | Outpatient (AMB) | payer OTHER, SELFPAY ==
--- NOTE | 2025-07-31 14:37 | HO.NEPHOV ---
Vital Signs 07/31/25 14:41 Height 5 ft 7 in Weight 207 lb 8 oz BMI 32.5 BP 154/60 H Blood Pressure Location Lt brachial Position Sitting Pulse 66 Pulse Source Pulse Oximeter Pulse Oximetry (%) 98 Oxygen Delivery Method Room Air Intake Visit Reasons: f/u Financial Services Associate Required: No Accompanied by: Spouse Allergies NSAIDS (Non-Steroidal Anti-Inflamma Allergy (Verified 07/31/25 14:40) Unknown Penicillins Allergy (Verified 07/31/25 14:40) Rash acetaminophen (From Percocet) Adverse Reaction (Verified 07/31/25 14:40) Anxiety diazepam (From Valium) Adverse Reaction (Verified 07/31/25 14:40) Swelling oxycodone (From Percocet) Adverse Reaction (Verified 07/31/25 14:40) Anxiety risperidone (From Risperdal) Adverse Reaction (Verified 07/31/25 14:40) Unknown spironolactone Adverse Reaction (Verified 07/31/25 14:40) Unknown HPI Comments Details: Rogers was seen in follow-up for his chronic kidney disease. 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 He has no hypoglycemia. He had congestive heart failure in January of 2024. Echocardiogram done at that time showed hyperdynamic LV systolic function with no significant regional wall motion abnormality, indeterminate LV diastolic dysfunction due to atrial fibrillation, normal RV systolic function and size with biatrial enlargement. He denies any chest pain, nausea, vomiting, diarrhea. His weight is stable. He is compliant with his medications and low-sodium diet. His blood sugars have been better. He recently had been having worsening pedal edema and was seen by his college advisor and was told that its due to renal etiology. [facility] Medical History (Updated 07/31/25 @ 22:15 by Brian Castano MD) Varicose vein of leg Ulnar neuropathy Restless leg syndrome Obesity Peptic ulcer disease Pedal edema Osteoarthritis HOLLIS (obstructive sleep apnea) New onset tinnitus of right ear Lumbosacral spondylolysis Lumbar radiculopathy Hypertension Hyperlipidemia Hiatal hernia Flexor tenosynovitis of finger Erectile dysfunction Drug-induced gynecomastia Diastasis recti Diabetic neuropathy Diabetes mellitus, type II Coronary artery disease Chronic kidney disease, stage 3a Chronic back pain Carpal tunnel syndrome Carotid artery stenosis Bilateral inguinal hernia Angle-closure glaucoma Surgical History History of coronary artery stent placement Social History Alcohol intake: never Patient Tobacco Use Status: Never used Tobacco Review of Systems Const All systems reviewed & are unremarkable except as noted in HPI and below Physical Exam Vital Signs: Last Vital Signs Pulse 66 07/31/25 14:41 BP 154/60 H 07/31/25 14:41 Pulse Ox 98 07/31/25 14:41 Oxygen Delivery Method Room Air 07/31/25 14:41 BMI result Body Mass Index 32.5 Const General: comfortable and no acute distress Orientation/consciousness: patient oriented x3 HEENT Head: Yes normocephalic Mouth: Normal oral and palatal mucosa present Eyes EOM: EOMs intact bilaterally Neck Neck: Yes supple Resp Auscultation: clear to auscultation bilaterally Cardio Jugular venous distension: no JVD Rate: regular rate GI Palpation (GI): Soft to palpation Auscultation: normal bowel sounds General: Yes no CVA tenderness Back/Spine/Pelvis Back: no CVA tenderness Skin General skin exam: no rashes or lesions noted Neuro General: patient oriented x3 and moves all extremities Extrem General: Yes edema Results Reviewed Nephrology Results: Hgb, (14.0-18.0) 11.4 g/dl L 07/24/25 WBC, (4.8-10.8) 7.7 X10*3/uL 07/24/25 Plt Count, (160-400) 238 X10*3/uL 07/24/25 Sodium, (135-145) 137 mmol/L 07/24/25 Potassium, (3.3-5.1) 4.6 mmol/L 07/24/25 Chloride, (96-108) 105 mmol/L 07/24/25 Carbon Dioxide, (22-29) 24 mmol/L 07/24/25 BUN, (9-16) 51 mg/dL H 07/24/25 Creatinine, (0.5-1.4) 3.17 mg/dL H 07/24/25 Calcium, (8.4-10.2) 9.8 mg/dL 06/26/25 PTH Intact, (8.7-77.1) 629.5 pg/mL H 07/24/25 Urine Protein, (Neg-Trace) 300 (3+) mg/dL H 06/26/25 Urine Creatinine 26.73 mg/dL 05/27/25 Protein/Creatinin Ratio, (<0.2) 1.87 H 05/27/25 Assessment & Plan Assessment & Plan (1) Hypertension: Code(s): I10 - Essential (primary) hypertension Category: Medical Qualifiers: Hypertension type: primary hypertension Qualified Code(s): I10 - Essential (primary) hypertension (2) CKD stage 4 due to type 2 diabetes mellitus: Code(s): E11.22 - Type 2 diabetes mellitus with diabetic chronic kidney disease; N18.4 - Chronic kidney disease, stage 4 (severe) Category: Medical (3) Secondary hyperparathyroidism of renal origin: Code(s): N25.81 - Secondary hyperparathyroidism of renal origin Category: Medical (4) Edema: Code(s): R60.9 - Edema, unspecified Category: Medical Qualifiers: Edema type: localized Qualified Code(s): R60.0 - Localized edema (5) Anemia in chronic kidney disease (CKD): Code(s): N18.9 - Chronic kidney disease, unspecified; D63.1 - Anemia in chronic kidney disease Category: Medical Qualifiers: Chronic kidney disease stage: stage 4 (GFR 15-29) Qualified Code(s): N18.4 - Chronic kidney disease, stage 4 (severe); D63.1 - Anemia in chronic kidney disease (6) Diabetic nephropathy: Code(s): E11.21 - Type 2 diabetes mellitus with diabetic nephropathy Category: Medical Qualifiers: Diabetes mellitus type: type 2 Qualified Code(s): E11.21 - Type 2 diabetes mellitus with diabetic nephropathy Plan Rogers has diabetic nephropathy. He has history of AMANDA needing one treatment with hemodialysis. I D/[place] his Spironolactone in the past given he had breast tenderness. He is on torsemide. I started him on Metolazone 2.5 mg once a week. His blood pressure is at goal. He keeps up with his CPAP. Sestamibi scan was done in the past which showed parathyroid adenoma and has seen by Cali. He also has history of carotid stenosis and hyperuricemia. He can continue Allopurinol 100 mg daily as well as Jardiance 25 mg daily . He will need activated vitamin D soon. He should continue low-sodium diet and weigh himself daily. I asked him to C/W Magnesium and encouraged him to take tonic water for his leg cramps. He should avoid nonsteroidal anti-inflammatories. All these have been explained in detail to him and his . Follow-up appointment given Orders: Orders Complete Blood Count Auto Diff 3 Weeks D63.1 - Anemia in chronic kidney disease, E11.22 - Type 2 diabetes mellitus with diabetic chronic kidney disease, I10 - Essential (primary) hypertension, N18.4 - Chronic kidney disease, stage 4 (severe), N25.81 - Secondary hyperparathyroidism of renal origin, R60.0 - Localized edema Electrolytes 3 Weeks D63.1 - Anemia in chronic kidney disease, E11.22 - Type 2 diabetes mellitus with diabetic chronic kidney disease, I10 - Essential (primary) hypertension, N18.4 - Chronic kidney disease, stage 4 (severe), N25.81 - Secondary hyperparathyroidism of renal origin, R60.0 - Localized edema Blood Urea Nitrogen 3 Weeks D63.1 - Anemia in chronic kidney disease, E11.22 - Type 2 diabetes mellitus with diabetic chronic kidney disease, I10 - Essential (primary) hypertension, N18.4 - Chronic kidney disease, stage 4 (severe), N25.81 - Secondary hyperparathyroidism of renal origin, R60.0 - Localized edema Creatinine 3 Weeks D63.1 - Anemia in chronic kidney disease, E11.22 - Type 2 diabetes mellitus with diabetic chronic kidney disease, I10 - Essential (primary) hypertension, N18.4 - Chronic kidney disease, stage 4 (severe), N25.81 - Secondary hyperparathyroidism of renal origin, R60.0 - Localized edema Calcium 3 Weeks D63.1 - Anemia in chronic kidney disease, E11.22 - Type 2 diabetes mellitus with diabetic chronic kidney disease, I10 - Essential (primary) hypertension, N18.4 - Chronic kidney disease, stage 4 (severe), N25.81 - Secondary hyperparathyroidism of renal origin, R60.0 - Localized edema Medications: New metolazone 2.5 mg PO .once a week 15 tabs 3RF Coding Level of Care Code Est Pt Level 4 (53142) Diagnoses Primary hypertension I10 Hypertension type: primary hypertension CKD stage 4 due to type 2 diabetes mellitus E11.22; N18.4 Secondary hyperparathyroidism of renal origin N25.81 Localized edema R60.0 Edema type: localized Anemia in stage 4 chronic kidney disease N18.4; D63.1 Chronic kidney disease stage: stage 4 (GFR 15-29) Diabetic nephropathy associated with type 2 diabetes mellitus E11.21 Diabetes mellitus type: type 2
[2025-07-31 14:41] VITALS: BP 154/60; PULSE 66; O2SAT 98; BMI 32.5
--- OUTSIDE RECORDS SUMMARY | 2025-07-31 17:51 | XMS_ITS | Clinical Summary ---
Author Organization [address] [place] [address] [place] [id number] Phone Care Team Providers Care Manufacturing Engineer Chief Name Role Phone Flakito Reyes MD Primary Care Provider [phone] Allergies Active Allergy Reactions Criticality Noted Date Comments Acetaminophen 01/25/2024 Diazepam Other 12/12/2023 valium Morphine 12/12/2023 Oxycodone 01/25/2024 Oxycodone-Acetaminophen 12/12/2023 Penicillins 01/25/2024 Risperidone 01/25/2024 Medications apixaban (ELIQUIS) 5 mg tablet Take 1 tablet (5 mg total) by mouth 2 (two) times a day. 01/29/20 24 Active vit B complx/folic acid/lysine (B COMPLEX [...] 3 tablets (60 mg total) by mouth 2 (two) times daily morning and afternoon. 02/12/20 24 Active empagliflozin (Jardiance) 10 mg tablet Take 1 tablet (10 mg total) by mouth 1 (one) time each day in the morning. Active allopurinoL (ZYLOPRIM) 100 mg tablet Take 1 tablet (100 mg total) by mouth 1 (one) time each day. Active atorvastatin (LIPITOR) 80 mg tablet Take 1 tablet (80 mg total) by mouth at bedtime. Active carvediloL (COREG) 25 mg tablet TOME 1 TABLETA POR VIA ORAL DOS VECES AL REBEL CON LAS COMIDAS 180 tablet 3 01/28/20 25 Active spironolactone (ALDACTONE) 25 mg tablet TOME 1 TABLETA POR VIA ORAL TODOS [place] 90 tablet 2 03/13/20 25 Active potassium chloride 20 mEq tablet extended release TOME DOS TABLETAS POR VIA ORAL TODOS [place] 180 tablet 1 07/04/20 25 Active isosorbide mononitrate (IMDUR) 60 mg 24 hr tabletIndicatio ns:Heart failure with preserved ejection fraction (HFpEF) (CMS/HCC V24, CMS/HCC V28),Coronary artery disease due to lipid rich plaque TAKE 1 TABLET BY MOUTH 1 (ONE) TIME EACH DAY. DO NOT CRUSH OR CHEW. 30 tablet 11 07/28/20 25 Active isosorbide mononitrate (IMDUR) 60 mg 24 hr tabletIndicatio ns:Heart failure with preserved ejection fraction, unspecified HF chronicity,Tomasz nary artery disease due to lipid rich plaque Take 1 tablet (60 mg total) by mouth 1 (one) time each day. Do not crush or chew. 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 [...] rest. HLD (hyperlipidemia) 01/25/2024 Assessment & Plan (07/25/2025 11:59 AM EDT): Assessment & Plan (11/18/2024 9:11 AM EST): [...] 0 01/25/2024 SOB (shortness of breath) 01/25/2024 Assessment & Plan (07/25/2025 11:59 AM EDT): Orders: ECG 12 lead Encounters Date Type Department Care Team Description 07/24/2025 4:00 PM EDT Office Visit [facility] [address] [facility] [address] [place] [phone] Sachin Dial MD Cardiorenal syndrome with renal failure, stage 1-4 or unspecified chronic kidney disease, with heart failure (CMS/HCC V24, CMS/HCC V28) (Primary Dx); Paroxysmal atrial fibrillation (CMS/HCC V24, CMS/HCC V28); Other hyperlipidemia; Coronary artery disease of [place] artery of [place] heart with stable angina pectoris (CMS/HCC V24) 07/16/2025 Telephone [facility] [address] [facility] [address] [place] [phone] Sachin Dial MD 07/08/2025 1:00 PM EDT Office Visit General Surgery - [place] [address] [place] [address] Shirley Tarango MD History of appendicitis (Primary Dx); Unspecified abdominal pain from Last 3 Months Surgical History Surgery Date Site/Laterality Comments CARDIAC CATHETERIZATION DONE ON 07/04/2024 AT [facility] INDICATIONS:ABNORMAL STRESS TEST Medical History Medical History Date Comments Acute on chronic congestive heart failure with left ventricular diastolic dysfunction (CMS/HCC V24, CMS/HCC V28) Atrial fibrillation ([facility] V24, [facility] V28) HTN (hypertension) Aortic valve sclerosis Heart failure with preserved ejection fraction ([facility] V24, [facility] V28) HLD (hyperlipidemia) Chest pain SOB (shortness of breath) Hx of respiratory failure Family History Medical History Relation Name Comments [place] Father Diabetes Other HLD Other Hypertension Other [...] Sign Reading Time Taken Comments Blood Pressure 166/80 07/24/2025 3:50 PM EDT Pulse 64 07/24/2025 3:50 PM EDT Temperature 36.5 C (97.7 F) 07/08/2025 12:57 PM EDT Respiratory Rate - - Oxygen Saturation 96% 07/24/2025 3:50 PM EDT Inhaled Oxygen Concentration - - Weight 96.2 kg (212 lb) 07/24/2025 3:50 PM EDT Height 170.2 cm (5' 7 ) 07/24/2025 3:50 PM EDT Body Mass Index 33.2 07/24/2025 3:50 PM EDT Plan of Treatment Upcoming Encounters Date Type Department Care Team (Late st Contact Info) Description 09/02/2025 11:10 AM EST Office Visit [facility] [address] [facility] [address] [place] [address] Mar Jones NP [address] [place] [address] Health Maintenance Due Date Last Done Comments Colorectal Cancer Screening: Colonoscopy 1952 Diabetes: Annual Foot Exam 1962 Diabetes: Annual Retina Eye Exam 1962 RSV Immunization Adult Patients (1 - Risk 50-74 years 1-dose series) 2002 Falls Risk Assessment 05/14/2024 Hepatitis C Screening 05/14/2024 Medicare Annual Wellness Visit 05/14/2024 Social Influencers of Health Screening 05/14/2024 Diabetes: Annual Urine Albumin-Creatinine Ratio (uACR) 09/05/2024 Diabetes: Blood Sugar Control Test (HGBA1C) 09/05/2024 Depression Screening 10/16/2024 COVID-19 Vaccine ( season) 2025 09/15/2023, 02/24/2022, 08/29/2021, Additional history exists Influenza Vaccine (#1) 2025 , 02/22/2024, 10/18/2023, Additional history exists Diabetes: Annual GFR (Glomerular Filtration Rate) 07/17/2026 07/17/2025, 07/08/2024, 07/08/2024, Additional history exists Hypertension/CHF/CAD Annual BMP Blood Test 07/17/2026 07/17/2025, 07/08/2024, 07/08/2024, Additional history exists Cholesterol Screening (Lipid Panel) 10/14/2029 10/14/2024 DTaP,Tdap,and Td Vaccines (5 - Td or Tdap) 02/28/2033 02/28/2023, 08/16/2013, 08/16/2004, Additional history exists Hepatitis A Vaccines Completed 08/05/2010, 02/10/2010, 08/03/2009 Hepatitis B Vaccines Completed 08/05/2010, 06/03/2010, 02/10/2010 [...] Procedure Name Priority Date/Time Associated Diagnosis Comments ECG 12-LEAD Routine 07/24/2025 3:55 PM EDT Paroxysmal atrial fibrillation (CMS/HCC V24, CMS/HCC V28) B-TYPE NATRIURETIC PEPTIDE Routine 07/17/2025 2:45 PM EDT SOB (shortness of breath) Acute heart failure with preserved ejection fraction (HFpEF) (CMS/HCC V24, CMS/HCC V28) Hypertension, unspecified type BASIC METABOLIC PANEL Routine 07/17/2025 2:45 PM EDT SOB (shortness of breath) Acute heart failure with preserved ejection fraction (HFpEF) (CMS/HCC V24, CMS/HCC V28) Hypertension, unspecified type LIPID PANEL WITH REFLEX TO DIRECT LDL Routine 10/14/2024 9:58 AM EST Coronary artery disease due to lipid rich plaque from Last 3 Months or Most Recently Relevant to Health Maintenance Results * ECG 12 lead (07/24/2025 3:55 PM EDT) Ventricular Rate ECG 64 BPM GEMUSE Atrial Rate 64 BPM GEMUSE P-R Interval 284 ms GEMUSE QRS Duration 92 ms GEMUSE Q-T Interval 420 ms GEMUSE QTc 433 ms GEMUSE P Wave Plato 59 degrees GEMUSE R Plato 48 degrees GEMUSE T Plato 69 degrees GEMUSE ECG Interpretation Sinus rhythm with 1st degree A-V block Anterior infarct (cited on or before 24-JUL-2025) Abnormal ECG When compared with ECG of 05-SEP-2024 15:21, No significant change was found Confirmed by MD Jayro, Sachin ([id number]) on 07/25/2025 10:23:17 AM GEMUSE 07/24/2025 3:55 PM EDT 07/25/2025 10:23 AM EDT us Sachin Dial MD ECG ORDERABLES Final Res ult GEMUSE * (ABNORMAL) B-type natriuretic peptide (07/17/2025 2:45 PM EDT) B-Type Natriuretic Peptide 161.6(H) 0.0 - 100.0 pg/mL [facility] 1 Comment:[employer] [facility] methodology Blood Venous blood specimen / Unknown 07/17/2025 2:45 PM EDT 07/17/2025 Narrative [facility] 1 - 07/18/2025 7:06 AM EDT Performed at: [address] [id number] Blade Operator: Love Ruiz MD, Phone: [phone] Mar Jones NP LAB BLOOD ORDERABLES F inal Result Performing Organization Address City/[facility] [employer] de Phone Number [facility] 1 * (ABNORMAL) Basic metabolic panel (07/17/2025 2:45 PM EDT) Glucose 229(H) 70 - 99 mg/dL [facility] 1 Blood Urea Nitrogen (BUN) 45(H) 8 - 27 mg/dL [facility] 1 Creatinine 2.92(H) 0.76 - 1.27 mg/dL [facility] 1 eGFR 22(L) >59 mL/min/1.7 3 [facility] 1 BUN/Creatinine Ratio 15 10 - 24 [facility] 1 Sodium 141 134 - 144 mmol/L [facility] 1 Potassium 4.3 3.5 - 5.2 mmol/L [facility] 1 Chloride 102 96 - 106 mmol/L [facility] 1 Carbon Dioxide 23 20 - 29 mmol/L [facility] 1 Calcium 9.9 8.6 - 10.2 mg/dL [facility] 1 Blood Venous blood specimen / Unknown 07/17/2025 2:45 PM EDT 07/17/2025 Narrative [facility] 1 - 07/18/2025 8:08 AM EDT Performed at: 01 - [facility] [address] [id number] Blade Operator: Love Ruiz MD, Phone: [phone] Mar Jones MEDICAL GENETICS DIRECTOR LAB BLOOD ORDERABLES F inal Result [facility] 1 * (ABNORMAL) Lipid panel with reflex to direct LDL (10/14/2024 9:58 AM EST) [facility] Cholesterol 128 0 - 200 mg/dL LAB CHEMISTRY METHOD 10/14/2024 4:26 PM EST [facility] Triglycerides 208(H) 0 - 150 mg/dL LAB CHEMISTRY METHOD 10/14/2024 4:26 PM EST [facility] HDL 36(L) >=40 mg/dL LAB CHEMISTRY METHOD 10/14/2024 4:26 PM EST [facility] LDL Calculated 50 0 - 100 mg/dL LAB CHEMISTRY METHOD 10/14/2024 4:26 PM EST [facility] VLDL Cholesterol Jj 41.6 mg/dL LAB CHEMISTRY METHOD 10/14/2024 4:26 PM EST [facility] Non HDL Chol. (LDL+VLDL) 92 <145 mg/dL LAB CHEMISTRY METHOD 10/14/2024 4:26 PM EST [facility] Chol/HDL Ratio 3.6 0.0 - 4.4 LAB CHEMISTRY METHOD 10/14/2024 4:26 PM [facility] Blood Venous blood specimen / Unknown Venipuncture / Unknown 10/14/2024 9:58 AM EST 10/14/2024 9:58 AM EST Mar Jones NP LAB BLOOD ORDERABLES F inal Result [facility] [address] [place] [address], [place] [phone] from Last 3 Months or Most Recently Relevant to Health Maintenance Insurance [employer] Care Teams Manufacturing Engineer Chief Relationship Specialty Start Date End Date Flakito Reyes MD [address] [place] [id number] PCP - General 01/03/24
== END 2025-07-31 15:09 | disposition home or self-care (01) ==
LOC: HO.HKAS 14:04
PROVIDERS: PCP Internal Medicine; Visit Provider Internal Medicine Nephrology
DX: I12.9 Hypertensive chronic kidney disease with stage 1 through stage 4 chronic kidney disease, or unspecified chronic kidney disease (principal); E11.22 Type 2 diabetes mellitus with diabetic chronic kidney disease; N18.4 Chronic kidney disease, stage 4 (severe); N25.81 Secondary hyperparathyroidism of renal origin; R60.0 Localized edema; D63.1 Anemia in chronic kidney disease; E11.21 Type 2 diabetes mellitus with diabetic nephropathy
CPT/HCPCS: 99214

== ENCOUNTER → 2025-07-31 14:04 | Outpatient (BNVA) | payer OTHER, SELFPAY | PROVIDERS: PCP Internal Medicine; Visit Provider Internal Medicine Nephrology | DX: E11.22 Type 2 diabetes mellitus with diabetic chronic kidney disease (principal); N18.4 Chronic kidney disease, stage 4 (severe); N25.81 Secondary hyperparathyroidism of renal origin; R60.0 Localized edema; D63.1 Anemia in chronic kidney disease; I12.9 Hypertensive chronic kidney disease with stage 1 through stage 4 chronic kidney disease, or unspecified chronic kidney disease | CPT/HCPCS: 99212 ==

== ENCOUNTER 2025-08-28 14:26 | Outpatient (REF) | payer OTHER, SELFPAY ==
[2025-08-28 17:39] LABS: MANUAL DIFF FLAG NO
--- OUTSIDE RECORDS SUMMARY | 2025-08-28 17:53 | XMS_ITS | Clinical Summary ---
Author Organization [facility] Address [address] [facility] [address] [place] [address] Phone Care Team Providers Care Supervising Film Or Videotape Editor Name Role Phone Flakito Reyes MD Primary Care Provider [phone] Allergies Active Allergy Reactions Criticality Noted Date [...] Health Medicare [employer] Medicare Care Teams Supervising Film Or Videotape Editor Relationship Specialty Start Date End Date Flakito Reyes MD [address] [place] [address] PCP - General 10/26/20
--- OUTSIDE RECORDS SUMMARY | 2025-08-28 17:53 | XMS_ITS | Clinical Summary ---
Author Organization [address] [place] [address] [place] [phone] Phone Care Team Providers Care Psychiatric Technician Name Role Phone Flakito Reyes MD Primary Care Provider [phone] Allergies Active Allergy Reactions Criticality Noted Date [...] 2 (two) times daily morning and afternoon. 4 Active empagliflozin (Jardiance) 10 mg tablet [...] [place] 90 tablet 2 5 Active potassium chloride 20 mEq tablet extended release TOME DOS TABLETAS POR VIA ORAL TODOS [place] 180 tablet 1 5 Active isosorbide mononitrate (IMDUR) 60 mg 24 hr tabletIndication s:Heart failure with preserved ejection fraction (HFpEF) (CMS/HCC V24, CMS/[facility] V28),Coronary artery disease due to lipid rich plaque TAKE 1 TABLET BY MOUTH 1 (ONE) TIME EACH DAY. DO NOT CRUSH OR CHEW. 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 [...] Description 07/24/2025 4:00 PM EDT Office Visit [facility] - [address] [place] [phone] Sachin Dial MD Cardiorenal syndrome with renal failure, stage 1-4 or unspecified chronic kidney disease, with heart failure (CMS/HCC V24, CMS/HCC V28) (Primary Dx); Paroxysmal atrial fibrillation (CMS/HCC V24, CMS/HCC V28); Other hyperlipidemia; Coronary artery disease of [place] artery of [place] heart with stable angina pectoris ([facility] V24) 07/16/2025 Telephone [facility] - [address] [place] [phone] Sachin Dial MD 07/08/2025 1:00 PM EDT Office Visit [facility] - [place] [address] [place] [phone] Shirley Tarango MD History of appendicitis (Primary Dx); Unspecified abdominal pain from Last 3 Months Surgical History Surgery Date Site/Laterality Comments CARDIAC CATHETERIZATION DONE ON 07/04/2024 AT [facility] INDICATIONS:ABNORMAL STRESS TEST Medical History Medical [...] Family History Medical History Relation Name Comments PR Father Diabetes Other HLD Other Hypertension Other [...] Description 09/02/2025 11:10 AM EST Office Visit [facility] - [facility] [address] [facility] [address] [place] [phone] Mar Jones NP [address] [place] [address] [place] [phone] Health Maintenance Due Date Last Done Comments [...] GEMUSE QTc 433 ms GEMUSE P Wave [place] 59 degrees GEMUSE R [place] 48 degrees GEMUSE T [place] 69 degrees GEMUSE ECG Interpretation Sinus rhythm [...] - 07/18/2025 7:06 AM EDT Performed at: [address] [id number] Clay Puddler: Love Ruiz MD, Phone: [phone] Mar Jones NP LAB BLOOD ORDERABLES F inal Result Performing Organization Address City/[facility]/ZIP Co de Phone Number [id number] [id number] * [...] - 07/18/2025 8:08 AM EDT Performed at: [address] [id number] Clay Puddler: Love Ruiz MD, Phone: [phone] Mar Jones NP LAB BLOOD ORDERABLES F inal Result Performing Organization Address [facility]/ZIP Co de Phone Number [facility] 1 * (ABNORMAL) Lipid panel with reflex to direct LDL (10/14/2024 9:58 AM EST) Cholesterol 128 0 - 200 mg/dL LAB CHEMISTRY METHOD 10/14/2024 4:26 PM [facility] Triglycerides 208(H) 0 - 150 mg/dL LAB CHEMISTRY METHOD 10/14/2024 4:26 PM [facility] HDL 36(L) >=40 mg/dL LAB CHEMISTRY METHOD 10/14/2024 4:26 PM [facility] LDL Calculated 50 0 - 100 mg/dL LAB CHEMISTRY METHOD 10/14/2024 4:26 PM [facility] VLDL Cholesterol Jj 41.6 mg/dL LAB CHEMISTRY METHOD 10/14/2024 4:26 PM [facility] Non HDL Chol. (LDL+VLDL) 92 <145 mg/dL LAB CHEMISTRY METHOD 10/14/2024 4:26 PM [facility] Chol/HDL Ratio 3.6 0.0 - 4.4 LAB CHEMISTRY METHOD 10/14/2024 4:26 PM [facility] Blood Venous blood specimen / Unknown Venipuncture / Unknown 10/14/2024 9:58 AM EST 10/14/2024 9:58 AM EST us Mar Jones APPLICATION CHEMIST LAB BLOOD ORDERABLES F inal Result [facility] [address] [place] [address], from Last 3 Months or Most Recently Relevant to Health Maintenance Insurance [employer] Care Teams Psychiatric Technician Relationship Specialty Start Date End Date Flakito Reyes MD [address] [place] [id number] PCP - General 01/03/24
[2025-08-28 17:56] LABS: Hematocrit 35.6 % (42.0-52.0); Hemoglobin 11.5 g/dl (14.0-18.0); Imm Gran Abs Auto 0.03 X10*3/uL (0.00-0.03); Imm Gran Pct Auto 0.4 % (0.0-0.4); Lymphocytes Absolute Auto 1.6 X10*3/uL (1.2-4.9); Mean Corpuscular HGB Conc 32.3 g/dl (31.0-36.0); Mean Corpuscular Hemoglobin 29.7 pg (27.0-33.0); Mean Corpuscular Volume 92.0 fL (80.0-98.0); NRBC Abs Auto 0.000 X10*3/uL (0.0-0.012); NRBC Pct Auto 0.0 /100WBC (0.0-0.2); Platelet Count 242 X10*3/uL (160-400); Red Blood Count 3.87 X10*6/uL (4.60-5.80); White Blood Count 8.5 X10*3/uL (4.8-10.8)
[2025-08-28 18:06] LABS: Anion Gap 14 (12-20); Blood Urea Nitrogen 56 mg/dL (9-16); Calcium 9.8 mg/dL (8.4-10.2); Carbon Dioxide 29 mmol/L (22-29); Chloride 102 mmol/L (96-108); Estimated Glomerular Filt Rate 18; Potassium 3.8 mmol/L (3.3-5.1); Sodium 141 mmol/L (135-145)
== END 2025-08-28 14:27 | disposition home or self-care (01) ==
LOC: HO.HKASLDS 14:26
PROVIDERS: PCP Internal Medicine; Visit Provider Internal Medicine Nephrology
DX: I12.9 Hypertensive chronic kidney disease with stage 1 through stage 4 chronic kidney disease, or unspecified chronic kidney disease (principal); E11.22 Type 2 diabetes mellitus with diabetic chronic kidney disease; N18.4 Chronic kidney disease, stage 4 (severe); N25.81 Secondary hyperparathyroidism of renal origin; D63.1 Anemia in chronic kidney disease; R60.0 Localized edema
CPT/HCPCS: 36415; 80051; 82310; 82565; 84100; 84520; 85025

== ENCOUNTER 2025-09-09 10:03 | Outpatient (AMB) | payer OTHER, SELFPAY ==
--- OUTSIDE RECORDS SUMMARY | 2025-09-02 11:10 | XMS_ITS | Encounter Summary ---
Author Organization [facility] Address [address] [place] [address] Care Team Providers Care Merchandise Flow Team Member Name Role Phone Flakito Reyes MD Primary Care Provider [phone] Reason for Visit * Reason Comments Follow-up * Other Medical (Routine) - Authorized Specialty Diagnoses / Procedures Referred By Mirian schwartz Referred To Contact Cardiology Diagnoses 07/18/[address] booked with patient per Dr NIETO/ EVERARDO ok to book triage appt. Increased HOLLEY and BLE x 3 weeks [facility] [place] Procedures OFFICE VISIT Flakito Reyes MD [address] [place] [phone] Phone: tel: fax: Sachin Dial MD [address] [place] [address] Dr Peterson [address] [place] [phone] Phone: tel: fax: Referral ID Status Reason Start Date Expiration Date V isits Requested Visits Authorized [id number] Authorized 07/24/2025 07/24/2026 6 6 Encounter Details Date Type Department Care Team (Late st Contact Info) Description 09/02/2025 11:10 AM EST Office Visit [facility] - [address] [facility] [address] [place] [phone] Mar Jones NP [address] [place] [address] Dr Peterson [address] [place] [phone] Chronic heart failure with preserved ejection fraction (HFpEF) (CMS/HCC V24, CMS/HCC V28) (Primary Dx); Heart failure with preserved ejection fraction (HFpEF) (CMS/HCC V24, CMS/HCC V28); Coronary artery disease due to lipid rich plaque; Atrial fibrillation, unspecified type (CMS/HCC V24, CMS/HCC V28) Social History Tobacco Use Types Packs/Day Years [...] Sign Reading Time Taken Comments Blood Pressure 130/66 09/02/2025 11:18 AM EST Pulse 68 09/02/2025 11:18 AM EST Temperature - - Respiratory Rate - - Oxygen Saturation 98% 09/02/2025 11:18 AM EST Inhaled Oxygen Concentration - - Weight 95.3 kg (210 lb) 09/02/2025 11:18 AM EST Height - - Body Mass Index 32.89 07/24/2025 3:50 PM EDT documented in this encounter Ordered Prescriptions Prescription Sig Dispense Quantity Refills Last Filled Start Date End Date isosorbide mononitrate (IMDUR) 60 mg 24 hr tabletIndications:H eart failure with preserved ejection fraction (HFpEF) (CMS/HCC V24, CMS/HCC V28),Coronary artery disease due to lipid rich plaque Take 1 tablet (60 mg total) by mouth 1 (one) time each day. 90 tablet 3 09/02/2025 documented in this encounter Progress Notes * Mar Jones NP - 09/02/2025 11:10 AM ESTAssociated Problem(s): (HFpEF) heart failure with preserved ejection fraction (CMS/HCC V24, CMS/HCC V28) Appears to be euvolemic upon exam today. Continue current medications. Encouraged to continue to follow a low-sodium diet and perform daily weights. Patient will reach out to our office with a weightgain of 2 pounds in 1 day or 5 pounds in 5 days accompanied by worsening peripheral edema, shortness of breath or abdominal distention. * Mar Jones NP - 09/02/2025 11:10 AM ESTAssociated Problem(s): Atrial fibrillation (CMS/HCC V24, CMS/HCC V28) Patient denies perception of recurrence of arrhythmia. [...] to continue. * Mar Jones NP - 09/02/2025 11:10 AM EST Images from the original note were not included. [facility] PRIMARY LUGGAGE MAKER: Sachin Dial MD PCP: Flakito Reyes MD HPI: Rogers Garces is a 75 y.o. 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 Patient also has a history of septic shock due to acuterenal failure and was treated at [facility] in October 2023. He had rising troponins and had been empirically started on a heparin drip. Patient ended up being treated with IV Lasix and was released. December 25, 2017 patient presented to [facility] with progressive shortness of breath including [...] RCA lesions should his symptoms persist. He was last seen in the office in July [address] Dial. At that time he appeared to be hypervolemic likely in the setting of dietary indiscretion and drinking greater than a gallon of water daily. He was encouraged to follow low- sodium diet and to reduce his water consumption. He presents today for cardiology follow-up. Denies chest pain, pressure, shortness of breath, dyspnea exertion, dizziness, lightheadedness, presyncope or syncope. The patient denies palpitations, peripheral edema, abdominal distention, PND or orthopnea. There have been no falls or cardiac related ho spitalizations since the last office visit. He reports improvement in his breathing as well as peripheral edema. ACTIVE MEDICATIONS: Medications Taking[1] PAST MEDICAL HISTORY: Problem List[2] ALLERGIES: Allergies[3] SOCIAL HISTORY: Social History Tobacco Use Smoking status: Never Smokeless tobacco: Never Substance Use Topics Alcohol use: Never PHYSICAL EXAM: There were no vitals filed for this visit. Physical Exam Constitutional: General: He is not in acute distress. HENT: Head: Normocephalic. Eyes: Pupils: Pupils are equal, round, and reactive to light. Cardiovascular: Rate and Rhythm: Normal rate and regular rhythm. Pulses: Normal pulses. Heart sounds: Normal heart sounds. No murmur heard. No friction rub. No gallop. Pulmonary: Effort: Pulmonary effort is normal. No respiratory distress. Breath sounds: No wheezing, rhonchi or rales. Abdominal: General: Abdomen is flat. Bowel sounds are normal. There is no distension. Palpations: Abdomen is soft. Musculoskeletal: General: No swelling. Normal range of motion. Cervical back: Normal range of motion. Right lower leg: No edema. Left lower leg: No edema. Skin: General: Skin is warm and dry. Neurological: Mental Status: He is alert and oriented to person, place, and time. Mental status is at baseline. Psychiatric: Mood and Affect: Mood normal. Thought Content: Thought content normal. EKG: Encounter Date: 07/24/25 ECG 12 lead Result Value Ventricular Rate ECG 64 Atrial Rate 64 P-R Interval 284 QRS Duration 92 Q-T Interval 420 QTc 433 P Wave [place] 59 R [place] 48 T [place] 69 ECG Interpretation Sinus rhythm with 1st degree A-V block Anterior infarct (cited on or before 24-JUL-2025) Abnormal ECG When compared with ECG of 05-SEP-2024 15:21, No significant change was found Confirmed by MD Dial Christopher ([id number]) on 07/25/2025 10:23:17 AM *Note: Due to a large number of results and/or encounters for the requested time period, some results have not been displayed. A complete set of results can be found in Results Review. TESTING: ASSESSMENT/PLAN: Assessment & Plan Heart failure with preserved ejection fraction (HFpEF) (CMS/[facility] V24, CMS/[facility] V28) Orders: isosorbide mononitrate (IMDUR) 60 mg 24 hr tablet; Take 1 tablet (60 mg total) by mouth 1 (one) time each day. Coronary artery disease due to lipid rich plaque Denies any anginal symptoms at this time. He will continue on statin, beta- terence, isosorbide. Instructed to call 911 or go to the emergency room should the patient begin to experience chest pain orpressure lasting greater than 10 minutes does not resolve with rest. Orders: isosorbide mononitrate (IMDUR) 60 mg 24 hr tablet; Take 1 tablet (60 mg total) by mouth 1 (one) time each day. Chronic heart failure with preserved ejection fraction (HFpEF) (CMS/HCC V24, CMS/HCC V28) Appears to be euvolemic upon exam today. Continue current medications. Encouraged to continue to follow a low-sodium diet and perform daily weights. Patient will reach out to our office with a weightgain of 2 pounds in 1 day or 5 pounds in 5 days accompanied by worsening peripheral edema, shortness of breath or abdominal distention. Atrial fibrillation, unspecified type (CMS/HCC V24, CMS/HCC V28) Patient denies perception of recurrence of arrhythmia. [...] understands these risks and agrees to continue. Thank you for allowing us to participate in the care of this patient. The patient will follow up in6 months, sooner PRN. As per AHA guidelines and previously established plan of care by Dr. Sachin Dial MD, we discussed the following today: No diagnosis found. [facility] [1] No outpatient medications have been marked as taking for the 09/02/25 encounter (Appointment) with Mar Jones NP. [2] Patient Active Problem List Diagnosis (HFpEF) heart failure with preserved ejection fraction (CMS/HCC V24, CMS/HCC V28) Acute on chronic congestive heart failure with left ventricular diastolic dysfunction (CMS/HCC V24,CMS/HCC V28) Aortic valve sclerosis Atrial fibrillation (CMS/HCC V24, CMS/HCC V28) Chest pain HLD (hyperlipidemia) HTN (hypertension) Respiratory failure (CMS/HCC V24, CMS/HCC V28) SOB (shortness of breath) Coronary artery disease of [place] artery of [place] heart with stable angina pectoris (CMS/[facility] V24) Bruit of right carotid artery [3] Allergies Allergen Reactions Acetaminophen Diazepam Other valium Morphine Oxycodone Oxycodone-Acetaminophen Penicillins Risperidone Cosigned by Sachin Dial MD at 09/05/2025 12:02 PM EST documented in this encounter Plan of Treatment Not on file documented as of this encounter Visit Diagnoses Diagnosis Chronic heart failure with preserved ejection fraction (HFpEF) (CMS/HCC V24, CMS/[facility] V28)- Primary Heart failure with preserved ejection fraction (HFpEF) (CMS/HCC V24, CMS/HCC V28) Coronary artery disease due to lipid rich plaque Atrial fibrillation, unspecified type (CMS/[facility] V24, CMS/[facility] V28) documented in this encounter Discontinued Medications Medication Sig Discontinue Reason Start Date End Da te isosorbide mononitrate (IMDUR) 60 mg 24 hr tabletIndications:Heart failure with preserved ejection fraction (HFpEF) (CMS/[facility] V24, CMS/[facility] V28),Coronary artery disease due to lipid rich plaque TAKE 1 TABLET BY MOUTH 1 (ONE) TIME EACH DAY. DO NOT CRUSH OR CHEW. Reorder 07/28/2025 09/02/2025 documented as of this encounter Care Teams Merchandise Flow Team Member Relationship Specialty Start Date End Date Flakito Reyes MD [address] [place] [id number] PCP - General 01/03/24 documented as of this encounter
--- NOTE | 2025-09-09 10:07 | HO.NEPHOV ---
Vital Signs 09/09/25 10:11 Height 5 ft 7 in Weight 206 lb 6 oz BMI 32.3 BP 142/60 H Blood Pressure Location Lt brachial Position Sitting Pulse 47 L Pulse Source Pulse Oximeter Pulse Oximetry (%) 97 Oxygen Delivery Method Room Air Intake Visit Reasons: 2mnth w lab-Voicemail Full Electrician Second Required: No Accompanied by: Spouse Allergies NSAIDS (Non-Steroidal Anti-Inflamma Allergy (Verified 09/09/25 10:11) Unknown Penicillins Allergy (Verified 09/09/25 10:11) Rash acetaminophen (From Percocet) Adverse Reaction (Verified 09/09/25 10:11) Anxiety diazepam (From Valium) Adverse Reaction (Verified 09/09/25 10:11) Swelling oxycodone (From Percocet) Adverse Reaction (Verified 09/09/25 10:11) Anxiety risperidone (From Risperdal) Adverse Reaction (Verified 09/09/25 10:11) Unknown spironolactone Adverse Reaction (Verified 09/09/25 10:11) Unknown HPI Comments Details: Rogers was seen in follow-up for his chronic kidney disease. 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 He has no hypoglycemia. He had congestive heart failure in January of 2024. Echocardiogram done at that time showed hyperdynamic LV systolic function with no significant regional wall motion abnormality, indeterminate LV diastolic dysfunction due to atrial fibrillation, normal RV systolic function and size with biatrial enlargement. He denies any chest pain, nausea, vomiting, diarrhea. His weight is stable. He is compliant with his medications and low-sodium diet. His blood sugars have been better. He recently had been having worsening pedal edema and was seen by his opthalmic tech and was told that its due to renal etiology. [facility] Medical History (Updated 07/31/25 @ 22:15 by Brian Castano MD) Varicose vein of leg Ulnar neuropathy Restless leg syndrome Obesity Peptic ulcer disease Pedal edema Osteoarthritis HOLLIS (obstructive sleep apnea) New onset tinnitus of right ear Lumbosacral spondylolysis Lumbar radiculopathy Hypertension Hyperlipidemia Hiatal hernia Flexor tenosynovitis of finger Erectile dysfunction Drug-induced gynecomastia Diastasis recti Diabetic neuropathy Diabetes mellitus, type II Coronary artery disease Chronic kidney disease, stage 3a Chronic back pain Carpal tunnel syndrome Carotid artery stenosis Bilateral inguinal hernia Angle-closure glaucoma Surgical History History of coronary artery stent placement Social History Alcohol intake: never Patient Tobacco Use Status: Never used Tobacco Review of Systems Const All systems reviewed & are unremarkable except as noted in HPI and below Physical Exam Const General: comfortable and no acute distress Orientation/consciousness: patient oriented x3 HEENT Head: Yes normocephalic Mouth: Normal oral and palatal mucosa present Eyes EOM: EOMs intact bilaterally Neck Neck: Yes supple Resp Auscultation: clear to auscultation bilaterally Cardio Jugular venous distension: no JVD Rate: regular rate GI Palpation (GI): Soft to palpation Auscultation: normal bowel sounds General: Yes no CVA tenderness Back/Spine/Pelvis Back: no CVA tenderness Skin General skin exam: no rashes or lesions noted Neuro General: patient oriented x3 and moves all extremities Extrem General: Yes no pedal edema Results Reviewed Nephrology Results: Hgb, (14.0-18.0) 11.5 g/dl L 08/28/25 WBC, (4.8-10.8) 8.5 X10*3/uL 08/28/25 Plt Count, (160-400) 242 X10*3/uL 08/28/25 Sodium, (135-145) 141 mmol/L 08/28/25 Potassium, (3.3-5.1) 3.8 mmol/L 08/28/25 Chloride, (96-108) 102 mmol/L 08/28/25 Carbon Dioxide, (22-29) 29 mmol/L 08/28/25 BUN, (9-16) 56 mg/dL H 08/28/25 Creatinine, (0.5-1.4) 3.40 mg/dL H 08/28/25 Calcium, (8.4-10.2) 9.8 mg/dL 08/28/25 Phosphorus, (2.7-4.5) 4.0 mg/dL 08/28/25 PTH Intact, (8.7-77.1) 629.5 pg/mL H 07/24/25 Urine Protein, (Neg-Trace) 300 (3+) mg/dL H 06/26/25 Urine Creatinine 26.73 mg/dL 05/27/25 Protein/Creatinin Ratio, (<0.2) 1.87 H 05/27/25 Assessment & Plan Assessment & Plan (1) Hypertension: Code(s): I10 - Essential (primary) hypertension Category: Medical Qualifiers: Hypertension type: primary hypertension Qualified Code(s): I10 - Essential (primary) hypertension (2) Secondary hyperparathyroidism of renal origin: Code(s): N25.81 - Secondary hyperparathyroidism of renal origin Category: Medical (3) CKD stage 4 due to type 2 diabetes mellitus: Code(s): E11.22 - Type 2 diabetes mellitus with diabetic chronic kidney disease; N18.4 - Chronic kidney disease, stage 4 (severe) Category: Medical (4) Diabetic nephropathy: Code(s): E11.21 - Type 2 diabetes mellitus with diabetic nephropathy Category: Medical Qualifiers: Diabetes mellitus type: type 2 Qualified Code(s): E11.21 - Type 2 diabetes mellitus with diabetic nephropathy (5) Anemia in chronic kidney disease (CKD): Code(s): N18.9 - Chronic kidney disease, unspecified; D63.1 - Anemia in chronic kidney disease Category: Medical Qualifiers: Chronic kidney disease stage: stage 4 (GFR 15-29) Qualified Code(s): N18.4 - Chronic kidney disease, stage 4 (severe); D63.1 - Anemia in chronic kidney disease (6) Hyperuricemia: Code(s): E79.0 - Hyperuricemia without signs of inflammatory arthritis and tophaceous disease Category: Medical Plan Rogers has diabetic nephropathy. He has history of AMANDA needing one treatment with hemodialysis. I D/[place] his Spironolactone in the past given he had breast tenderness. He is on torsemide and Metolazone 2.5 mg once a week. His blood pressure is at goal. He keeps up with his CPAP. Sestamibi scan was done in the past which showed parathyroid adenoma and has seen by [facility]. He also has history of carotid stenosis and hyperuricemia. He can continue Allopurinol 100 mg daily as well as Jardiance 25 mg daily . He will need activated vitamin D soon. He should continue low-sodium diet and weigh himself daily. I asked him to C/W Magnesium and encouraged him to take tonic water for his leg cramps. He should avoid nonsteroidal anti-inflammatories. All these have been explained in detail to him and his . Follow-up appointment given Orders: Orders Parathyroid Hormone Intact 3 Months D63.1 - Anemia in chronic kidney disease, E11.21 - Type 2 diabetes mellitus with diabetic nephropathy, E11.22 - Type 2 diabetes mellitus with diabetic chronic kidney disease, E79.0 - Hyperuricemia without signs of inflammatory arthritis and tophaceous disease, I10 - Essential (primary) hypertension, N18.4 - Chronic kidney disease, stage 4 (severe), N25.81 - Secondary hyperparathyroidism of renal origin Calcium 3 Months D63.1 - Anemia in chronic kidney disease, E11.21 - Type 2 diabetes mellitus with diabetic nephropathy, E11.22 - Type 2 diabetes mellitus with diabetic chronic kidney disease, E79.0 - Hyperuricemia without signs of inflammatory arthritis and tophaceous disease, I10 - Essential (primary) hypertension, N18.4 - Chronic kidney disease, stage 4 (severe), N25.81 - Secondary hyperparathyroidism of renal origin Blood Urea Nitrogen 3 Months D63.1 - Anemia in chronic kidney disease, E11.21 - Type 2 diabetes mellitus with diabetic nephropathy, E11.22 - Type 2 diabetes mellitus with diabetic chronic kidney disease, E79.0 - Hyperuricemia without signs of inflammatory arthritis and tophaceous disease, I10 - Essential (primary) hypertension, N18.4 - Chronic kidney disease, stage 4 (severe), N25.81 - Secondary hyperparathyroidism of renal origin Creatinine 3 Months D63.1 - Anemia in chronic kidney disease, E11.21 - Type 2 diabetes mellitus with diabetic nephropathy, E11.22 - Type 2 diabetes mellitus with diabetic chronic kidney disease, E79.0 - Hyperuricemia without signs of inflammatory arthritis and tophaceous disease, I10 - Essential (primary) hypertension, N18.4 - Chronic kidney disease, stage 4 (severe), N25.81 - Secondary hyperparathyroidism of renal origin Phosphorus 3 Months D63.1 - Anemia in chronic kidney disease, E11.21 - Type 2 diabetes mellitus with diabetic nephropathy, E11.22 - Type 2 diabetes mellitus with diabetic chronic kidney disease, E79.0 - Hyperuricemia without signs of inflammatory arthritis and tophaceous disease, I10 - Essential (primary) hypertension, N18.4 - Chronic kidney disease, stage 4 (severe), N25.81 - Secondary hyperparathyroidism of renal origin Vitamin D 25-OH Total 3 Months D63.1 - Anemia in chronic kidney disease, E11.21 - Type 2 diabetes mellitus with diabetic nephropathy, E11.22 - Type 2 diabetes mellitus with diabetic chronic kidney disease, E79.0 - Hyperuricemia without signs of inflammatory arthritis and tophaceous disease, I10 - Essential (primary) hypertension, N18.4 - Chronic kidney disease, stage 4 (severe), N25.81 - Secondary hyperparathyroidism of renal origin Electrolytes 3 Months D63.1 - Anemia in chronic kidney disease, E11.21 - Type 2 diabetes mellitus with diabetic nephropathy, E11.22 - Type 2 diabetes mellitus with diabetic chronic kidney disease, E79.0 - Hyperuricemia without signs of inflammatory arthritis and tophaceous disease, I10 - Essential (primary) hypertension, N18.4 - Chronic kidney disease, stage 4 (severe), N25.81 - Secondary hyperparathyroidism of renal origin Coding Level of Care Code Est Pt Level 4 (64084) Diagnoses Primary hypertension I10 Hypertension type: primary hypertension Secondary hyperparathyroidism of renal origin N25.81 CKD stage 4 due to type 2 diabetes mellitus E11.22; N18.4 Diabetic nephropathy associated with type 2 diabetes mellitus E11. Diabetes mellitus type: type 2 Anemia in stage 4 chronic kidney disease N18.4; D63.1 Chronic kidney disease stage: stage 4 (GFR 15-29) Hyperuricemia E79.0
[2025-09-09 10:11] VITALS: BP 142/60; PULSE 47; O2SAT 97; BMI 32.3
--- OUTSIDE RECORDS SUMMARY | 2025-09-09 12:09 | XMS_ITS | Clinical Summary ---
Author Organization [address] [place] [address] [place] [phone] Phone Care Team Providers Care Museum Guide Name Role Phone Flakito Reyes MD Primary Care Provider [phone] Allergies Active Allergy Reactions Criticality Noted Date Comments Acetaminophen 01/25/2024 Diazepam Other 12/12/2023 valium Morphine 12/12/2023 Oxycodone 01/25/2024 Oxycodone-Acetaminophen 12/12/2023 Penicillins 01/25/2024 Risperidone 01/25/2024 Medications apixaban (ELIQUIS) 5 mg tablet Take 1 tablet (5 mg total) by mouth 2 (two) times a day. Active vit B complx/folic acid/lysine (B COMPLEX VITAMINS PO) Take by mouth. Ac tive cholecalciferol (VITAMIN D-3) 1,250 mcg (50,000 unit) [...] [place] 90 tablet 2 5 Active Additional Information Patient not taking.Reported on 09/02/2025 potassium chloride 20 mEq tablet extended release TOME DOS TABLETAS POR VIA ORAL TODOS [place] 180 tablet 1 5 Active isosorbide mononitrate (IMDUR) 60 mg 24 hr tabletIndicatio ns:Heart failure with preserved ejection fraction (HFpEF) (CMS/HCC V24, CMS/HCC V28),Coronary artery disease due to lipid rich plaque Take 1 tablet (60 mg total) by mouth 1 (one) time each day. 90 tablet 3 5 Active isosorbide mononitrate (IMDUR) 60 mg 24 hr tabletIndicatio ns:Heart failure with preserved ejection fraction (HFpEF) (CMS/HCC V24, CMS/HCC V28),Coronary artery disease due to lipid rich plaque TAKE 1 TABLET BY MOUTH 1 (ONE) TIME EACH DAY. DO NOT CRUSH OR CHEW. 30 tablet 11 5 025 Discontin ued(Reord er) Active Problems Problem Noted Date Diagnosed Date Coronary artery disease of n ative artery of [place] heart with stable angina pectoris (CMS/HCC V24) [...] V24, CMS/HCC V28) 02/12/2024 Assessment & Plan (09/03/2025 3:46 PM EST): Appears to be euvolemic upon exam today. Continue current medications. Encouraged to continue to follow a low-sodium diet and perform daily weights. Patient will reach out to our office with a weight gain of 2 pounds in 1 day or 5 pounds in 5 days accompanied by worsening peripheral edema, shortness of breath or abdominal distention. Assessment & Plan (11/18/2024 9:11 AM EST): [...] the patient has just come from his retoucher who is 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 [...] and agrees to continue. Assessment & Plan (09/03/2025 3:46 PM EST): Patient denies perception of recurrence of [...] Encounters Date Type Department Care Team Description 09/02/2025 11:10 AM EST Office Visit [facility] [address] [place] [address] Mar Jones NP Chronic heart failure with preserved ejection fraction (HFpEF) (CMS/HCC V24, CMS/HCC V28) (Primary Dx); Heart failure with preserved ejection fraction (HFpEF) (CMS/HCC V24, CMS/HCC V28); Coronary artery disease due to lipid rich plaque; Atrial fibrillation, unspecified type ([facility] V24, CMS/HCC V28) 07/24/2025 4:00 PM EDT Office Visit [facility] [address] [place] [phone] Sachin Dial MD Cardiorenal syndrome with renal failure, stage 1-4 or unspecified chronic kidney disease, with heart failure ([facility] V24, CMS/[facility] V28) (Primary Dx); Paroxysmal atrial fibrillation (CMS/[facility] V24, CMS/HCC V28); Other hyperlipidemia; Coronary artery disease of [place] artery of [place] heart with stable angina pectoris ([facility] V24) 07/16/2025 Telephone [facility] [address] [facility] [address] [place] [phone] Sachin Dial MD 07/08/2025 1:00 PM EDT Office Visit [facility] [place] [address] [place] [phone] Shirley Tarango MD History of appendicitis (Primary Dx); Unspecified abdominal pain from Last 3 Months Surgical History Surgery Date Site/Laterality Comments CARDIAC CATHETERIZATION DONE ON 07/04/2024 AT [facility] INDICATIONS:ABNORMAL STRESS TEST Medical History Medical History Date Comments Acute on chronic congestive heart failure with left ventricular diastolic dysfunction ([facility] V24, CMS/HCC V28) Atrial fibrillation ([facility] V24, CMS/HCC V28) HTN (hypertension) Aortic valve sclerosis Heart failure with preserved ejection fraction (CMS/[facility] V24, CMS/HCC V28) HLD (hyperlipidemia) Chest pain SOB (shortness of breath) Hx of respiratory failure Family History Medical History Relation Name Comments [place] Father Diabetes Other HLD Other Hypertension Other [...] Pulse 68 09/02/2025 11:18 AM EST Temperature 36.5 C (97.7 F) 07/08/2025 12:57 PM EDT Respiratory Rate - - Oxygen Saturation 98% 09/02/2025 11:18 AM EST Inhaled Oxygen Concentration - - Weight 95.3 kg (210 lb) 09/02/2025 11:18 AM EST Height 170.2 cm (5' 7 ) 07/24/2025 3:50 PM EDT Body Mass Index 32.89 07/24/2025 3:50 PM EDT Plan of Treatment Health Maintenance Due Date [...] 2025 09/15/2023, 02/24/2022, 08/29/2021, Additional history exists Diabetes: Annual GFR (Glomerular [...] 01/09/2015, Additional history exists Influenza Vaccine Completed 08/05/2025, , 02/22/2024, Additional history exists HIB Vaccines Aged Out [...] ECG 12 lead (07/24/2025 3:55 PM EDT) Pathologist [facility] Ventricular Rate ECG 64 BPM GEMUSE Atrial Rate 64 BPM GEMUSE P-R Interval 284 ms GEMUSE QRS Duration 92 ms GEMUSE Q-T Interval 420 ms GEMUSE QTc 433 ms GEMUSE P Wave [place] 59 degrees GEMUSE R [place] 48 degrees GEMUSE T [place] 69 degrees GEMUSE ECG Interpretation Sinus rhythm with 1st degree A-V block Anterior infarct (cited on or before 24-JUL-2025) Abnormal ECG When compared with ECG of 05-SEP-2024 15:21, No significant change was found Confirmed by MD Jayro, Sachin ([id number]) on 07/25/2025 10:23:17 AM GEMUSE 07/24/2025 3:55 PM EDT 07/25/2025 10:23 AM EDT Sachin Dial MD ECG ORDERABLES Final Res ult GEMUSE * (ABNORMAL) B-type natriuretic peptide (07/17/2025 2:45 PM EDT) [facility] B-Type Natriuretic Peptide 161.6(H) 0.0 - 100.0 pg/mL [facility] 1 Comment:[employer] [facility] XP methodology Blood Venous blood specimen / Unknown 07/17/2025 2:45 PM EDT 07/17/2025 Narrative [facility] 1 - 07/18/2025 7:06 AM EDT Performed at: 01 - [facility] [id number] Technical Support Coordinator: Love Ruiz MD, Phone: [phone] Mar Jones NP LAB BLOOD ORDERABLES F inal Result [facility] 1 * (ABNORMAL) Basic metabolic panel [...] 8:08 AM EDT Performed at: 01 - [facility] [id number] Technical Support Coordinator: Love Ruiz MD, Phone: [phone] us Mar Jones [employer] LAB BLOOD ORDERABLES F inal Result [facility] 1 * (ABNORMAL) Lipid panel with reflex to direct LDL (10/14/2024 9:58 AM EST) Pathologist [facility] Cholesterol 128 0 - 200 mg/dL LAB CHEMISTRY METHOD 10/14/2024 4:26 PM [facility] Triglycerides 208(H) 0 - 150 mg/dL LAB CHEMISTRY METHOD 10/14/2024 4:26 PM [facility] HDL 36(L) >=40 mg/dL LAB CHEMISTRY METHOD 10/14/2024 4:26 PM [facility] LDL Calculated 50 0 - 100 mg/dL LAB CHEMISTRY METHOD 10/14/2024 4:26 PM [facility] VLDL Cholesterol Jj 41.6 mg/dL LAB CHEMISTRY METHOD 10/14/2024 4:26 PM [facility] Non HDL Chol. (LDL+VLDL) 92 <145 mg/dL LAB CHEMISTRY METHOD 10/14/2024 4:26 PM EST [facility] Chol/HDL Ratio 3.6 0.0 - 4.4 LAB CHEMISTRY METHOD 10/14/2024 4:26 PM EST [facility] Blood Venous blood specimen / Unknown Venipuncture / Unknown 10/14/2024 9:58 AM EST 10/14/2024 9:58 AM EST us Mar Jones [employer] LAB BLOOD ORDERABLES F inal Result [facility] ([facility]) [facility] [address] [place] [address], from Last 3 Months or Most Recently Relevant to Health Maintenance Insurance [employer] Care Teams Museum Guide Relationship Specialty Start Date End Date Flakito Reyes MD [address] [place] [id number] PCP - General 01/03/24
--- OUTSIDE RECORDS SUMMARY | 2025-09-09 12:09 | XMS_ITS | Clinical Summary ---
Author Organization [facility] Address [address] [facility] [address] [place] [address] Phone Care Team Providers Care Dry Clipper Tender Name Role Phone Flakito Reyes MD Primary Care Provider [phone] Allergies Active Allergy Reactions Criticality Noted Date [...] Health Medicare [employer] Medicare Care Teams Dry Clipper Tender Relationship Specialty Start Date End Date Flakito Reyes MD [address] [place] [address] PCP - General 10/26/20
== END 2025-09-09 10:26 | disposition home or self-care (01) ==
LOC: HO.HKAS 10:04
PROVIDERS: PCP Internal Medicine; Visit Provider Internal Medicine Nephrology
DX: I12.9 Hypertensive chronic kidney disease with stage 1 through stage 4 chronic kidney disease, or unspecified chronic kidney disease (principal); N25.81 Secondary hyperparathyroidism of renal origin; E11.22 Type 2 diabetes mellitus with diabetic chronic kidney disease; N18.4 Chronic kidney disease, stage 4 (severe); E11.21 Type 2 diabetes mellitus with diabetic nephropathy; D63.1 Anemia in chronic kidney disease; E79.0 Hyperuricemia without signs of inflammatory arthritis and tophaceous disease
CPT/HCPCS: 99214

== ENCOUNTER → 2025-09-09 10:03 | Outpatient (BNVA) | payer OTHER, SELFPAY | PROVIDERS: PCP Internal Medicine; Visit Provider Internal Medicine Nephrology | DX: I10 Essential (primary) hypertension (principal); E11.22 Type 2 diabetes mellitus with diabetic chronic kidney disease; N25.81 Secondary hyperparathyroidism of renal origin; N18.4 Chronic kidney disease, stage 4 (severe); D63.1 Anemia in chronic kidney disease; E79.0 Hyperuricemia without signs of inflammatory arthritis and tophaceous disease | CPT/HCPCS: 99212 ==